=== PATIENT | female | born 1935 | race Caucasian/White ===

== ENCOUNTER → 2017-03-18 | Outpatient (CLI) | payer OTHER ==
[2017-03-18 17:54] LABS: HEMATOCRIT 40.8 % (37-47); MEAN CELL VOLUME 100.2 fL (80-100); MEAN CORPUSCULAR HEMOGLOBIN 33.4 pg (25-34); MEAN CORPUSCULAR HGB CONC 33.3 g/dl (32-36); PLATELET COUNT 168 K/uL (130-400); RED BLOOD COUNT 4.07 M/uL (4.2-5.4); WHITE BLOOD COUNT 6.65 K/uL (4.8-10.8)
[2017-03-18 18:13] LABS: ALT/SGPT 38 U/L (12-78); AST/SGOT 30 U/L (15-37); BLOOD UREA NITROGEN 17 mg/dl (7-18); BUN/CREATININE RATIO 17.9 (10-20); CALCIUM 8.9 mg/dl (8.5-10.1); CARBON DIOXIDE 30 mmol/L (21-32); CHLORIDE 106 mmol/L (98-107); CREATININE 0.95 mg/dl (0.60-1.20); GLUCOSE 90 mg/dl (70-99); POTASSIUM 3.9 mmol/L (3.5-5.1); SODIUM 142 mmol/L (136-145)
[2017-03-18 18:15] LABS: ALB/GLOB RATIO 0.9 (0.9-2); ALKALINE PHOSPHATASE 121 U/L (45-117)
== END | disposition home or self-care (01) ==
LOC: C.LABMFLN 13:33
PROVIDERS: ATTEND Physician Assistant
DX: I48.91 Unspecified atrial fibrillation (principal)

== ENCOUNTER → 2017-10-10 | Outpatient (CLI) | payer OTHER ==
[2017-10-10 18:04] LABS: HEMATOCRIT 38.9 % (37-47); HEMOGLOBIN 12.4 g/dL (12.0-16.0); MEAN CELL VOLUME 102.1 fL (80-100); MEAN CORPUSCULAR HEMOGLOBIN 32.5 pg (25-34); MEAN CORPUSCULAR HGB CONC 31.9 g/dl (32-36); MEAN PLATELET VOLUME 10.3 fL (7.4-10.4); PLATELET COUNT 244 K/uL (130-400); RED CELL DISTRIBUTION WIDTH CV 13.8 % (11.5-14.5); WHITE BLOOD COUNT 7.81 K/uL (4.8-10.8)
[2017-10-10 18:16] LABS: ALT/SGPT 23 U/L (12-78); AST/SGOT 27 U/L (15-37); BLOOD UREA NITROGEN 16 mg/dl (7-18); CALCIUM 9.3 mg/dl (8.5-10.1); CARBON DIOXIDE 31 mmol/L (21-32); CHOLESTEROL 107 mg/dl (0-200); CREATININE 0.95 mg/dl (0.60-1.20); GLUCOSE 96 mg/dl (70-99); POTASSIUM 3.9 mmol/L (3.5-5.1); SODIUM 140 mmol/L (136-145)
[2017-10-10 18:19] LABS: LDL CHOLESTEROL CALCULATED 46 mg/dl
== END | disposition home or self-care (01) ==
LOC: C.LABMFLN 14:57
PROVIDERS: ATTEND Internal Medicine Cardiovascular Disease
DX: I48.91 Unspecified atrial fibrillation (principal); I35.0 Nonrheumatic aortic (valve) stenosis; I42.9 Cardiomyopathy, unspecified; I25.10 Atherosclerotic heart disease of native coronary artery without angina pectoris

== ENCOUNTER 2019-10-15 21:13 | Inpatient (IN) ==
[2019-10-15] MEDS ORDERED: SODIUM CHLORIDE 0.9% 500 ML IV ONE (21:37)
[2019-10-15] MEDS ORDERED: CEFEPIME 2,000 MG/20 ML VIAL IV STA (21:37)
[2019-10-15] MEDS ORDERED: KETOROLAC TROMETHAMINE 15 MG/ML VIAL IV ONE (21:37)
--- NOTE | 2019-10-15 21:43 | Emergency Department Note ---
Impression & Plan Sepsis, Cellulitis, Tachycardia, Fever, Hypomagnesemia ED Provider Note NAME: SUDEEP HANNAH AGE: 84 SEX: F : 1935 ARRIVES VIA: Ambulance INFORMANT: [Patient][ems, nurse] ED PROVIDER(S): [Romaine Linares MD] CHIEF COMPLAINT: Fever HISTORY OF PRESENT ILLNESS: The patient is an 84-year-old female who presents from [facility] for a fever. The patient has no complaints. She is a poor historian and does not really want to be at this hospital. She received oral Tylenol just prior to arrival, 1 g was given. The fever was reported today. The patient denies any stuffy nose or nasal congestion. She has had no cough. The patient states that she is short of breath but this is baseline. She has had no vomiting, no diarrhea, no abdominal pain. She states that it does hurt somewhat to urinate but this is a common thing for her. She does have lymphedema, there is some right leg redness, she is unsure if the right leg redness is new or old. No further history obtainable given her mental state. A significant amount of the history was obtained from the nurses and EMS. Of note, no known coronavirus exposures. REVIEW OF SYSTEMS: Limited secondary to mental state, please see the HPI. PMHx/PSHx: See Below SOCIAL HISTORY: See Below. PHYSICAL EXAM: GENERAL: Patient is in no acute distress. HEENT: No acute trauma, normocephalic atraumatic, mucous membranes moist, no nasal congestion, no scleral icterus. NECK: No stridor, no adenopathy, no meningismus, trachea is midline. LUNGS: Clear to auscultation bilaterally when listening anterior, no wheeze, no rhonchi, breath sounds equal. HEART: Mildly tachycardic, subtle systolic murmur, normal rhythm. ABDOMEN: Soft, nontender, bowel sounds positive, no hernias, no peritonitis. EXTREMITIES: No cyanosis, significant bilateral pedal edema with some distal right leg erythema and warmth. No drainage. Full range of motion of all the joints without pain or difficulty, no signs for acute trauma. NEUROLOGIC: Poor historian, sleepy, moves all extremities. Awakens to loud voice and can answer simple directed questions. SKIN: No rash, no jaundice, no diaphoresis. DIFFERENTIAL DIAGNOSIS: Sepsis, UTI, pneumonia, metabolic, electrolyte abnormalities, cardiac sources, intracerebral event, toxicologic, neurologic, as well as other pathologies. EMERGENCY DEPARTMENT COURSE/PROCEDURES: ECG: Indication was tachycardia. EKG shows atrial fibrillation with a rate of 102. QTc is 375. There is diffuse nonspecific ST change. There is an old anterior infarct. No PVCs, no ST elevation. Continuous Cardiac Monitoring: An order was placed for continuous cardiac monitoring. The monitor shows a rate of 88 with atrial fibrillation Critical Care Note: I have personally spent greater than 42 minutes of critical care time in the direct management of this patient. This includes bedside care, interpretation of diagnostic studies, and testing, discussion with consultants, patient, and family members, and other required patient management activities. This 42 minutes is in excess of all separately billable procedures. MEDICAL DECISION MAKING: There is a moderate leukocytosis at 15,000, this could be consistent with infection. The patient is anemic with a hemoglobin of 10.4. This is a slight drop for her. There is a normal platelet count. No coagulopathy. Magnesium was low at 1.6. No kidney failure. No concerning liver enzyme elevation. EKG showed atrial fibrillation without any acute ischemic change. Cardiac enzyme testing x1 is not consistent with acute cardiac injury. Urinalysis does not show any evidence for infection. Blood cultures are pending. Influenza testing was negative. Chest film does not show pneumonia or CHF. On my exam, the patient did appear to have a right lower extremity cellulitis. The patient was aggressively managed. She did meet criteria for sepsis. The source is likely the right lower extremity cellulitis. She received IV saline, a total of 1 L was given. She received IV Toradol, IV magnesium, IV cefepime and IV vancomycin. She had already received oral Tylenol prior to arrival. I talked to the patient about her findings. She does seem to be in improved condition when compared to her arrival. I spoke with case management. The on- call hospitalist has been consulted. Past Med/Surg History Medical History Atrial fibrillation, chronic Coronary artery disease Dyslipidemia Hypertension Severe aortic stenosis Social History Preferred Language: Georgian Communication Ability: Effective Entry Level Project Coordinator Required: No Beliefs That Will Affect Care: None Current Living Situation: Family Feels Safe at Home: Yes Smoking Status: Never smoker Hx Alcohol Use: No Hx Substance Use: No Allergies Allergies Allergy/AdvReac Type Severity Reaction Status Date / Time aspirin Allergy Unknown Verified 10/15/19 22:34 milk Allergy Unknown Verified 10/15/19 22:34 Home Meds Home Medications Medication Instructions Recorded Confirmed Tylenol 650 mg PO Q4 PRN 10/15/19 10/15/19 albuterol sulfate 2 inh INHALATION Q6 PRN 10/15/19 10/15/19 alendronate 70 mg PO WK 10/15/19 10/15/19 aspirin [Aspir-81] 81 mg PO DAILY 10/15/19 10/15/19 atorvastatin 40 mg PO DAILY 10/15/19 10/15/19 bisacodyl 10 mg [place] DAILY PRN 10/15/19 10/15/19 calcium carbonate-vitamin D3 1 tab PO BID 10/15/19 10/15/19 [Calcium 500 + D] cholecalciferol (vitamin D3) 1,000 unit PO DAILY 10/15/19 10/15/19 [Vitamin D3] clopidogrel [Plavix] 75 mg PO DAILY 10/15/19 10/15/19 digoxin [Digox] 125 mcg PO MOWEFR 10/15/19 10/15/19 docusate sodium 100 mg PO BID PRN 10/15/19 10/15/19 heparin (porcine) 5,000 unit SUBCUT Q12H 10/15/19 10/15/19 melatonin 3 mg PO HS PRN 10/15/19 10/15/19 metoprolol succinate 200 mg PO DAILY 10/15/19 10/15/19 mirabegron [Myrbetriq] 25 mg PO DAILY 10/15/19 10/15/19 polyethylene glycol 3350 [Miralax] 17 g PO DAILY PRN 10/15/19 10/15/19 potassium chloride 10 meq PO BID 10/15/19 10/15/19 torsemide 20 mg PO DAILY 10/15/19 10/15/19 wheat dextrin [Benefiber Sugar 8 g PO BID 10/15/19 10/15/19 Free (dextrin)] Results & Data (ED) Vital Signs Vital Signs - 24 hr 10/15/19 21:19 10/15/19 21:21 10/15/19 21:22 Temperature 38.9 C H Temperature Source Oral Pulse Rate 114 H 120 H 124 H Pulse Rate from SpO2 Sensor 118 H 132 H Respiratory Rate 36 H 24 37 H Respiratory Effort / Characteristics Non-Labored Respiratory Depth Normal Blood Pressure 180/100 H 180/100 H Blood Pressure Mean 135 126 Pulse Oximetry 92 92 92 Oxygen Delivery Method Room Air Oxygen Flow Rate Sepsis Recent Fever Within 48 Hours Yes Sepsis Action Taken by Nursing No Action Required 10/15/19 21:30 10/15/19 21:31 10/15/19 21:40 Temperature Temperature Source Pulse Rate 106 H 116 H 114 H Pulse Rate from SpO2 Sensor 118 H 109 H 117 H Respiratory Rate 35 H 35 H 33 H Respiratory Effort / Characteristics Respiratory Depth Blood Pressure 107/53 L Blood Pressure Mean 55 Pulse Oximetry 92 92 90 Oxygen Delivery Method Oxygen Flow Rate Sepsis Recent Fever Within 48 Hours Sepsis Action Taken by Nursing 10/15/19 21:41 10/15/19 21:50 10/15/19 22:00 Temperature Temperature Source Pulse Rate 116 H 110 H Pulse Rate from SpO2 Sensor 114 H Respiratory Rate 30 H 36 H Respiratory Effort / Characteristics Respiratory Depth Blood Pressure Blood Pressure Mean Pulse Oximetry 90 99 89 L Oxygen Delivery Method Room Air Room Air Oxygen Flow Rate Sepsis Recent Fever Within 48 Hours Sepsis Action Taken by Nursing 10/15/19 22:07 10/15/19 22:10 10/15/19 22:16 Temperature Temperature Source Pulse Rate 110 H 106 H Pulse Rate from SpO2 Sensor 108 H 110 H Respiratory Rate 32 H 30 H Respiratory Effort / Characteristics Respiratory Depth Blood Pressure 103/40 L Blood Pressure Mean 48 Pulse Oximetry 99 99 99 Oxygen Delivery Method Nasal Cannula Nasal Cannula Oxygen Flow Rate 2 2 Sepsis Recent Fever Within 48 Hours Sepsis Action Taken by Nursing 10/15/19 22:20 10/15/19 22:30 10/15/19 22:31 Temperature Temperature Source Pulse Rate 88 113 H 103 H Pulse Rate from SpO2 Sensor Respiratory Rate 26 H 33 H 30 H Respiratory Effort / Characteristics Respiratory Depth Blood Pressure Blood Pressure Mean 123 Pulse Oximetry Oxygen Delivery Method Oxygen Flow Rate Sepsis Recent Fever Within 48 Hours Sepsis Action Taken by Nursing 10/15/19 22:35 10/15/19 22:40 Temperature Temperature Source Pulse Rate 111 H 100 H Pulse Rate from SpO2 Sensor 108 H 107 H Respiratory Rate 29 H 28 H Respiratory Effort / Characteristics Respiratory Depth Blood Pressure 102/61 Blood Pressure Mean 74 Pulse Oximetry 99 99 Oxygen Delivery Method Oxygen Flow Rate Sepsis Recent Fever Within 48 Hours Sepsis Action Taken by Custodial Medications Current Medication List: was personally reviewed by me Laboratory Data Attestation: I reviewed the patient's lab results. Result diagrams: 10/15/19 22:07 10/15/19 22:07 Lab Results 10/15/19 10/15/19 10/15/19 Range/Units 22:07 22:07 22:07 WBC 15.10 H (4.8-10.8) K/uL RBC 3.26 L (4.2-5.4) M/uL Hgb 10.4 L (12.0-16.0) g/dL Hct 32.9 L (37-47) % MCV 100.9 H (80-100) fL MCH 31.9 (25-34) pg MCHC 31.6 L (32-36) g/dL RDW Std Deviation 52.7 H (36.4-46.3) fL RDW Coeff of Vanita 14.3 (11.5-14.5) % Plt Count 264 (130-400) K/uL MPV 10.5 H (7.4-10.4) fL Immature Gran % (Auto) 0.7 % Neut % (Auto) 80.5 % Lymph % (Auto) 8.1 % Weber % (Auto) 10.4 % Eos % (Auto) 0.2 % Baso % (Auto) 0.1 % Immature Gran # (Auto) 0.10 H (0.00-0.02) K/uL Neut # (Auto) 12.15 H (1.4-6.5) K/uL Lymph # (Auto) 1.23 (1.2-3.4) K/uL Weber # (Auto) 1.57 H (0.11-0.59) K/uL Eos # (Auto) 0.03 (0-0.5) K/uL Baso # (Auto) 0.02 (0-0.2) K/uL Absolute Nucleated RBC 0.08 H (0-0) K/uL Nucleated RBC % (auto) 0.5 % PT 11.4 (9.0-12.0) Seconds INR 1.1 (0.9-1.1) APTT 28.9 (21.0-31.0) Seconds PTT Ratio 1.0 Sodium (136-145) mmol/L Potassium (3.5-5.1) mmol/L Chloride (98-107) mmol/L Carbon Dioxide (21-32) mmol/L Anion Gap (3-11) BUN (7-18) mg/dl Creatinine (0.6-1.2) mg/dl Est Cr Clr Drug Dosing ml/min Est GFR ( Amer) Est GFR (Non-Af Amer) BUN/Creatinine Ratio (10-20) Glucose (70-99) mg/dl Lactate (0.4-2.0) mmol/L Calcium (8.5-10.1) mg/dl Magnesium (1.8-2.4) mg/dl Total Bilirubin (0.2-1) mg/dl AST (15-37) U/L ALT (12-78) U/L Alkaline Phosphatase (45-117) U/L Troponin I (0-0.045) ng/ml Total Protein (6.4-8.2) gm/dl Albumin (3.4-5.0) gm/dl Globulin (2.5-4.0) gm/dl Albumin/Globulin Ratio (0.9-2) Procalcitonin 2.13 H (0-0.5) ng/ml Urine Color Urine Appearance (Clear) Urine pH (4.5-7.5) Ur Specific Nash (1.000-1.030) Urine Protein (Negative) Urine Glucose (UA) (Negative) Urine Ketones (Negative) Urine Blood (Negative) Urine Nitrite (Negative) Urine Bilirubin (Negative) Urine Urobilinogen (Negative) Ur Leukocyte Esterase (Negative) Urine WBC (Auto) (0-5) /hpf Urine RBC (Auto) (0-4) /hpf U Hyaline Cast (Auto) (0-5) /lpf U Epithel Cells (Auto) (0-5) /lpf Urine Bacteria (Auto) (Negative) Influenza Type A (PCR) (Neg) Influenza Type B (PCR) (Neg) 10/15/19 10/15/19 10/15/19 Range/Units 22:07 22:07 22:10 WBC (4.8-10.8) K/uL RBC (4.2-5.4) M/uL Hgb (12.0-16.0) g/dL Hct (37-47) % MCV (80-100) fL MCH (25-34) pg MCHC (32-36) g/dL RDW Std Deviation (36.4-46.3) fL RDW Coeff of Vanita (11.5-14.5) % Plt Count (130-400) K/uL MPV (7.4-10.4) fL Immature Gran % (Auto) % Neut % (Auto) % Lymph % (Auto) % Weber % (Auto) % Eos % (Auto) % Baso % (Auto) % Immature Gran # (Auto) (0.00-0.02) K/uL Neut # (Auto) (1.4-6.5) K/uL Lymph # (Auto) (1.2-3.4) K/uL Weber # (Auto) (0.11-0.59) K/uL Eos # (Auto) (0-0.5) K/uL Baso # (Auto) (0-0.2) K/uL Absolute Nucleated RBC (0-0) K/uL Nucleated RBC % (auto) % PT (9.0-12.0) Seconds INR (0.9-1.1) APTT (21.0-31.0) Seconds PTT Ratio Sodium 137 (136-145) mmol/L Potassium 4.2 (3.5-5.1) mmol/L Chloride 100 (98-107) mmol/L Carbon Dioxide 36 H (21-32) mmol/L Anion Gap 1.0 L (3-11) BUN 21 H (7-18) mg/dl Creatinine 1.03 (0.6-1.2) mg/dl Est Cr Clr Drug Dosing 39.2 ml/min Est GFR ( Amer) 58.2 Est GFR (Non-Af Amer) 50.2 BUN/Creatinine Ratio 20.5 H (10-20) Glucose 125 H (70-99) mg/dl Lactate 1.3 (0.4-2.0) mmol/L Calcium 9.4 (8.5-10.1) mg/dl Magnesium 1.6 L (1.8-2.4) mg/dl Total Bilirubin 0.9 (0.2-1) mg/dl AST 33 (15-37) U/L ALT 33 (12-78) U/L Alkaline Phosphatase 112 (45-117) U/L Troponin I 0.031 (0-0.045) ng/ml Total Protein 6.0 L (6.4-8.2) gm/dl Albumin 2.1 L (3.4-5.0) gm/dl Globulin 3.9 (2.5-4.0) gm/dl Albumin/Globulin Ratio 0.5 L (0.9-2) Procalcitonin (0-0.5) ng/ml Urine Color Urine Appearance (Clear) Urine pH (4.5-7.5) Ur Specific Nash (1.000-1.030) Urine Protein (Negative) Urine Glucose (UA) (Negative) Urine Ketones (Negative) Urine Blood (Negative) Urine Nitrite (Negative) Urine Bilirubin (Negative) Urine Urobilinogen (Negative) Ur Leukocyte Esterase (Negative) Urine WBC (Auto) (0-5) /hpf Urine RBC (Auto) (0-4) /hpf U Hyaline Cast (Auto) (0-5) /lpf U Epithel Cells (Auto) (0-5) /lpf Urine Bacteria (Auto) (Negative) Influenza Type A (PCR) Neg for Influ A (Neg) Influenza Type B (PCR) Neg for Influ B (Neg) 10/15/19 Range/Units 22:10 WBC (4.8-10.8) K/uL RBC (4.2-5.4) M/uL Hgb (12.0-16.0) g/dL Hct (37-47) % MCV (80-100) fL MCH (25-34) pg MCHC (32-36) g/dL RDW Std Deviation (36.4-46.3) fL RDW Coeff of Vanita (11.5-14.5) % Plt Count (130-400) K/uL MPV (7.4-10.4) fL Immature Gran % (Auto) % Neut % (Auto) % Lymph % (Auto) % Weber % (Auto) % Eos % (Auto) % Baso % (Auto) % Immature Gran # (Auto) (0.00-0.02) K/uL Neut # (Auto) (1.4-6.5) K/uL Lymph # (Auto) (1.2-3.4) K/uL Weber # (Auto) (0.11-0.59) K/uL Eos # (Auto) (0-0.5) K/uL Baso # (Auto) (0-0.2) K/uL Absolute Nucleated RBC (0-0) K/uL Nucleated RBC % (auto) % PT (9.0-12.0) Seconds INR (0.9-1.1) APTT (21.0-31.0) Seconds PTT Ratio Sodium (136-145) mmol/L Potassium (3.5-5.1) mmol/L Chloride (98-107) mmol/L Carbon Dioxide (21-32) mmol/L Anion Gap (3-11) BUN (7-18) mg/dl Creatinine (0.6-1.2) mg/dl Est Cr Clr Drug Dosing ml/min Est GFR ( Amer) Est GFR (Non-Af Amer) BUN/Creatinine Ratio (10-20) Glucose (70-99) mg/dl Lactate (0.4-2.0) mmol/L Calcium (8.5-10.1) mg/dl Magnesium (1.8-2.4) mg/dl Total Bilirubin (0.2-1) mg/dl AST (15-37) U/L ALT (12-78) U/L Alkaline Phosphatase (45-117) U/L Troponin I (0-0.045) ng/ml Total Protein (6.4-8.2) gm/dl Albumin (3.4-5.0) gm/dl Globulin (2.5-4.0) gm/dl Albumin/Globulin Ratio (0.9-2) Procalcitonin (0-0.5) ng/ml Urine Color Yellow Urine Appearance Clear (Clear) Urine pH 7.5 (4.5-7.5) Ur Specific Nash 1.014 (1.000-1.030) Urine Protein Negative (Negative) Urine Glucose (UA) Negative (Negative) Urine Ketones Negative (Negative) Urine Blood Negative (Negative) Urine Nitrite Negative (Negative) Urine Bilirubin Negative (Negative) Urine Urobilinogen Negative (Negative) Ur Leukocyte Esterase Trace H (Negative) Urine WBC (Auto) 1-5 (0-5) /hpf Urine RBC (Auto) 0-4 (0-4) /hpf U Hyaline Cast (Auto) 1-5 (0-5) /lpf U Epithel Cells (Auto) 10-20 H (0-5) /lpf Urine Bacteria (Auto) 1+ H (Negative) Influenza Type A (PCR) (Neg) Influenza Type B (PCR) (Neg) Administered Medications Vancomycin HCl 1,750 mg/ (Sodium Chloride) 535 mls @ 200 mls/hr IV NOW ONE Stop: 10/16/19 01:15 Last Admin: 10/15/19 22:57 Dose: 200 mls/hr Documented by: [id number] Discontinued Medications Sodium Chloride (Nss) 500 mls @ 999 mls/hr IV .Q31M ONE Stop: 10/15/19 22:07 Last Infusion: 10/15/19 22:36 Dose: 0 mls/hr Documented by: [id number] Admin: 10/15/19 22:14 Dose: 999 mls/hr Documented by: [id number] Cefepime HCl (Maxipime) 2,000 mg in 20 mls @ 5 mls/min IV NOW STA; Protocol Stop: 10/15/19 21:40 Last Admin: 10/15/19 22:14 Dose: 5 mls/min Documented by: [id number] Sodium Chloride (Nss 1000ml) 500 mls @ 999 mls/hr IV .Q31M ONE Stop: 10/15/19 22:53 Last Admin: 10/15/19 22:36 Dose: 999 mls/hr Documented by: [id number] Ketorolac Tromethamine (Toradol) 10 mg IV NOW ONE Stop: 10/15/19 21:38 Last Admin: 10/15/19 22:14 Dose: 10 mg Documented by: [id number] Imaging Data Radiologist's Impression: SINGLE VIEW CHEST CLINICAL HISTORY: Sepsis. FINDINGS: An AP, portable, upright chest radiograph is obtained. No prior studies are available for comparison at the time of dictation. The examination is degraded by portable technique and patient rotation. There is evidence of cardiac valve surgery. The heart is enlarged noting atherosclerotic calcification of the thoracic aorta. The pulmonary vasculature is noncongested. Platelike atelectasis is seen at the left lung base. No airspace consolidation is identified typical for pneumonia and there is no large pleural effusion. No pneumothorax is seen. The skeletal structures are osteopenic. There are healed left-sided rib fractures. IMPRESSION: Cardiomegaly with no acute cardiopulmonary abnormality. Blood Pressure Blood Pressure Findings: Elevated blood pressure Blood Pressure Disposition: elevated BP felt to be situational Discharge Plan Visit Data Chief Complaint: Fever Stated Complaint: FEVER ED Provider: Romaine Linares Discharge Problem: Sepsis, Cellulitis, Tachycardia, Fever, Hypomagnesemia Patient Disposition: Being Evaluated by Hospitalist Condition: Fair Forms Stand Alone Forms: On License Of [facility] Prescriptions Prescriptions: No Action atorvastatin 40 mg Tablet 40 mg PO DAILY RF: 0 potassium chloride 10 mEq Capsule, Extended Release 10 meq PO BID RF: 0 torsemide 20 mg Tablet 20 mg PO DAILY RF: 0 polyethylene glycol 3350 [Miralax] 17 gram Powder In Packet 17 g PO DAILY PRN (Reason: Constipation) RF: 0 alendronate 70 mg Tablet 70 mg PO WK RF: 0 metoprolol succinate 100 mg Tablet Extended Release 24 Hr 200 mg PO DAILY RF: 0 melatonin 3 mg Tablet 3 mg PO HS PRN (Reason: Sleep) RF: 0 clopidogrel [Plavix] 75 mg Tablet 75 mg PO DAILY RF: 0 aspirin [Aspir-81] 81 mg Tablet,Delayed Release (Dr/Ec) 81 mg PO DAILY RF: 0 bisacodyl 10 mg Suppository 10 mg [place] DAILY PRN (Reason: Constipation) RF: 0 docusate sodium 100 mg Capsule 100 mg PO BID PRN (Reason: Constipation) RF: 0 digoxin [Digox] 125 mcg (0.125 mg) tablet 125 mcg PO MOWEFR RF: 0 albuterol sulfate 90 mcg/actuation Hfa Aerosol Inhaler 2 inh INHALATION Q6 PRN (Reason: Wheezing) RF: 0 heparin (porcine) 5,000 unit/mL Syringe 5,000 unit SUBCUT Q12H RF: 0 calcium carbonate-vitamin D3 [Calcium 500 + D] 500 mg(1,250mg) -200 unit Tablet 1 tab PO BID RF: 0 cholecalciferol (vitamin D3) [Vitamin D3] 25 mcg (1,000 unit) Tablet 1,000 unit PO DAILY RF: 0 Myrbetriq 25 mg Tablet Extended Release 24 Hr 25 mg PO DAILY RF: 0 Benefiber Sugar Free (dextrin) 3 gram/4 gram Powder 8 g PO BID RF: 0 Tylenol 650 mg PO Q4 PRN (Reason: Pain) RF: 0 Referrals Referrals: Xenia Metz DO [Primary Care Provider] - Discharge Problem: Sepsis Qualifiers: Sepsis type: sepsis due to unspecified organism Sepsis acute organ dysfunction status: without acute organ dysfunction Qualified Code(s): A41.9 - Sepsis, unspecified organism Cellulitis Qualifiers: Site of cellulitis: extremity Site of cellulitis of extremity: lower extremity Laterality: right Qualified Code(s): L03.115 - Cellulitis of right lower limb Fever Qualifiers: Fever type: unspecified Qualified Code(s): R50.9 - Fever, unspecified
[2019-10-15 22:23] LABS: Basophils # (auto) 0.02 K/uL (0-0.2); Basophils % (auto) 0.1 %; Eosinophils # (auto) 0.03 K/uL (0-0.5); Eosinophils % (auto) 0.2 %; Hematocrit (blood only) 32.9 % (37-47); Hemoglobin 10.4 g/dL (12.0-16.0); Immature Granulocytes % (auto) 0.7 %; Lymphocytes # (auto) 1.23 K/uL (1.2-3.4); Lymphocytes % (auto) 8.1 %; Mean Corpuscular Hemoglobin 31.9 pg (25-34); Mean Corpuscular Hgb Conc 31.6 g/dL (32-36); Mean Corpuscular Volume 100.9 fL (80-100); Mean Platelet Volume 10.5 fL (7.4-10.4); Monocytes # (auto) 1.57 K/uL (0.11-0.59); Monocytes % (auto) 10.4 %; Neutrophils # (auto) 12.15 K/uL (1.4-6.5); Neutrophils % (auto) 80.5 %; Nucleated RBC # (auto) 0.08 K/uL (0-0); Nucleated RBC % (auto) 0.5 %; Platelet Count 264 K/uL (130-400); RDW Coefficient of Variation 14.3 % (11.5-14.5); RDW Standard Deviation 52.7 fL (36.4-46.3); Red Blood Count 3.26 M/uL (4.2-5.4)
[2019-10-15] MEDS ORDERED: SODIUM CHLORIDE 0.9% 1000ML 500 ML IV ONE (22:23)
--- NOTE | 2019-10-15 22:27 | XRay Report ---
SINGLE VIEW CHEST CLINICAL HISTORY: Sepsis. FINDINGS: An AP, portable, upright chest radiograph is obtained. No prior studies are available for c omparison at the time of dictation. The examination is degraded by portable technique and patient ro tation. There is evidence of cardiac valve surgery. The heart is enlarged noting atherosclerotic calc ification of the thoracic aorta. The pulmonary vasculature is noncongested. Platelike atelectasis is seen at the left lung base. No airspace consolidation is identified typical for pneumonia and there i s no large pleural effusion. No pneumothorax is seen. The skeletal structures are osteopenic. There a re healed left-sided rib fractures. IMPRESSION: Cardiomegaly with no acute cardiopulmonary abnormality. ACT 112: Negative or not required by law. Electronically signed by: Romaine Castelan M.D. 10/15/2019 10:25 PM
[2019-10-15 22:28] LABS: Appearance Urine Clear (Clear); Bacteria Urine Automated 1+ (Negative); Bilirubin Urine Negative (Negative); Blood Urine Negative (Negative); Color Urine Yellow; Glucose Urine UA Negative (Negative); Ketones Urine Negative (Negative); Leukocyte Esterase Urine Trace (Negative); Nitrite Urine Negative (Negative); Protein Urine Negative (Negative); RBC Urine Automated 0-4 /hpf (0-4); Specific Gravity Urine 1.014 (1.000-1.030); Urobilinogen Urine Negative (Negative); pH Urine 7.5 (4.5-7.5)
[2019-10-15 22:33] LABS: INR 1.1 (0.9-1.1); Partial Thromboplastin Time 28.9 Seconds (21.0-31.0); Prothrombin Time 11.4 Seconds (9.0-12.0)
[2019-10-15] MEDS ORDERED: VANCOMYCIN HCL 1,750 MG in SODIUM CHLORIDE 0.9% 500 ML IV ONE (22:35)
[2019-10-15] MEDS ORDERED: VANCOMYCIN CONSULT ACTIVE PRN (22:35)
[2019-10-15 22:39] LABS: Albumin Level 2.1 gm/dl (3.4-5.0); BUN Creatinine Ratio 20.5 (10-20); Calcium 9.4 mg/dl (8.5-10.1); Creatinine Clr Calc Pharmacy 39.2 ml/min; Est GFR (African American) 58.2; Est GFR (Non-African American) 50.2; Magnesium 1.6 mg/dl (1.8-2.4); Potassium 4.2 mmol/L (3.5-5.1)
[2019-10-15 22:44] LABS: Albumin Globulin Ratio 0.5 (0.9-2); Bilirubin,Total 0.9 mg/dl (0.2-1); Globulin 3.9 gm/dl (2.5-4.0); Troponin I 0.031 ng/ml (0-0.045)
[2019-10-15] MEDS ORDERED: MAGNESIUM SULFATE / D5W 1 GM/100 ML BAG IV ONE (22:54)
[2019-10-15 23:03] LABS: Influenza A virus by PCR Neg for Influ A (Neg); Influenza B virus by PCR Neg for Influ B (Neg)
[2019-10-16] MEDS ORDERED: ALBUTEROL HFA 8 GM INHALER INH PRN (00:52)
[2019-10-16] MEDS ORDERED: DOCUSATE SODIUM 100 MG CAP PO PRN (00:52)
[2019-10-16] MEDS ORDERED: NITROGLYCERIN SL 0.4 MG/TAB TAB SL PRN (00:52)
[2019-10-16] MEDS ORDERED: bisacodyL 10 MG SUPP PR PRN (00:52)
[2019-10-16] MEDS ORDERED: POLYETHYLENE (MIRALAX) 17 GM PACK PO PRN (00:52)
[2019-10-16] MEDS ORDERED: ONDANSETRON INJ 2 MG/ML 2 ML VIAL IV PRN (00:52)
[2019-10-16] MEDS ORDERED: VANCOMYCIN HCL 1,000 MG in SODIUM CHLORIDE 0.9% 250 ML IV SCH (00:52)
[2019-10-16] MEDS ORDERED: VANCOMYCIN CONSULT ACTIVE PRN (00:52)
[2019-10-16] MEDS ORDERED: CEFEPIME CONSULT ACTIVE PRN (01:10)
[2019-10-16] MEDS: DIGOXIN 0.125 MG TAB PO SCH (01:46)
[2019-10-16] MEDS: SODIUM CHLORIDE 0.9% 1000ML 1,000 ML IV SCH ×3 (01:46→20:42)
--- NOTE | 2019-10-16 02:20 | History and Physical Report ---
DATE OF ADMISSION: 10/15/2019 CHIEF COMPLAINT: Fever. HISTORY OF PRESENT ILLNESS: An 84-year-old female with past medical history significant for hyperlipidemia, history of paroxysmal atrial fibrillation, history of severe aortic stenosis, status post TAVR, history of CAD, hypertension, idiopathic cardiomyopathy, mild protein-calorie malnutrition, obesity, chronic kidney disease stage III, osteoporosis, lymphedema, unsteady gait, history of CVA, generalized weakness. The patient presents from [facility] with fever. The patient says she lives with her [id number]. She was admitted to [facility] a couple of days ago because she was falling frequently .She developed fever today that is why she was sent here. The patient is somewhat hard of hearing, but able to answer the questions. She denies any cough, no chest pain, no shortness of breath, no nausea, no vomiting, no headache, no blurred vision, no earache, no runny nose, no sore throat. She says she eats fine. No difficulty swallowing. No nausea, no abdominal pain, no diarrhea or constipation. Normal bladder movements. Currently was tachycardic in the ER and was spiking temperature. That is improving with the fluid boluses. She was given vancomycin and cefepime in the ER. No COVID cases in [facility] as per ER. ALLERGIES: ASPIRIN, MILK. PAST MEDICAL HISTORY: As mentioned above. PAST SURGICAL HISTORY: Cardiac catheterization, lasering of cataract surgery, tonsillectomy, bilateral cataract surgeries. MEDICATIONS: The patient is on albuterol 2 inhalation q. 6 hours p.r.n., alendronate 70 mg p.o. weekly, aspirin 81 mg p.o. daily, atorvastatin 40 mg p.o. daily, bisacodyl 10 mg daily p.r.n., calcium and vitamin D 1 tablet b.i.d., vitamin D 1000 units p.o. daily, Plavix 75 mg p.o. daily, digoxin 125 mcg p.o. on Friday, Friday and Friday, Colace 100 mg p.o. b.i.d. p.r.n., heparin 5000 units subcutaneous q. 12 hours, melatonin 3 mg p.o. at bedtime p.r.n., Toprol-XL 200 mg p.o. daily, Myrbetriq 25 mg p.o. daily, MiraLax 17 g p.o. daily p.r.n., potassium chloride 20 mEq p.o. b.i.d., torsemide 20 mg p.o. daily, Tylenol 650 mg p.o. q. 4 hours p.r.n.,wheat dextrin 8 grams p.o. b.i.d. FAMILY HISTORY: Significant for father had prostate cancer, brother has heart disorder and stroke. SOCIAL HISTORY: Lives with her [id number]. Currently living at [facility]. No smoking, no alcohol, no drug use. REVIEW OF SYSTEMS: As per HPI. Rest of the review of systems negative. PHYSICAL EXAMINATION: GENERAL: The patient is old and frail, not in acute distress. VITAL SIGNS: Temperature T-max was 38.9, pulse 100, respiratory rate 24, blood pressure 89/38, oxygen 99% on 2 liters. HEENT: No pallor, no icterus. Pupils equal, round, reactive. NECK: No JVD, no neck masses. CARDIOVASCULAR: S1, S2 heard, regular. Tachycardia. No murmurs. RESPIRATORY SYSTEM: Normal AP diameter. No accessory muscle use. No wheezing, no crackles. ABDOMEN: Soft, bowel sounds present, nontender. No distention. CENTRAL NERVOUS SYSTEM: Alert and oriented x3. Obeys simple commands, answers questions appropriately. Moves extremities. EXTREMITIES: Bilateral lower extremity chronic lymphedema present. Lower extremity erythema seen more on the right leg and also warm on palpation. LABORATORY DATA: WBC 15, hemoglobin 10.4, hematocrit 31.9, platelets 264. PT 11.4, INR 1.1, APTT 28.9. Sodium 137, potassium 4.2, chloride 100, bicarbonate 36, BUN 21, creatinine 1.03, serum glucose 125. Lactate 1.3, calcium 9.4, magnesium 1.6, total bilirubin 0.9, AST 33, ALT 33, alkaline phosphatase 112. Troponin I of 0.031. Procalcitonin 2.1. Leukocyte esterase. Influenza A and B PCR negative. IMAGING DATA: Chest x-ray, no acute findings. EKG: Atrial fibrillation with rapid ventricular response at rate of 102. No previous ECG is available. ASSESSMENT AND PLAN: This is an 84-year-old female who presents with fever and found to be in sepsis secondary to right lower extremity cellulitis. 1. Sepsis, Meets criteria for sepsis with fever spike, tachycardia, elevated white count, elevated procalcitonin. Sepsis is mostly secondary to lower extremity cellulitis. Received vancomycin and cefepime in the ER which will continue. Follow the cultures. . Received 1.5 L fluids in the ER. We will continue with IV normal saline 100 mL per hour and monitor in the tele floor. Monitor for the response. 2. History of severe aortic stenosis, status post TAVR. History of idiopathic cardiomyopathy, on torsemide, which we will hold. We will also hold potassium supplements while torsemide is held. Getting fluids. We will monitor for any volume overload. 3. Chronic kidney disease stage III, presents with creatinine of 1. We will follow the labs. 4. History of coronary artery disease, old [place], on aspirin, on Plavix, statin and Toprol-XL, currently stable. We will monitor. 5. History of paroxysmal atrial fibrillation, on digoxin and Toprol-XL. As per the records, she refused anticoagulation. 6. Hyperlipidemia, on statin. 7. History of unsteady gait, chronic lymphedema. The patient was sent to [facility] a couple of days ago because of frequent falls. 8. History of cerebrovascular accident, on aspirin and statin. 9. Generalized weakness. PT and OT when stable. 10. Deep venous thrombosis prophylaxis, on heparin subQ. DISPOSITION: Admit to [facility]. PT and OT prior to discharge. Social service to help with discharge planning. Possible discharge back to [facility] when stable. LILIAD
[2019-10-16 05:30] LABS: Basophils # (auto) 0.04 K/uL (0-0.2); Basophils % (auto) 0.2 %; Eosinophils # (auto) 0.13 K/uL (0-0.5); Eosinophils % (auto) 0.7 %; Hematocrit (blood only) 29.4 % (37-47); Hemoglobin 9.1 g/dL (12.0-16.0); Immature Granulocytes % (auto) 0.6 %; Lymphocytes # (auto) 2.76 K/uL (1.2-3.4); Lymphocytes % (auto) 15.8 %; Mean Corpuscular Hemoglobin 31.6 pg (25-34); Mean Corpuscular Volume 102.1 fL (80-100); Monocytes # (auto) 1.72 K/uL (0.11-0.59); Monocytes % (auto) 9.8 %; Neutrophils # (auto) 12.75 K/uL (1.4-6.5); Neutrophils % (auto) 72.9 %; Nucleated RBC # (auto) 0.05 K/uL (0-0); Nucleated RBC % (auto) 0.3 %; Platelet Count 232 K/uL (130-400); RDW Coefficient of Variation 14.4 % (11.5-14.5); RDW Standard Deviation 53.7 fL (36.4-46.3); Red Blood Count 2.88 M/uL (4.2-5.4)
[2019-10-16 05:47] LABS: BUN Creatinine Ratio 21.3 (10-20); Calcium 8.5 mg/dl (8.5-10.1); Creatinine Clr Calc Pharmacy 38.7 ml/min; Est GFR (African American) 60.3; Est GFR (Non-African American) 52.1
[2019-10-16] MEDS: ASPIRIN 81 MG ECTAB PO SCH (08:03)
[2019-10-16] MEDS: METOPROLOL SUCC 50MG EXT REL TAB PO SCH (08:03)
[2019-10-16] MEDS: ATORVASTATIN 40 MG TAB PO SCH (08:03)
[2019-10-16] MEDS: CLOPIDOGREL BISULFATE 75 MG TAB PO SCH (08:03)
[2019-10-16] MEDS: CHOLECALCIFEROL 1,000 UNITS 25 MCG TAB PO SCH (08:03)
[2019-10-16] MEDS: PSYLLIUM 58.6% POWDER PACKET PO SCH ×2 (08:04→20:45)
[2019-10-16] MEDS: CALCIUM 600MG + VIT D 400 IU TAB PO SCH ×2 (08:04→20:44)
[2019-10-16] MEDS: MIRABEGRON ER 25 MG TAB PO SCH (08:04)
[2019-10-16] MEDS: TORSEMIDE 20 MG TAB PO SCH (08:04)
[2019-10-16] MEDS: HEPARIN SOD 5,000 UNIT/0.5 ML VIAL SQ SCH ×2 (08:05→20:43)
--- NOTE | 2019-10-16 08:53 | Hospitalist Progress Note ---
Date of Service October 16, 2019 Assessment & Plan (1) Sepsis: (2) Cellulitis: (3) Tachycardia: (4) Fever: (5) Hypomagnesemia: (6) Dyslipidemia: (7) Hypertension: (8) Coronary artery disease: (9) Atrial fibrillation, chronic: (10) Severe aortic stenosis: ASSESSMENT AND PLAN: This is an 84-year-old female who presents with fever and found to be in sepsis secondary to right lower extremity cellulitis. 1. Sepsis, POA, Meets criteria for sepsis with fever spike, tachycardia, elevated white count, elevated procalcitonin. Sepsis is secondary to lower extremity cellulitis. Received vancomycin and cefepime in the ER which we continued. Follow the cultures. Received 1.5 L fluids in the ER. IVF 2. History of severe aortic stenosis, status post TAVR. History of idiopathic cardiomyopathy, on torsemide, which we will hold. We will also hold potassium supplements while torsemide is held. Getting fluids. We will monitor for any volume overload. 3. Chronic kidney disease stage III, presents with creatinine of 1. Monitor daily labs 4. Coronary artery disease, old [place], on aspirin, on Plavix, statin and Toprol- XL, currently stable. We will monitor. 5. History of paroxysmal atrial fibrillation, on digoxin and Toprol-XL. As per the records, she refused anticoagulation. 6. Hyperlipidemia, on statin. 7. History of unsteady gait, chronic lymphedema. The patient was sent to [facility] a couple of days ago because of frequent falls. 8. History of cerebrovascular accident, on aspirin and statin. 9. Generalized weakness. PT and OT when stable. 10. Deep venous thrombosis prophylaxis, on heparin subQ. DISPOSITION: Continue tele. PT and OT prior to discharge. Social service to help with discharge planning. Possible discharge back to [facility] when stable. labs checked ROS-No Headache, No Visual Changes, No Nausea, No Vomiting, No Fever, No Chills, No Neck Pain or Stiffness, No Chest Pain, No Palpitations, No SOB, No LIMON, No Cough, No Sputum, No Wheezing, No Abdominal Pain, No Diarrhea, No Hematemesis, No Hemoptysis, No Unexpected Weight Loss, No Flank pain, No Melena, No Hematochezia, No Frequency, No Urgency, No Burning, No Hematuria, No Rashes, No Diaphoresis. Appetite is Normal Physical Exam Gen-AAO x 3, NAD, Afebrile, +fever last night Head-NCAT, EOMI, PERRLA, Anicteric Sclera, No Posterior Pharyngeal Erythema Neck-Supple, No JVD, No Thyromegaly, No Masses, No LAD, No Bruits Lungs-Clear to Auscultation Bilaterally, No Rales, No Rhonchi, No Wheezing, No Crepitus Chest-No S4, +S1, +S2, No S3, No Murmurs, No Rubs, No Gallops, No Ectopy Abdomen-Soft, Bowel Sounds Present, Non Tender, Non Distended, No Hepatomegaly, No Splenomegaly, No Palpable Masses, No Rebound, No Rigidity, No Guarding Musculoskeletal-Full Range of Motion Bilaterally, No CVAT Extremities-No Cyanosis, No Clubbing, No Edema Nuero-Cranial Nerves II-XII grossly intact, Motor WNL, DTRs WNL, Strength WNL, Non Focal Psych-Normal Mood Admission and Anticipated Discharge Date Admission Date: October 15, 2019 Anticipated date of discharge: 10/18/19 Results & Data Results & Data ([facility]) Vital Signs (Past 12 Hours) Vital Signs Temp Pulse Pulse Resp BP BP Pulse Ox 10/16/19 07:06 36.5 C 75 20 109/47 L 95 10/16/19 03:56 36.6 C 78 24 102/44 L 94 10/16/19 01:46 84 10/16/19 00:31 36.8 C 82 20 99/40 L 100 10/16/19 00:10 95 H 24 99 10/16/19 00:01 94 H 25 H 99 10/16/19 00:00 87 25 H 89/41 L 99 10/15/19 23:50 97 H 26 H 99 10/15/19 23:40 97 H 27 H 100 10/15/19 23:31 108 H 27 H 100 10/15/19 23:30 112 H 22 95/53 L 99 10/15/19 23:29 99 H 28 H 93/43 L 100 10/15/19 23:20 110 H 23 100 10/15/19 23:10 37.4 C 100 H 24 99 10/15/19 23:01 105 H 25 H 99 10/15/19 23:00 114 H 24 89/38 L 99 10/15/19 22:50 95 H 25 H 99 10/15/19 22:40 100 H 28 H 99 10/15/19 22:35 111 H 29 H 102/61 99 10/15/19 22:31 103 H 30 H 10/15/19 22:30 113 H 33 H 10/15/19 22:20 88 26 H 10/15/19 22:16 99 10/15/19 22:10 106 H 30 H 99 10/15/19 22:07 110 H 32 H 103/40 L 99 10/15/19 22:00 110 H 36 H 89 L 10/15/19 21:50 116 H 30 H 99 10/15/19 21:41 90 10/15/19 21:40 114 H 33 H 90 10/15/19 21:31 116 H 35 H 107/53 L 92 10/15/19 21:30 106 H 35 H 92 10/15/19 21:22 124 H 37 H 92 10/15/19 21:21 38.9 C H 120 H 24 180/100 H 92 10/15/19 21:19 114 H 36 H 180/100 H 92 (1) Sepsis Sepsis acute organ dysfunction status: without acute organ dysfunction Sepsis type: sepsis due to unspecified organism Qualified Code(s): A41.9 - Sepsis, unspecified organism (2) Cellulitis Laterality: right Site of cellulitis: extremity Site of cellulitis of extremity: lower extremity Qualified Code(s): L03.115 - Cellulitis of right lower limb (3) Fever Fever type: unspecified Qualified Code(s): R50.9 - Fever, unspecified
--- NOTE | 2019-10-16 10:16 | Electrocardiogram Report ---
Test Reason : Blood Pressure : / mmHG Vent. Rate : 102 BPM Atrial Rate : 288 BPM P-R Int : 000 ms QRS Dur : 066 ms QT Int : 288 ms P-R-T Axes : 000 083 111 degrees QTc Int : 375 ms Atrial fibrillation with rapid ventricular response Low voltage QRS Cannot rule out Anteroseptal infarct , age undetermined Nonspecific T wave abnormality Abnormal ECG No previous ECGs available Confirmed by Evan Baca ([id number]) on 10/16/2019 10:15:23 AM Referred By: REFERRED SELF Confirmed By:Evan Baca
--- NOTE | 2019-10-16 10:39 | Pharmacy Report ---
Pharmacy Abx Initial Consult - Date of Service October 16, 2019 - Pharmacy Dosing Scope Date of Consult: 10/15/19 Consultation requested by: Dr. Newsome Pharmacy is consulted to initiate Vancomycin + Cefepime IV dosing therapy, order appropriate labs and adjust drug dose/frequency. - Subjective The patient is a 84 year old F admitted on 10/15/19 23:43. - Objective Height: 5 ft Weight: 76.1 kg Vital Signs (Past 12hrs): Vital Signs Temp Pulse Pulse Resp BP BP Pulse Ox 10/16/19 08:00 73 10/16/19 07:06 36.5 C 75 20 109/47 L 95 10/16/19 03:56 36.6 C 78 24 102/44 L 94 10/16/19 01:46 84 10/16/19 00:31 36.8 C 82 20 99/40 L 100 10/16/19 00:10 95 H 24 99 10/16/19 00:01 94 H 25 H 99 10/16/19 00:00 87 25 H 89/41 L 99 10/15/19 23:50 97 H 26 H 99 10/15/19 23:40 97 H 27 H 100 10/15/19 23:31 108 H 27 H 100 10/15/19 23:30 112 H 22 95/53 L 99 10/15/19 23:29 99 H 28 H 93/43 L 100 10/15/19 23:20 110 H 23 100 10/15/19 23:10 37.4 C 100 H 24 99 10/15/19 23:01 105 H 25 H 99 10/15/19 23:00 114 H 24 89/38 L 99 10/15/19 22:50 95 H 25 H 99 10/15/19 22:40 100 H 28 H 99 Lab Results (24hrs): Laboratory Tests (24 Hours) 10/16/19 10/16/19 10/15/19 05:14 05:14 22:07 WBC 17.50 H Neut # (Auto) 12.75 H Creatinine 1.00 1.03 Est Cr Clr Drug Dosing 38.7 39.2 Procalcitonin 10/15/19 10/15/19 22:07 22:07 WBC 15.10 H Neut # (Auto) 12.15 H Creatinine Est Cr Clr Drug Dosing Procalcitonin 2.13 H Micro Results: 10/15/19 22:10 Urine Culture - Pending Urine,Clean Catch 10/15/19 22:00 Aerobic Blood Culture - Pending Blood Anaerobic Blood Culture - Pending 10/15/19 22:07 Aerobic Blood Culture - Pending Blood Anaerobic Blood Culture - Pending - Risk Factors for Resistance * Recently admitted for [facility] for multiple falls. - Assessment & Plan Assessment 84 year old F admitted from [facility] for fever. No positive COVID cases at [facility] per staff. Renal function appears to be at baseline. Nasal swab and flu swan negative Blood cx x2 pending Ucx pending Procal elevated Admitting physician notes RLE cellulitis on exam. Plan Vancomycin + Cefepime for treatment of sepsis 2/2 RLE cellulitis? Vancomycin IV * Patient meets criteria for vancomycin AUC dosing nomogram * AUC/KOBE is the preferred PK/PD target for vancomycin * Target AUC/KOBE = 400-600 * AUC guided dosing is effective and associated with decreased risk of nephrotoxicity Cefepime * Target dose 2gm q8h * For CrCl 30-60ml/min, 2gm Q12H Pharmacy will continue to follow and will adjust dose/frequency as necessary. Thank you.
[2019-10-16] MEDS: CEFEPIME 2,000 MG in SYRINGE 7.5 ML IV SCH ×2 (11:14→22:15)
[2019-10-16] MEDS ORDERED: VANCOMYCIN HCL 1,500 MG in SODIUM CHLORIDE 0.9% 500 ML IV SCH (23:00)
[2019-10-17] MEDS: ACETAMINOPHEN 325 MG TAB PO PRN (00:04)
[2019-10-17] MEDS: SODIUM CHLORIDE 0.9% 1000ML 1,000 ML IV SCH ×2 (05:15→15:19)
[2019-10-17 05:46] LABS: Basophils # (auto) 0.03 K/uL (0-0.2); Basophils % (auto) 0.3 %; Eosinophils # (auto) 0.22 K/uL (0-0.5); Eosinophils % (auto) 1.9 %; Hematocrit (blood only) 27.8 % (37-47); Hemoglobin 8.7 g/dL (12.0-16.0); Immature Granulocytes # (auto) 0.11 K/uL (0.00-0.02); Lymphocytes # (auto) 2.14 K/uL (1.2-3.4); Lymphocytes % (auto) 18.7 %; Mean Corpuscular Hemoglobin 31.6 pg (25-34); Mean Corpuscular Hgb Conc 31.3 g/dL (32-36); Mean Corpuscular Volume 101.1 fL (80-100); Mean Platelet Volume 10.3 fL (7.4-10.4); Monocytes # (auto) 1.79 K/uL (0.11-0.59); Monocytes % (auto) 15.7 %; Neutrophils # (auto) 7.14 K/uL (1.4-6.5); Neutrophils % (auto) 62.4 %; Platelet Count 222 K/uL (130-400); RDW Coefficient of Variation 14.6 % (11.5-14.5); RDW Standard Deviation 53.4 fL (36.4-46.3); Red Blood Count 2.75 M/uL (4.2-5.4); White Blood Count 11.43 K/uL (4.8-10.8)
[2019-10-17 06:16] LABS: Albumin Level 1.7 gm/dl (3.4-5.0); BUN Creatinine Ratio 25.2 (10-20); Calcium 8.6 mg/dl (8.5-10.1); Creatinine Clr Calc Pharmacy 40.6 ml/min; Est GFR (African American) 63.4; Est GFR (Non-African American) 54.7; Potassium 3.5 mmol/L (3.5-5.1)
[2019-10-17 06:19] LABS: Albumin Globulin Ratio 0.5 (0.9-2); Bilirubin,Total 0.6 mg/dl (0.2-1); Globulin 3.4 gm/dl (2.5-4.0); Total Protein 5.1 gm/dl (6.4-8.2)
--- NOTE | 2019-10-17 07:22 | Hospitalist Progress Note ---
Date of Service October 17, 2019 Assessment & Plan (1) Sepsis: (2) Cellulitis: (3) Tachycardia: (4) Fever: (5) Hypomagnesemia: (6) Dyslipidemia: (7) Hypertension: (8) Coronary artery disease: (9) Atrial fibrillation, chronic: (10) Severe aortic stenosis: ASSESSMENT AND PLAN: This is an 84-year-old female who presents with fever and found to be in sepsis secondary to right lower extremity cellulitis. 1. Gram neg Sepsis with bacteremia Gram Neg Bacilli, POA, Met criteria for sepsis with fever spike, tachycardia, elevated white count, elevated procalcitonin. Sepsis is secondary to lower extremity cellulitis. Received vancomycin and cefepime in the ER which we continued. Repeat Blood cultures until bacteria cleared. Received 1.5 L fluids in the ER. IVF 2. History of severe aortic stenosis, status post TAVR. History of idiopathic cardiomyopathy, on torsemide, which we will hold. We will also hold potassium supplements while torsemide is held. Getting fluids. We will monitor for any volume overload. 3. Chronic kidney disease stage III, presents with creatinine of 1. Monitor daily labs 4. Coronary artery disease, old [place], on aspirin, on Plavix, statin and Toprol- XL, currently stable. We will monitor. 5. History of paroxysmal atrial fibrillation, on digoxin and Toprol-XL. As per the records, she refused anticoagulation. 6. Hyperlipidemia, on statin. 7. History of unsteady gait, chronic lymphedema. The patient was sent to [facility] a couple of days ago because of frequent falls. 8. History of cerebrovascular accident, on aspirin and statin. 9. Generalized weakness. PT and OT when stable. 10. Deep venous thrombosis prophylaxis, on heparin subQ. I was notified by RN that this patient came from [facility] and another patient, on a different floor tested positive for Covid, The 2 patients in question shared 4 common caregivers. No cough, CXR clear. No covid testing needed, case d/w pulm/CC. DISPOSITION: Continue tele. PT and OT. Social service to help with discharge planning. Possible discharge back to [facility] when stable. labs checked ROS-No Headache, No Visual Changes, No Nausea, No Vomiting, No Fever, No Chills, No Neck Pain or Stiffness, No Chest Pain, No Palpitations, No SOB, No LIMON, No Cough, No Sputum, No Wheezing, No Abdominal Pain, No Diarrhea, No Hematemesis, No Hemoptysis, No Unexpected Weight Loss, No Flank pain, No Melena, No Hematochezia, No Frequency, No Urgency, No Burning, No Hematuria, No Rashes, No Diaphoresis. Appetite is Normal Physical Exam Gen-AAO x 3, NAD, Afebrile, +fever last night Head-NCAT, EOMI, PERRLA, Anicteric Sclera, No Posterior Pharyngeal Erythema Neck-Supple, No JVD, No Thyromegaly, No Masses, No LAD, No Bruits Lungs-Clear to Auscultation Bilaterally, No Rales, No Rhonchi, No Wheezing, No Crepitus Chest-No S4, +S1, +S2, No S3, No Murmurs, No Rubs, No Gallops, No Ectopy Abdomen-Soft, Bowel Sounds Present, Non Tender, Non Distended, No Hepatomegaly, No Splenomegaly, No Palpable Masses, No Rebound, No Rigidity, No Guarding Musculoskeletal-Full Range of Motion Bilaterally, No CVAT Extremities-No Cyanosis, No Clubbing, No Edema Nuero-Cranial Nerves II-XII grossly intact, Motor WNL, DTRs WNL, Strength WNL, Non Focal Psych-Normal Mood Admission and Anticipated Discharge Date Admission Date: October 15, 2019 Anticipated date of discharge: 10/18/19 Results & Data Results & Data ([facility]) Vital Signs (Past 12 Hours) Vital Signs Temp Pulse Pulse Resp BP Pulse Ox 10/17/19 07:09 36.6 C 80 24 139/61 96 10/17/19 03:14 37.5 C 83 20 117/48 L 94 10/17/19 00:32 37.3 C 10/17/19 00:00 91 H 10/16/19 23:22 37.7 C H 97 H 24 125/61 93 10/16/19 19:31 36.8 C 90 20 116/59 L 94 (1) Fever Fever type: unspecified Qualified Code(s): R50.9 - Fever, unspecified (2) Cellulitis Laterality: right Site of cellulitis: extremity Site of cellulitis of extremity: lower extremity Qualified Code(s): L03.115 - Cellulitis of right lower limb (3) Sepsis Sepsis acute organ dysfunction status: without acute organ dysfunction Sepsis type: sepsis due to unspecified organism Qualified Code(s): A41.9 - Sepsis, unspecified organism
[2019-10-17] MEDS: CLOPIDOGREL BISULFATE 75 MG TAB PO SCH (07:56)
[2019-10-17] MEDS: ATORVASTATIN 40 MG TAB PO SCH (07:56)
[2019-10-17] MEDS: CALCIUM 600MG + VIT D 400 IU TAB PO SCH ×2 (07:56→21:08)
[2019-10-17] MEDS: TORSEMIDE 20 MG TAB PO SCH (07:57)
[2019-10-17] MEDS: MIRABEGRON ER 25 MG TAB PO SCH (07:57)
[2019-10-17] MEDS: METOPROLOL SUCC 50MG EXT REL TAB PO SCH (07:57)
[2019-10-17] MEDS: CHOLECALCIFEROL 1,000 UNITS 25 MCG TAB PO SCH (07:57)
[2019-10-17] MEDS: HEPARIN SOD 5,000 UNIT/0.5 ML VIAL SQ SCH ×2 (07:57→21:08)
[2019-10-17] MEDS: ASPIRIN 81 MG ECTAB PO SCH (07:57)
[2019-10-17] MEDS: CEFEPIME 2,000 MG in SYRINGE 7.5 ML IV SCH ×2 (09:52→21:09)
[2019-10-17] MEDS: PSYLLIUM 58.6% POWDER PACKET PO SCH ×2 (11:41→21:09)
[2019-10-17] MEDS ORDERED: POLYETHYLENE (MIRALAX) 17 GM PACK PO PRN (13:58)
[2019-10-17] MEDS: POTASSIUM CHLORIDE 10 MEQ TABCR PO SCH (21:08)
[2019-10-18] MEDS: SODIUM CHLORIDE 0.9% 1000ML 1,000 ML IV SCH ×3 (01:15→21:10)
[2019-10-18] MEDS ORDERED: ALENDRONATE SODIUM 70 MG TAB PO SCH (06:00)
[2019-10-18 06:08] LABS: Basophils # (auto) 0.02 K/uL (0-0.2); Basophils % (auto) 0.2 %; Eosinophils # (auto) 0.19 K/uL (0-0.5); Eosinophils % (auto) 1.8 %; Hematocrit (blood only) 28.6 % (37-47); Immature Granulocytes # (auto) 0.09 K/uL (0.00-0.02); Immature Granulocytes % (auto) 0.9 %; Lymphocytes # (auto) 2.18 K/uL (1.2-3.4); Lymphocytes % (auto) 20.9 %; Mean Corpuscular Hemoglobin 31.5 pg (25-34); Mean Corpuscular Hgb Conc 31.5 g/dL (32-36); Mean Platelet Volume 10.5 fL (7.4-10.4); Monocytes # (auto) 1.62 K/uL (0.11-0.59); Monocytes % (auto) 15.5 %; Neutrophils # (auto) 6.34 K/uL (1.4-6.5); Neutrophils % (auto) 60.7 %; Platelet Count 229 K/uL (130-400); RDW Coefficient of Variation 14.5 % (11.5-14.5); RDW Standard Deviation 52.2 fL (36.4-46.3); Red Blood Count 2.86 M/uL (4.2-5.4); White Blood Count 10.44 K/uL (4.8-10.8)
[2019-10-18 06:45] LABS: Albumin Level 1.7 gm/dl (3.4-5.0); BUN Creatinine Ratio 22.7 (10-20); Bilirubin,Total 0.5 mg/dl (0.2-1); Calcium 8.7 mg/dl (8.5-10.1); Creatinine Clr Calc Pharmacy 46.1 ml/min; Est GFR (African American) 72.4; Est GFR (Non-African American) 62.5; Potassium 3.4 mmol/L (3.5-5.1)
[2019-10-18 06:46] LABS: Albumin Globulin Ratio 0.5 (0.9-2); Globulin 3.3 gm/dl (2.5-4.0)
--- NOTE | 2019-10-18 07:23 | Hospitalist Progress Note ---
Date of Service October 18, 2019 Assessment & Plan (1) Sepsis: (2) Cellulitis: (3) Tachycardia: (4) Fever: (5) Hypomagnesemia: (6) Dyslipidemia: (7) Hypertension: (8) Coronary artery disease: (9) Atrial fibrillation, chronic: (10) Severe aortic stenosis: ASSESSMENT AND PLAN: This is an 84-year-old female who presents with fever and found to be in sepsis secondary to right lower extremity cellulitis. 1. Gram neg Sepsis with bacteremia Gram Neg Bacilli-Pseudomonas, POA, Met criteria for sepsis with fever spike, tachycardia, elevated white count, elevated procalcitonin. Sepsis is secondary to lower extremity cellulitis. Received vancomycin and cefepime in the ER. Repeat Blood cultures until bacteria cleared. Received 1.5 L fluids in the ER. IVF 2. History of severe aortic stenosis, status post TAVR. History of idiopathic cardiomyopathy, on torsemide, which we will hold. We will also hold potassium supplements while torsemide is held. Getting fluids. We will monitor for any volume overload. 3. Chronic kidney disease stage III, presents with creatinine of 1. Monitor daily labs 4. Coronary artery disease, old [place], on aspirin, on Plavix, statin and Toprol- XL, currently stable. We will monitor. 5. History of paroxysmal atrial fibrillation, on digoxin and Toprol-XL. As per the records, she refused anticoagulation. 6. Hyperlipidemia, on statin. 7. History of unsteady gait, chronic lymphedema. The patient was sent to [facility] a couple of days ago because of frequent falls. 8. History of cerebrovascular accident, on aspirin and statin. 9. Generalized weakness. PT and OT when stable. 10. Deep venous thrombosis prophylaxis, on heparin subQ. I was notified by RN that this patient came from [facility] and another patient, on a different floor tested positive for Covid, The 2 patients in question shared 4 common caregivers. No cough, CXR clear. No covid testing needed, case d/w pulm/CC. DISPOSITION: Continue tele. PT and OT. Social service to help with discharge planning. Discharge back to [facility] if recent blood cultures are negative. WBCs are now normal. DC on Cipro labs checked ROS-No Headache, No Visual Changes, No Nausea, No Vomiting, No Fever, No Chills, No Neck Pain or Stiffness, No Chest Pain, No Palpitations, No SOB, No LIMON, No Cough, No Sputum, No Wheezing, No Abdominal Pain, No Diarrhea, No Hematemesis, No Hemoptysis, No Unexpected Weight Loss, No Flank pain, No Melena, No Hematochezia, No Frequency, No Urgency, No Burning, No Hematuria, No Rashes, No Diaphoresis. Appetite is Normal Physical Exam Gen-AAO x 3, NAD, Afebrile Head-NCAT, EOMI, PERRLA, Anicteric Sclera, No Posterior Pharyngeal Erythema Neck-Supple, No JVD, No Thyromegaly, No Masses, No LAD, No Bruits Lungs-Clear to Auscultation Bilaterally, No Rales, No Rhonchi, No Wheezing, No Crepitus Chest-No S4, +S1, +S2, No S3, No Murmurs, No Rubs, No Gallops, No Ectopy Abdomen-Soft, Bowel Sounds Present, Non Tender, Non Distended, No Hepatomegaly, No Splenomegaly, No Palpable Masses, No Rebound, No Rigidity, No Guarding Musculoskeletal-Full Range of Motion Bilaterally, No CVAT Extremities-No Cyanosis, No Clubbing, No Edema Nuero-Cranial Nerves II-XII grossly intact, Motor WNL, DTRs WNL, Strength WNL, Non Focal Psych-Normal Mood Admission and Anticipated Discharge Date Admission Date: October 15, 2019 Anticipated date of discharge: 10/18/19 Results & Data Results & Data ([facility]) Vital Signs (Past 12 Hours) Vital Signs Temp Pulse Pulse Resp BP Pulse Ox 10/18/19 03:41 36.7 C 85 18 124/76 97 10/18/19 00:52 88 10/17/19 22:59 36.8 C 86 18 128/71 94 10/17/19 19:39 36.9 C 74 20 119/78 99 (1) Fever Fever type: unspecified Qualified Code(s): R50.9 - Fever, unspecified (2) Cellulitis Laterality: right Site of cellulitis: extremity Site of cellulitis of extremity: lower extremity Qualified Code(s): L03.115 - Cellulitis of right lower limb (3) Sepsis Sepsis acute organ dysfunction status: without acute organ dysfunction Sepsis type: sepsis due to unspecified organism Qualified Code(s): A41.9 - Sepsis, unspecified organism
[2019-10-18] MEDS: METOPROLOL SUCC 50MG EXT REL TAB PO SCH (08:33)
[2019-10-18] MEDS: TORSEMIDE 20 MG TAB PO SCH (08:33)
[2019-10-18] MEDS: POTASSIUM CHLORIDE 10 MEQ TABCR PO SCH ×2 (08:33→21:10)
[2019-10-18] MEDS: CALCIUM 600MG + VIT D 400 IU TAB PO SCH ×2 (08:33→21:11)
[2019-10-18] MEDS: ASPIRIN 81 MG ECTAB PO SCH (08:33)
[2019-10-18] MEDS: CLOPIDOGREL BISULFATE 75 MG TAB PO SCH (08:33)
[2019-10-18] MEDS: ATORVASTATIN 40 MG TAB PO SCH (08:33)
[2019-10-18] MEDS: CHOLECALCIFEROL 1,000 UNITS 25 MCG TAB PO SCH (08:33)
[2019-10-18] MEDS: MIRABEGRON ER 25 MG TAB PO SCH (08:33)
[2019-10-18] MEDS: HEPARIN SOD 5,000 UNIT/0.5 ML VIAL SQ SCH (08:34)
[2019-10-18] MEDS: PSYLLIUM 58.6% POWDER PACKET PO SCH ×2 (08:34→21:11)
[2019-10-18] MEDS: CEFEPIME 2,000 MG in SYRINGE 7.5 ML IV SCH ×2 (10:34→21:11)
[2019-10-18] MEDS: DIGOXIN 0.125 MG TAB PO SCH (16:20)
[2019-10-19 06:06] LABS: Hematocrit (blood only) 29.6 % (37-47); Mean Corpuscular Hemoglobin 30.6 pg (25-34); Mean Corpuscular Hgb Conc 30.4 g/dL (32-36); Mean Corpuscular Volume 100.7 fL (80-100); Platelet Count 233 K/uL (130-400); RDW Coefficient of Variation 14.6 % (11.5-14.5); RDW Standard Deviation 53.2 fL (36.4-46.3); Red Blood Count 2.94 M/uL (4.2-5.4); White Blood Count 12.89 K/uL (4.8-10.8)
[2019-10-19] MEDS: ACETAMINOPHEN 325 MG TAB PO PRN (06:29)
[2019-10-19] MEDS: SODIUM CHLORIDE 0.9% 1000ML 1,000 ML IV SCH ×2 (06:32→15:53)
[2019-10-19 06:46] LABS: BUN Creatinine Ratio 21.5 (10-20); Calcium 8.4 mg/dl (8.5-10.1); Creatinine Clr Calc Pharmacy 50.7 ml/min; Est GFR (African American) 80.2; Est GFR (Non-African American) 69.2; Potassium 3.2 mmol/L (3.5-5.1)
[2019-10-19] MEDS: CHOLECALCIFEROL 1,000 UNITS 25 MCG TAB PO SCH (07:56)
[2019-10-19] MEDS: TORSEMIDE 20 MG TAB PO SCH (07:56)
[2019-10-19] MEDS: PSYLLIUM 58.6% POWDER PACKET PO SCH ×3 (07:56→20:06)
[2019-10-19] MEDS: METOPROLOL SUCC 50MG EXT REL TAB PO SCH (07:56)
[2019-10-19] MEDS: ASPIRIN 81 MG ECTAB PO SCH (07:56)
[2019-10-19] MEDS: CALCIUM 600MG + VIT D 400 IU TAB PO SCH ×2 (07:56→20:05)
[2019-10-19] MEDS: MIRABEGRON ER 25 MG TAB PO SCH (07:56)
[2019-10-19] MEDS: POTASSIUM CHLORIDE 10 MEQ TABCR PO SCH ×2 (07:56→20:05)
[2019-10-19] MEDS: ATORVASTATIN 40 MG TAB PO SCH (07:56)
[2019-10-19] MEDS: CLOPIDOGREL BISULFATE 75 MG TAB PO SCH (07:56)
[2019-10-19] MEDS: CEFEPIME 2,000 MG in SYRINGE 7.5 ML IV SCH ×2 (09:50→22:06)
[2019-10-19] MEDS ORDERED: POTASSIUM CHLORIDE 20 MEQ TABCR PO STA (10:23)
--- NOTE | 2019-10-19 11:26 | Hospitalist Progress Note ---
Date of Service October 19, 2019 Assessment & Plan (1) Sepsis: Presented with sepsis on admission Secondary to lower extremity cellulitis Blood culture grew gram-negative bacilliPseudomonas Received vancomycin and now on oral Cipro Clinically better and repeat blood cultures are negative Will be discharged today with oral Cipro for 10 more days Generalized weakness Has significant bilateral lymphedema which makes it difficult to ambulate Her generalized weakness secondary to sepsis is been complicating her mobility Has been getting PT and OT while in the hospital We will need to continue physical therapy at [facility] on discharge (2) Cellulitis: As above (3) Coronary artery disease: Denies any acute symptoms (4) Atrial fibrillation, chronic: Heart rate is controlled (5) Severe aortic stenosis: Status post TAVR, history of idiopathic cardiomyopathy We will continue current medications (6) Hypertension: Blood pressure is controlled (7) Lymphedema of both lower extremities: Has severe lymphedema involving both lower extremities Likely the cause for ambulatory dysfunction and complicated by recent infection and sepsis Has been getting PT and OT Will need continued physical therapy She will be going to [facility] this afternoon Keep your follow-up appointment with lymphedema clinic All other significant medical conditions remained stable Discussed with the her sister and updated about her current condition Admission and Anticipated Discharge Date Admission Date: October 15, 2019 Anticipated date of discharge: 10/19/19 Subjective The patient was seen and examined in medical telemetry unit She has been feeling a lot better Complains to have extreme weakness and tiredness He did pretty well with physical therapy as of today Not on COVID-19:-Not suspected From previous hospitalist- I was notified by RN that this patient came from [facility] and another patient, on a different floor tested positive for Covid, The 2 patients in question shared 4 common caregivers. No cough, CXR clear. No covid testing needed, case d/w pulm/CC. Review of Systems Review of Systems: All systems reviewed and are unremarkable except as noted below Musculoskeletal: Extensive bilateral lymphedema Neurologic: + generalized weakness Bilateral weak legs Physical Exam Physical Exam: Sitting on a chair without any acute distress Constitutional: well developed, well nourished and + obese Eyes: PERRL, conjunctivae normal, anicteric sclerae ENMT: external ear and nose normal, oropharynx normal Neck: trachea midline, no thyromegaly Respiratory: normal respiratory effort Auscultation: + diminished lung sounds and + crackles (Minimal bibasilar crackles); no wheezes Cardiovascular: Rate/Rhythm: regular rate and regular rhythm Heart Sounds: no murmur Gastrointestinal (Abdomen): Inspection/Auscultation: + abdomen distended and normal bowel sounds Percussion/Palpation: abdomen soft; abdomen nontender Musculoskeletal: No acute arthritis in any joints Has extensive bilateral lymphedema Lymphatic: Extensive bilateral lymphedema Results & Data Results & Data ([facility]) Vital Signs (Past 12 Hours) Vital Signs Temp Pulse Pulse Resp BP Pulse Ox 10/19/19 08:00 91 H 10/19/19 07:06 36.8 C 93 H 20 104/63 94 10/19/19 04:25 36.8 C 76 18 125/74 98 10/19/19 00:22 36.5 C 76 18 116/67 98 Laboratory Results Short CBC 10/19/19 Range/Units 05:42 WBC 12.89 H (4.8-10.8) K/uL Hgb 9.0 L (12.0-16.0) g/dL Hct 29.6 L (37-47) % Plt Count 233 (130-400) K/uL BMP 10/19/19 05:42 Sodium 141 Potassium 3.2 L Chloride 107 Carbon Dioxide 31 BUN 17 Creatinine 0.79 Glucose 113 H Calcium 8.4 L Medications Administered Current Inpatient Medications Acetaminophen (Tylenol) 650 mg PO Q4H PRN PRN Reason: Pain or Fever Stop: 11/15/19 00:51 Last Admin: 10/19/19 06:29 Dose: 650 mg Documented by: Albuterol (Ventolin Hfa) 2 puffs INH Q6 PRN PRN Reason: Wheezing Stop: 11/15/19 00:51 Alendronate Sodium (Fosamax) 70 mg PO Mo@0600 [facility] Stop: 11/17/19 05:59 Last Admin: 10/18/19 05:56 Dose: 70 mg Documented by: Aspirin (Ecotrin Ectab) 81 mg PO DAILY [facility] Stop: 11/15/19 08:59 Last Admin: 10/19/19 07:56 Dose: 81 mg Documented by: Atorvastatin Calcium (Lipitor) 40 mg PO DAILY [facility] Stop: 11/15/19 08:59 Last Admin: 10/19/19 07:56 Dose: 40 mg Documented by: Bisacodyl (Dulcolax) 10 mg MD DAILY PRN PRN Reason: Constipation Stop: 11/15/19 00:51 Clopidogrel Bisulfate (Plavix) 75 mg PO DAILY [facility] Stop: 11/15/19 08:59 Last Admin: 10/19/19 07:56 Dose: 75 mg Documented by: Digoxin (Lanoxin) 0.125 mg PO MoWeFr@1600 [facility] Stop: 11/15/19 00:51 Last Admin: 10/18/19 16:20 Dose: 0.125 mg Documented by: Docusate Sodium (Colace) 100 mg PO BID PRN PRN Reason: Constipation Stop: 11/15/19 00:51 Heparin Sodium (Porcine) (Heparin Sodium (Porcine)) 5,000 units SQ Q12H [facility] Stop: 11/15/19 08:59 Last Admin: 10/18/19 08:34 Dose: 5,000 units Documented by: Sodium Chloride (Nss 1000ml) 1,000 mls @ 100 mls/hr IV .Q10H [facility] Stop: 11/15/19 00:51 Last Admin: 10/19/19 06:32 Dose: 100 mls/hr Documented by: Cefepime HCl 2,000 mg/ Syringe 20 mls @ 5.5 mls/min IV Q12H [facility]; Protocol Stop: 10/23/19 09:59 Last Admin: 10/19/19 09:50 Dose: 5.5 mls/min Documented by: Metoprolol Succinate (Toprol Xl) 200 mg PO DAILY [facility] Stop: 11/15/19 08:59 Last Admin: 10/19/19 07:56 Dose: 200 mg Documented by: Mirabegron (Myrbetriq Er) 25 mg PO DAILY [facility] Stop: 11/15/19 08:59 Last Admin: 10/19/19 07:56 Dose: 25 mg Documented by: Miscellaneous Information (Cefepime Consult Active) 1 ea N/A UD PRN PRN Reason: Consult Stop: 11/15/19 01:09 Multivitamins/Minerals (Caltrate Plus) 1 tab PO BID [facility] Stop: 11/15/19 08:59 Last Admin: 10/19/19 07:56 Dose: 1 tab Documented by: Nitroglycerin (Nitrostat) 0.4 mg SL UD PRN PRN Reason: Chest Pain Stop: 11/15/19 00:51 Ondansetron HCl (Zofran) 4 mg IV Q6H PRN PRN Reason: Nausea Stop: 11/15/19 00:51 Polyethylene Glycol (Miralax Powder Packet) 17 gm PO DAILY PRN PRN Reason: Constipation Stop: 11/15/19 00:51 Polyethylene Glycol (Miralax Powder Packet) 17 gm PO DAILY@1200 PRN PRN Reason: Constipation Stop: 11/16/19 13:57 Potassium Chloride (Klor-Con M10) 10 meq PO BID [facility] Stop: 11/16/19 20:59 Last Admin: 10/19/19 07:56 Dose: 10 meq Documented by: Psyllium Hydrophilic Mucilloid (Metamucil) 1 pkt PO BID [facility] Stop: 11/15/19 08:59 Last Admin: 10/19/19 07:58 Dose: Not Given Documented by: Torsemide (Demadex) 20 mg PO DAILY [facility] Stop: 11/15/19 08:59 Last Admin: 10/19/19 07:56 Dose: 20 mg Documented by: Vitamin D (Vitamin D3) 1,000 units PO DAILY [facility] Stop: 11/15/19 08:59 Last Admin: 10/19/19 07:56 Dose: 1,000 units Documented by: (1) Sepsis Sepsis acute organ dysfunction status: without acute organ dysfunction Sepsis type: sepsis due to unspecified organism Qualified Code(s): A41.9 - Sepsis, unspecified organism (2) Cellulitis Laterality: right Site of cellulitis: extremity Site of cellulitis of extremity: lower extremity Qualified Code(s): L03.115 - Cellulitis of right lower limb
[2019-10-19] MEDS ORDERED: MAGNESIUM SULFATE / D5W 1 GM/100 ML BAG IV ONE (13:41)
[2019-10-19] MEDS ORDERED: POTASSIUM ACETATE 10 MEQ in 0.9 % SODIUM CHLORIDE 100 ML IV STA (13:41)
[2019-10-19] MEDS ORDERED: POTASSIUM CHLORIDE / WTR 10 MEQ/100 ML PLCT IV STA (13:46)
[2019-10-19] MEDS: POTASSIUM CHLORIDE / WTR 10 MEQ/100 ML PLCT IV SCH ×2 (14:05→15:19)
[2019-10-20] MEDS: SODIUM CHLORIDE 0.9% 1000ML 1,000 ML IV SCH (01:58)
[2019-10-20] MEDS: POTASSIUM CHLORIDE 10 MEQ TABCR PO SCH ×2 (08:09→21:32)
[2019-10-20] MEDS: CALCIUM 600MG + VIT D 400 IU TAB PO SCH ×2 (08:09→21:31)
[2019-10-20] MEDS: ASPIRIN 81 MG ECTAB PO SCH (08:09)
[2019-10-20] MEDS: PSYLLIUM 58.6% POWDER PACKET PO SCH ×2 (08:10→21:32)
[2019-10-20] MEDS: CHOLECALCIFEROL 1,000 UNITS 25 MCG TAB PO SCH (08:10)
[2019-10-20] MEDS: ATORVASTATIN 40 MG TAB PO SCH (08:10)
[2019-10-20] MEDS: METOPROLOL SUCC 50MG EXT REL TAB PO SCH (08:10)
[2019-10-20] MEDS: TORSEMIDE 20 MG TAB PO SCH (08:10)
[2019-10-20] MEDS: MIRABEGRON ER 25 MG TAB PO SCH (08:10)
[2019-10-20] MEDS: CLOPIDOGREL BISULFATE 75 MG TAB PO SCH (08:11)
[2019-10-20 10:23] LABS: BUN Creatinine Ratio 18.8 (10-20); Calcium 9.2 mg/dl (8.5-10.1); Creatinine Clr Calc Pharmacy 38.6 ml/min; Est GFR (African American) 58.2; Est GFR (Non-African American) 50.2; Magnesium 1.8 mg/dl (1.8-2.4); Potassium 3.8 mmol/L (3.5-5.1)
[2019-10-20] MEDS: CEFEPIME 2,000 MG in SYRINGE 7.5 ML IV SCH ×2 (10:39→21:32)
[2019-10-20 13:25] LABS: Basophils # (auto) 0.04 K/uL (0-0.2); Basophils % (auto) 0.4 %; Eosinophils # (auto) 0.24 K/uL (0-0.5); Eosinophils % (auto) 2.2 %; Hematocrit (blood only) 30.8 % (37-47); Hemoglobin 9.5 g/dL (12.0-16.0); Immature Granulocytes # (auto) 0.08 K/uL (0.00-0.02); Immature Granulocytes % (auto) 0.7 %; Lymphocytes # (auto) 2.08 K/uL (1.2-3.4); Mean Corpuscular Hemoglobin 31.3 pg (25-34); Mean Corpuscular Hgb Conc 30.8 g/dL (32-36); Mean Corpuscular Volume 101.3 fL (80-100); Mean Platelet Volume 9.8 fL (7.4-10.4); Monocytes # (auto) 0.99 K/uL (0.11-0.59); Neutrophils # (auto) 7.54 K/uL (1.4-6.5); Neutrophils % (auto) 68.7 %; Platelet Count 225 K/uL (130-400); RDW Coefficient of Variation 14.9 % (11.5-14.5); RDW Standard Deviation 54.4 fL (36.4-46.3); Red Blood Count 3.04 M/uL (4.2-5.4); White Blood Count 10.97 K/uL (4.8-10.8)
--- NOTE | 2019-10-20 13:41 | Infectious Disease Consult ---
Date of Consultation October 20, 2019 Assessment & Plan (1) Gram negative sepsis: agree with current abx, would give 14 days from first negative blood culture, 4/5 cultures negative to date. can change to po cipro upon d/c to complete course (2) Lymphedema of both lower extremities: (3) Cellulitis: History of Present Illness Attending Physician: Tyrone Brower MD pt admitted from sn[facility] due to fever, was having falls at home. tmax in ER 37.7, afebrile since. wbc as high as 17, improved to 12. creat 1. Blood cultures in ER gowing car sensitive pseudomonas. Flu negative. on cefepime, tolerating well. repeat blood cultures 45 negative. was to be d/c yesterday, now C. diff pending. ID consulted for + blood cultures and cellulitis. pt is comfortable on my exam. Allergies Allergy/AdvReac Type Severity Reaction Status Date / Time aspirin Allergy Unknown Verified 10/15/19 22:34 milk Allergy Unknown Verified 10/15/19 22:34 Home Medications Home Medications Medication Instructions Recorded Confirmed Type Tylenol 650 mg PO Q4 PRN 10/15/19 10/15/19 History albuterol sulfate 2 inh INHALATION Q6 PRN 10/15/19 10/15/19 History alendronate 70 mg PO WK 10/15/19 10/15/19 History aspirin [Aspir-81] 81 mg PO DAILY 10/15/19 10/15/19 History atorvastatin 40 mg PO DAILY 10/15/19 10/15/19 History bisacodyl 10 mg [place] DAILY PRN 10/15/19 10/15/19 History calcium carbonate-vitamin D3 1 tab PO BID 10/15/19 10/15/19 History [Calcium 500 + D] cholecalciferol (vitamin D3) 1,000 unit PO DAILY 10/15/19 10/15/19 History [Vitamin D3] clopidogrel [Plavix] 75 mg PO DAILY 10/15/19 10/15/19 History digoxin [Digox] 125 mcg PO MOWEFR 10/15/19 10/15/19 History docusate sodium 100 mg PO BID PRN 10/15/19 10/15/19 History heparin (porcine) 5,000 unit SUBCUT Q12H 10/15/19 10/15/19 History melatonin 3 mg PO HS PRN 10/15/19 10/15/19 History metoprolol succinate 200 mg PO DAILY 10/15/19 10/15/19 History mirabegron [Myrbetriq] 25 mg PO DAILY 10/15/19 10/15/19 History polyethylene glycol 3350 [Miralax] 17 g PO DAILY PRN 10/15/19 10/15/19 History potassium chloride 10 meq PO BID 10/15/19 10/15/19 History torsemide 20 mg PO DAILY 10/15/19 10/15/19 History wheat dextrin [Benefiber Sugar 8 g PO BID 10/15/19 10/15/19 History Free (dextrin)] Lactobacillus acidoph-L.bulgar 1 tab PO BID #30 tab 10/19/19 Rx [Lactinex] ciprofloxacin HCl 750 mg PO BID #20 tab 10/19/19 Rx Patient History Medical History Atrial fibrillation, chronic Coronary artery disease Dyslipidemia Hypertension Severe aortic stenosis Social History Preferred Language: Taiwanese Communication Ability: Effective 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 Beliefs That Will Affect Care: None Current Living Situation: Family Feels Safe at Home: Yes Safety Concerns: Feels Safe At This Time Smoking Status: Unknown if ever smoked Hx Alcohol Use: No Hx Substance Use: No Review of Systems Review of Systems: All systems reviewed & are unremarkable except as noted in HPI & below Physical Exam Constitutional: WD/WN, vitals as above Eyes: PERRL, conjunctivae normal, anicteric sclerae ENMT: external ear and nose normal, oropharynx normal Neck: normal visual inspection Respiratory: normal respiratory effort, lungs clear to auscultation Cardiovascular: Rate/Rhythm: regular rate Extremities: + pedal edema b/l lymphedema Gastrointestinal (Abdomen): Inspection/Auscultation: abdomen normal to inspection Musculoskeletal: Head/Neck/Chest: normocephalic and head atraumatic Skin: no rashes, warm and dry + erythema (rle ant calf) Results & Data ([facility]) Vital Signs (Past 12 Hours) Vital Signs Temp Pulse Pulse Resp BP BP Pulse Ox 10/20/19 11:25 36.6 C 67 20 104/64 94 04/08/20 11:21 82 10/20/19 07:35 36.3 C L 85 20 122/74 95 10/20/19 03:08 36.8 C 94 H 19 138/80 95 Laboratory Results Microbiology 10/15/19 22:10 Urine,Clean Catch Urine Culture - Final Gamma hemolytic strep.species 10/17/19 07:42 Blood Aerobic Blood Culture - Preliminary No growth in Aerobic bottle after 48 hours. 10/17/19 07:42 Blood Anaerobic Blood Culture - Preliminary No growth in Anaerobic bottle after 48 hours. 10/17/19 07:31 Blood Aerobic Blood Culture - Preliminary No growth in Aerobic bottle after 48 hours. 10/17/19 07:31 Blood Anaerobic Blood Culture - Preliminary No growth in Anaerobic bottle after 48 hours. 10/15/19 22:07 Blood Aerobic Blood Culture - Preliminary Pseudomonas aeruginosa 10/15/19 22:07 Blood Anaerobic Blood Culture - Preliminary No growth in Anaerobic bottle after 48 hours. 10/15/19 22:00 Blood Aerobic Blood Culture - Preliminary Pseudomonas aeruginosa 10/15/19 22:00 Blood Anaerobic Blood Culture - Preliminary No growth in Anaerobic bottle after 48 hours. PG Care Time/CCT Total # of Minutes Spent Total Time Spent with Patient: Total time spent is greater than 50% in coordination of care (as documented) at patient's floor/unit and/or counseling patient: Coding Level of Care Code 44171 Inpt Consult Level 4 Diagnoses Gram negative sepsis A41.50 Lymphedema of both lower extremities I89.0 Cellulitis L03.115 Laterality: right Site of cellulitis: extremity Site of cellulitis of extremity: lower extremity (1) Cellulitis Laterality: right Site of cellulitis: extremity Site of cellulitis of extremity: lower extremity Qualified Code(s): L03.115 - Cellulitis of right lower limb
[2019-10-20 13:53] LABS: BUN Creatinine Ratio 18.7 (10-20); Calcium 9.1 mg/dl (8.5-10.1); Creatinine Clr Calc Pharmacy 36.5 ml/min; Est GFR (African American) 54.4; Est GFR (Non-African American) 46.9
--- NOTE | 2019-10-20 15:02 | Electrocardiogram Report ---
Test Reason : Blood Pressure : / mmHG Vent. Rate : 079 BPM Atrial Rate : 084 BPM P-R Int : 000 ms QRS Dur : 074 ms QT Int : 352 ms P-R-T Axes : 000 080 244 degrees QTc Int : 403 ms Atrial fibrillation Low voltage QRS Cannot rule out Anteroseptal infarct (cited on or before 15-OCT-2019) Abnormal ECG When compared with ECG of 19-OCT-2019 13:49, (unconfirmed) Nonspecific T wave abnormality no longer evident in Lateral leads Confirmed by Carlos Sue ([id number]) on 10/20/2019 3:01:32 PM Referred By: REFERRED SELF Confirmed By:Carlos Sue
[2019-10-20] MEDS: DIGOXIN 0.125 MG TAB PO SCH (16:00)
--- NOTE | 2019-10-20 17:39 | Ultrasound Report ---
ULTRASOUND RIGHT GROIN VASCULAR CLINICAL HISTORY: Right inguinal hematoma. Cardiac catheterization 2 months previously. COMPARISON STUDY: No priors. FINDINGS: Real-time, grayscale, and color Doppler sonography of the right groin is performed. There i s a complex nonvascular fluid collection the right groin which measures 3.3 x 1.0 x 1.3 cm. The appea tammie suggests hematoma. The right common femoral artery is patent with normal arterial waveforms. A small pseudoaneurysm with to-and-fro vascular flow is identified in the right groin and measures up t o 2.8 cm. The neck measures approximately 1 cm, and this is located immediately adjacent to the small hematoma. Benign-appearing right inguinal lymph nodes are incidentally noted. IMPRESSION: 1. There is a small pseudoaneurysm identified in the right groin as above. 2. An additional complex nonvascular fluid collection is seen in the right groin adjacent to the pseu doaneurysm, typical in appearance for a hematoma. Dictated: 10/20/2019 4:55 PM Transcribed: 10/20/2019 5:33 PM Sridevi [id number] [email or web address] Electronically signed by: Romaine Castelan M.D. 10/20/2019 5:38 PM
[2019-10-21] MEDS: ACETAMINOPHEN 325 MG TAB PO PRN (01:07)
[2019-10-21 06:53] LABS: Basophils # (auto) 0.04 K/uL (0-0.2); Basophils % (auto) 0.4 %; Eosinophils # (auto) 0.22 K/uL (0-0.5); Eosinophils % (auto) 2.2 %; Hematocrit (blood only) 28.9 % (37-47); Lymphocytes # (auto) 2.33 K/uL (1.2-3.4); Lymphocytes % (auto) 22.8 %; Mean Corpuscular Hemoglobin 31.6 pg (25-34); Mean Corpuscular Hgb Conc 31.1 g/dL (32-36); Mean Corpuscular Volume 101.4 fL (80-100); Mean Platelet Volume 10.3 fL (7.4-10.4); Monocytes # (auto) 1.13 K/uL (0.11-0.59); Monocytes % (auto) 11.1 %; Neutrophils # (auto) 6.38 K/uL (1.4-6.5); Neutrophils % (auto) 62.5 %; Platelet Count 226 K/uL (130-400); RDW Standard Deviation 54.2 fL (36.4-46.3); Red Blood Count 2.85 M/uL (4.2-5.4)
[2019-10-21] MEDS: PSYLLIUM 58.6% POWDER PACKET PO SCH (08:14)
[2019-10-21] MEDS: MIRABEGRON ER 25 MG TAB PO SCH (08:14)
[2019-10-21] MEDS: TORSEMIDE 20 MG TAB PO SCH (08:14)
[2019-10-21] MEDS: CALCIUM 600MG + VIT D 400 IU TAB PO SCH (08:14)
[2019-10-21] MEDS: CHOLECALCIFEROL 1,000 UNITS 25 MCG TAB PO SCH (08:15)
[2019-10-21] MEDS: POTASSIUM CHLORIDE 10 MEQ TABCR PO SCH (08:16)
[2019-10-21] MEDS: METOPROLOL SUCC 50MG EXT REL TAB PO SCH (08:16)
[2019-10-21] MEDS: ATORVASTATIN 40 MG TAB PO SCH (08:16)
--- NOTE | 2019-10-21 10:41 | Electrocardiogram Report ---
Test Reason : Blood Pressure : / mmHG Vent. Rate : 073 BPM Atrial Rate : 227 BPM P-R Int : 000 ms QRS Dur : 068 ms QT Int : 320 ms P-R-T Axes : 000 083 243 degrees QTc Int : 352 ms Atrial fibrillation Low voltage QRS Septal infarct (cited on or before 15-OCT-2019) Abnormal ECG When compared with ECG of 19-OCT-2019 13:51, (unconfirmed) T wave inversion now evident in Lateral leads QT has shortened Confirmed by Carlos Sue ([id number]) on 10/21/2019 10:41:07 AM Referred By: REFERRED SELF Confirmed By:Carlos Sue
[2019-10-21] MEDS: CEFEPIME 2,000 MG in SYRINGE 7.5 ML IV SCH (11:00)
--- NOTE | 2019-10-21 11:11 | Hospitalist Progress Note ---
Date of Service October 21, 2019 Assessment & Plan (1) Sepsis: Secondary to lower extremity cellulitis, Pseudomonas bacteremia -- blood cultures 10/15/19: (+) Pseudomonas -- given Vanco and Cefepime then transitioned to Cefepime only -- repeat blood cultures 10/17/19: negative after 48 hours clinically improved, afebrile -- ID consulted recommend Cipro x 10 more days (to complete 14 day antibiotic course since negative blood culture taken 10/17/19 Generalized weakness multifactorial: sepsis, cellulitis, bacteremia, chronic bilateral lower extremity lymphedema continue PT/OT fall precautions Diarrhea stool not tested as specimen was "formed" patient reports she normally has 2 soft, loose BMs per day (2) Cellulitis: As above (3) Coronary artery disease: no cardiac symptoms (4) Atrial fibrillation, chronic: (+) non sustained v tach noted has history of wide complex tachycarida in the past likely from hypokalemia- given PO K monitor continue usual Metoprolol and Digoxin (5) Severe aortic stenosis: Status post TAVR, history of idiopathic cardiomyopathy -- (+) minimal bleeding from right groin, insertion site for TAVR -- Right groin vascular US: 1. There is a small pseudoaneurysm identified in the right groin as above. 2. An additional complex nonvascular fluid collection is seen in the right groin adjacent to the pseudoaneurysm, typical in appearance for a hematoma. -- will consult vascular surgery for recommendation (6) Hypertension: Blood pressure is controlled (7) Lymphedema of both lower extremities: Has severe lymphedema involving both lower extremities Likely the cause for ambulatory dysfunction and complicated by recent infection and sepsis Has been getting PT and OT Will need continued physical therapy She will be going to [facility] this afternoon Keep your follow-up appointment with lymphedema clinic All other significant medical conditions remained stable Discussed with the her sister and updated about her current condition Admission and Anticipated Discharge Date Admission Date: October 15, 2019 Anticipated date of discharge: 10/19/19 Subjective ff up for cellulitis, pseudomonas bacteremia, etc. seen resting in bed, sitting up not in distress, comfortable, somewhat weak states she feels "rotten", when clarified, states she feel tired denies leg pain, fever/chills had 2 loose BMs, chronic as per patient, denies abdominal pain ,nausea had 6 beat run of vtach this AM, asymptomatic no chest pain, palpitations, dyspnea noted to have small amount of blood oozing from right groin patient denies groin pain no other symptoms Review of Systems Review of Systems: All systems reviewed & are unremarkable except as noted in HPI & below Physical Exam Physical Exam: General- oriented x 3, not in distress, speaks in sentences with no effort or accessory muscle use Head- atraumatic Eyes- PERRL, EOMI, anicteric ENT- oropharynx clear Neck- supple, no JVD, no adenopathy, no thyromegaly; carotids +2/2, no bruits appreciated Lungs- clear to auscultation bilaterally, no rales/wheezes Heart- normal rate, irregularly irregular rhythm; no murmur, no gallop, no rub appreciated Abdomen- normal bowel sounds, nondistended, soft, nontender, no masses or hepatosplenomegaly Right groin- small wound (<1cm) likely insertion site of TAVR: no active bleeding, (+) induration underneath around 3cm, no tenderness/warmth Extremities- (+) significant lymphedema: minimal erythema right distal anterior region , no warmth/tenderness, no calf tenderness; peripheral pulses intact Neuro- alert, oriented x 3; CN 2-12 grossly intact; motor 5/5 bilaterally;sensation 100% on all extremities; no other gross focal neurologic deficits Skin- warm & dry Results & Data Results & Data ([facility]) Vital Signs (Past 12 Hours) Vital Signs Temp Pulse Resp BP Pulse Ox 10/21/19 08:05 36.4 C L 71 19 102/57 L 95 10/21/19 04:00 36.7 C 77 20 119/72 95 (1) Cellulitis Laterality: right Site of cellulitis: extremity Site of cellulitis of extremity: lower extremity Qualified Code(s): L03.115 - Cellulitis of right lower limb (2) Sepsis Sepsis acute organ dysfunction status: without acute organ dysfunction Sepsis type: sepsis due to unspecified organism Qualified Code(s): A41.9 - Sepsis, unspecified organism
--- NOTE | 2019-10-21 11:53 | Consultation ---
Date of Consultation October 21, 2019 Assessment & Plan (1) Pseudoaneurysm: This is a 4-year-old female who has developed a pseudoaneurysm in her right common femoral artery. This is most likely from the 14 Sami sheath which was inserted for her TAVR procedure. There is a small surrounding h ematoma in the area. There is no overlying erythema or drainage of the groin. The neck of the aneurysm appears to be 1 cm in size making it a poor candidate for endovascular thrombosing of the aneurysm. We do recommend to have this repaired. I would like to wait until she is completes her treatment for her Pseudomonas infection being that her groin is asymptomatic. At this point I do not think the groin is the site of the origin of the Pseudomonas bacteremia that she had. If she redevelops gram-negative sepsis or becomes febrile again before we repair the pseudoaneurysm we will fix the pseudoaneurysm as an urgent or emergent operation versus elective. This will be done to limit that as a source of a recurrent Pseudomonas infection. Thank you very much for letting us participate in the care of this patient. History of Present Illness Reason for Consultation: Pseudoaneurysm right common femoral artery Attending Physician: Tyrone Brower MD History of Present Illness This is a 84-year-old female who in August underwent a TAVR procedure at [place]. She was in rehab here in [place] when she developed generalized malaise. She was found to have a fever and sepsis. Her blood cultures grew out Pseudomonas. She is known to have lymphedema both lower extremities. When she presented she had redness of the lower extremities. Ultrasound done of her lower extremities on the right side showed a hematoma in the groin with a small pseudoaneurysm. There is no drainage from the right groin. She denies any pain in the right groin. She does not walk far enough or fast enough to claudicate but she has no symptoms of rest pain in the lower extremities. Allergies Allergy/AdvReac Type Severity Reaction Status Date / Time aspirin Allergy Unknown Verified 10/15/19 22:34 milk Allergy Unknown Verified 10/15/19 22:34 Home Medications Home Medications Medication Instructions Recorded Confirmed Type Tylenol 650 mg PO Q4 PRN 10/15/19 10/15/19 History albuterol sulfate 2 inh INHALATION Q6 PRN 10/15/19 10/15/19 History alendronate 70 mg PO WK 10/15/19 10/15/19 History aspirin [Aspir-81] 81 mg PO DAILY 10/15/19 10/15/19 History atorvastatin 40 mg PO DAILY 10/15/19 10/15/19 History bisacodyl [address] DAILY PRN 10/15/19 10/15/19 History calcium carbonate-vitamin D3 1 tab PO BID 10/15/19 10/15/19 History [Calcium 500 + D] cholecalciferol (vitamin D3) 1,000 unit PO DAILY 10/15/19 10/15/19 History [Vitamin D3] clopidogrel [Plavix] 75 mg PO DAILY 10/15/19 10/15/19 History digoxin [Digox] 125 mcg PO MOWEFR 10/15/19 10/15/19 History docusate sodium 100 mg PO BID PRN 10/15/19 10/15/19 History heparin (porcine) 5,000 unit SUBCUT Q12H 10/15/19 10/15/19 History melatonin 3 mg PO HS PRN 10/15/19 10/15/19 History metoprolol succinate 200 mg PO DAILY 10/15/19 10/15/19 History mirabegron [Myrbetriq] 25 mg PO DAILY 10/15/19 10/15/19 History polyethylene glycol 3350 [Miralax] 17 g PO DAILY PRN 10/15/19 10/15/19 History potassium chloride 10 meq PO BID 10/15/19 10/15/19 History torsemide 20 mg PO DAILY 10/15/19 10/15/19 History wheat dextrin [Benefiber Sugar 8 g PO BID 10/15/19 10/15/19 History Free (dextrin)] Lactobacillus acidoph-L.bulgar 1 tab PO BID #30 tab 10/19/19 Rx [Lactinex] ciprofloxacin HCl 750 mg PO BID #20 tab 10/19/19 Rx Patient History Medical History Atrial fibrillation, chronic Coronary artery disease Dyslipidemia Hypertension Severe aortic stenosis Social History Preferred Language: Cymro Communication Ability: Effective Car Sales Consultant Required: No Beliefs That Will Affect Care: None Current Living Situation: Family Feels Safe at Home: Yes Safety Concerns: Feels Safe At This Time Smoking Status: Unknown if ever smoked Hx Alcohol Use: No Hx Substance Use: No Review of Systems Review of Systems: All systems reviewed & are unremarkable except as noted in HPI & below Physical Exam Constitutional: + frail appearing, + in distress and + overweight; no acute distress Respiratory: normal respiratory effort; no respiratory distress Auscultation: lungs clear to auscultation bilaterally Cardiovascular: Rate/Rhythm: regular rate and regular rhythm Heart Sounds: no murmur Vessels: femoral pulses present Extremities: normal capillary refill and + edema (Bilateral lower extremity lymphedema.) Gastrointestinal (Abdomen): Inspection/Auscultation: abdomen normal to inspection Percussion/Palpation: abdomen soft; abdomen nontender Musculoskeletal: Extremities: extremities normal to inspection and strength 5/5 throughout; no cyanosis Skin: + erythema (Slight pinkish hue of both lower extremities distally.) Psychiatric: Orientation: alert and oriented x 3 Results & Data Vital Signs (Past 12 Hours) Vital Signs Temp Pulse Resp BP Pulse Ox 10/21/19 11:22 36.3 C L 82 18 107/66 96 10/21/19 08:05 36.4 C L 71 19 102/57 L 95 10/21/19 04:00 36.7 C 77 20 119/72 95
--- NOTE | 2019-10-21 12:43 | Hospitalist Progress Note ---
Date of Service October 21, 2019 Assessment & Plan (1) Sepsis: 84 year old female with history of CAD, Severe Aortic Stenosis s/p TAVR 09/02/19, Idiopathic Cardiomyopathy, Paroxysmal Atrial Fibrillation, HTN, CKD 3, Chronic Bilateral Lower Extremity Lymphedema, History of CVA presenting with fever. Sepsis Secondary to lower extremity cellulitis, Pseudomonas bacteremia -- blood cultures 10/15/19: (+) Pseudomonas -- given Vanco and Cefepime then transitioned to Cefepime only -- repeat blood cultures 10/17/19: negative after 48 hours clinically improved, afebrile -- ID consulted- Dr. Burton recommend Cipro x 10 more days (to complete 14 day antibiotic course since negative blood culture taken 10/17/19 order probiotics daily Generalized weakness multifactorial: sepsis, cellulitis, bacteremia, chronic bilateral lower extremit y lymphedema continue PT/OT fall precautions Right Groin Hematoma, Pseudoaneurysm s/p TAVR for Severe Aortic Stenosis 09/02/19 -- (+) minimal bleeding from right groin, insertion site for TAVR --Right Groin Vascular Ultrasound: FINDINGS: Real-time, grayscale, and color Doppler sonography of the right groin is performed. There is a complex nonvascular fluid collection the right groin which measures 3.3 x 1.0 x 1.3 cm. The appearance suggests hematoma. The right common femoral artery is patent with normal arterial waveforms. A small pseudoaneurysm with to-and-fro vascular flow is identified in the right groin and measures up to 2.8 cm. The neck measures approximately 1 cm, and this is located immediately adjacent to the small hematoma. Benign-appearing right inguinal lymph nodes are incidentally noted. IMPRESSION: 1. There is a small pseudoaneurysm identified in the right groin as above. 2. An additional complex nonvascular fluid collection is seen in the right groin adjacent to the pseudoaneurysm, typical in appearance for a hematoma. -- Vascular Surgery consulted- Dr. Mauro Mata recommend elective repair of pseudoaneurysm after treatment for Pseudomonas bacteremia, unless patient develops fever or sepsis, then the repair will need to be done emergently patient ok for PT/OT per Dr. Mata, may also restart Aspirin and Plavix for histoyr of CAD, CVA ff up with Dr. Mata in 2 weeks Diarrhea resolved stool not tested as specimen was "formed" patient reports she normally has 2 soft, loose BMs per day Coronary artery disease: no cardiac symptoms Atrial fibrillation, chronic: (+) non sustained v tach noted while admitted, asymptomatic has history of wide complex tachycarida in the past likely from hypokalemia- given PO K K normalized, repeat in 2-3 days, then regularly continue usual Metoprolol and Digoxin Severe aortic stenosis: Status post TAVR, history of idiopathic cardiomyopathy -- (+) minimal bleeding from right groin, insertion site for TAVR -- management per above Hypertension: Blood pressure is controlled Lymphedema of both lower extremities: Has severe lymphedema involving both lower extremities continue Torsemide with Potassium Keep your follow-up appointment with lymphedema clinic CKD 3 -- stable History of CVA -- continue Aspirin and Plavix d/c to [facility] ff up with Vascular Surgeon Dr. Mata in 2 weeks ff up with PCP 1 week after discharge from [facility] ff up with Staple Shear Operator as scheduled Admission and Anticipated Discharge Date Admission Date: October 15, 2019 Anticipated date of discharge: 10/19/19 Subjective ff up for cellulitis, bacteremia, etc. seen resting in bed, more alert, awake appears comfortable states she feels fine overall today no leg pain, fever/chills denies diarrhea no chest pain, palpitations, dizziness, dyspnea no groin pain, bleeding no other symptoms states she is ready for discharge to [facility] today Review of Systems Review of Systems: All systems reviewed & are unremarkable except as noted in HPI & below Physical Exam Physical Exam: General- oriented x 3, not in distress, speaks in sentences with no effort or accessory muscle use Eyes- anicteric Neck- no JVD Lungs- clear breath sounds bilaterally, no rales/wheezes Heart- normal rate, irregularly irregular rhythm; no murmurs Abdomen- normal bowel sounds, nondistended, soft, nontender Right groin- no bleeding from TAVR insertion site, no erythema/warmth/tenderness Extremities- chronic lymphedema- minimal, and resolving right lower leg, distal aspect erythema, no calf tenderness Neuro- alert, oriented x 3; no gross focal neurologic deficits Skin- warm & dry Results & Data Results & Data ([facility]) Vital Signs (Past 12 Hours) Vital Signs Temp Pulse Resp BP Pulse Ox 10/21/19 11:22 36.3 C L 82 18 107/66 96 10/21/19 08:05 36.4 C L 71 19 102/57 L 95 10/21/19 04:00 36.7 C 77 20 119/72 95 Laboratory Results Laboratory Results - last 24 hr 10/20/19 10/20/19 10/21/19 13:16 13:16 05:50 WBC 10.97 H 10.20 RBC 3.04 L 2.85 L Hgb 9.5 L 9.0 L Hct 30.8 L 28.9 L MCV 101.3 H 101.4 H MCH 31.3 31.6 MCHC 30.8 L 31.1 L RDW Std Deviation 54.4 H 54.2 H RDW Coeff of Vanita 14.9 H 15.0 H Plt Count 225 226 MPV 9.8 10.3 Immature Gran % (Auto) 0.7 1.0 Neut % (Auto) 68.7 62.5 Lymph % (Auto) 19.0 22.8 [place] % (Auto) 9.0 11.1 Eos % (Auto) 2.2 2.2 Baso % (Auto) 0.4 0.4 Immature Gran # (Auto) 0.08 H 0.10 H Neut # (Auto) 7.54 H 6.38 Lymph # (Auto) 2.08 2.33 [place] # (Auto) 0.99 H 1.13 H Eos # (Auto) 0.24 0.22 Baso # (Auto) 0.04 0.04 Sodium 140 Potassium 4.0 Chloride 105 Carbon Dioxide 33 H Anion Gap 2.0 L BUN 20 H Creatinine 1.09 Est Cr Clr Drug Dosing 36.5 Est GFR ( Amer) 54.4 Est GFR (Non-Af Amer) 46.9 BUN/Creatinine Ratio 18.7 Glucose 137 H Calcium 9.1 Magnesium 10/21/19 05:50 WBC RBC Hgb Hct MCV MCH MCHC RDW Std Deviation RDW Coeff of Vanita Plt Count MPV Immature Gran % (Auto) Neut % (Auto) Lymph % (Auto) [place] % (Auto) Eos % (Auto) Baso % (Auto) Immature Gran # (Auto) Neut # (Auto) Lymph # (Auto) [place] # (Auto) Eos # (Auto) Baso # (Auto) Sodium Potassium Chloride Carbon Dioxide Anion Gap BUN Creatinine Est Cr Clr Drug Dosing Est GFR ( Amer) Est GFR (Non-Af Amer) BUN/Creatinine Ratio Glucose Calcium Magnesium 1.9
[2019-10-21 13:27] LABS: Calcium 10.2 mg/dl (8.5-10.1); Creatinine Clr Calc Pharmacy 34.1 ml/min; Est GFR (African American) 50.4; Est GFR (Non-African American) 43.5; Magnesium 1.9 mg/dl (1.8-2.4); Potassium 3.9 mmol/L (3.5-5.1)
--- NOTE | 2019-10-21 13:38 | Discharge Summary ---
Date of Service October 21, 2019 Admission HPI Per Admitting Provider CHIEF COMPLAINT: Fever. HISTORY OF PRESENT ILLNESS: An 84-year-old female with past medical history significant for hyperlipidemia, history of paroxysmal atrial fibrillation, history of severe aortic stenosis, status post TAVR, history of CAD, hypertension, idiopathic cardiomyopathy, mild protein-calorie malnutrition, obesity, chronic kidney disease stage III, osteoporosis, lymphedema, unsteady gait, history of CVA, generalized weakness. The patient presents from [facility] with fever. The patient says she lives with her [id number]. [facility] because she was falling frequently .She developed fever today that is why she was sent here. The patient is somewhat hard of hearing, but able to answer the questions. She denies any cough, no chest pain, no shortness of breath, no nausea, no vomiting, no headache, no blurred vision, no earache, no runny nose, no sore throat. She says she eats fine. No difficulty swallowing. No nausea, no abdominal pain, no diarrhea or constipation. Normal bladder movements. Currently was tachycardic in the ER and was spiking temperature. That is improving with the fluid boluses. She was given vancomycin and cefepime in the ER. No COVID cases in [facility] as per ER. Admission Exam Per Admitting Provider GENERAL: The patient is old and frail, not in acute distress. VITAL SIGNS: Temperature T-max was 38.9, pulse 100, respiratory rate 24, blood pressure 89/38, oxygen 99% on 2 liters. HEENT: No pallor, no icterus. Pupils equal, round, reactive. NECK: No JVD, no neck masses. CARDIOVASCULAR: S1, S2 heard, regular. Tachycardia. No murmurs. RESPIRATORY SYSTEM: Normal AP diameter. No accessory muscle use. No wheezing, no crackles. ABDOMEN: Soft, bowel sounds present, nontender. No distention. CENTRAL NERVOUS SYSTEM: Alert and oriented x3. Obeys simple commands, answers questions appropriately. Moves extremities. EXTREMITIES: Bilateral lower extremity chronic lymphedema present. Lower extremity erythema seen more on the right leg and also warm on palpation. Principal Diagnosis SEPSIS SECONDARY TO LOWER EXTREMITY CELLULITIS, PSEUDOMONAS BACTEREMIA Discharge Exam General- oriented x 3, not in distress, speaks in sentences with no effort or accessory muscle use Eyes- anicteric Neck- no JVD Lungs- clear breath sounds bilaterally, no rales/wheezes Heart- normal rate, irregularly irregular rhythm; no murmurs Abdomen- normal bowel sounds, nondistended, soft, nontender Right groin- no bleeding from TAVR insertion site, no erythema/warmth/tenderness Extremities- chronic lymphedema- minimal, and resolving right lower leg, distal aspect erythema, no calf tenderness Neuro- alert, oriented x 3; no gross focal neurologic deficits Skin- warm & dry Discharge Data Allergies Allergy/AdvReac Type Severity Reaction Status Date / Time aspirin Allergy Unknown Verified 10/15/19 22:34 milk Allergy Unknown Verified 10/15/19 22:34 Consultations 10/15/19 22:55 ED Decision to Admit Stat 10/16/19 00:52 Consult Case Management - Discharge Planning Routine 10/18/19 07:19 Consult Case Management - Discharge Planning Routine 10/20/19 10:20 Consult Infectious Diseases Routine 10/20/19 18:01 Consult Vascular Surgery Routine Ordered Studies CXR: An AP, portable, upright chest radiograph is obtained. No prior studies are available for comparison at the time of dictation. The examination is degraded by portable technique and patient rotation. There is evidence of cardiac valve surgery. The heart is enlarged noting atherosclerotic calcification of the thoracic aorta. The pulmonary vasculature is noncongested. Platelike atelectasis is seen at the left lung base. No airspace consolidation is identified typical for pneumonia and there is no large pleural effusion. No pneumothorax is seen. The skeletal structures are osteopenic. There are healed left-sided rib fractures. IMPRESSION: Cardiomegaly with no acute cardiopulmonary abnormality. 10/20/19 13:09 US arterial duplex LE RT Stat 1. There is a small pseudoaneurysm identified in the right groin as above. 2. An additional complex nonvascular fluid collection is seen in the right groin adjacent to the pseudoaneurysm, typical in appearance for a hematoma. Hospital Course (1) Sepsis: 84 year old female with history of CAD, Severe Aortic Stenosis s/p TAVR 09/02/19, Idiopathic Cardiomyopathy, Paroxysmal Atrial Fibrillation, HTN, CKD 3, Chronic Bilateral Lower Extremity Lymphedema, History of CVA presenting with fever. Sepsis Secondary to lower extremity cellulitis, Pseudomonas bacteremia -- blood cultures 10/15/19: (+) Pseudomonas -- given Vanco and Cefepime then transitioned to Cefepime only -- repeat blood cultures 10/17/19: negative after 48 hours clinically improved, afebrile -- ID consulted- Dr. Burton recommend Cipro x 10 more days (to complete 14 day antibiotic course since negative blood culture taken 10/17/19 order probiotics daily Right Groin Hematoma, Pseudoaneurysm s/p TAVR for Severe Aortic Stenosis 09/02/19 -- (+) minimal bleeding from right groin, insertion site for TAVR --Right Groin Vascular Ultrasound: FINDINGS: Real-time, grayscale, and color Doppler sonography of the right groin is performed. There is a complex nonvascular fluid collection the right groin which measures 3.3 x 1.0 x 1.3 cm. The appearance suggests hematoma. The right common femoral artery is patent with normal arterial waveforms. A small pseudoaneurysm with to-and-fro vascular flow is identified in the right groin and measures up to 2.8 cm. The neck measures approximately 1 cm, and this is located immediately adjacent to the small hematoma. Benign-appearing right inguinal lymph nodes are incidentally noted. IMPRESSION: 1. There is a small pseudoaneurysm identified in the right groin as above. 2. An additional complex nonvascular fluid collection is seen in the right groin adjacent to the pseudoaneurysm, typical in appearance for a hematoma. -- Vascular Surgery consulted- Dr. Mauro Mata recommend elective repair of pseudoaneurysm after treatment for Pseudomonas bacteremia, unless patient develops fever or sepsis, then the repair will need to be done emergently patient ok for PT/OT per Dr. Mata, may also restart Aspirin and Plavix for histoyr of CAD, CVA ff up with Dr. Mata in [address] Mata: " This is most likely from the 14 Uzbek sheath which was inserted for her TAVR procedure. There is a small surrounding hematoma in the area. There is no overlying erythema or drainage of the groin. The neck of the aneurysm appears to be 1 cm in size making it a poor candidate for endovascular thrombosing of the aneurysm. We do recommend to have this repaired. I would like to wait until she is completes her treatment for her Pseudomonas infection being that her groin is asymptomatic. At this point I do not think the groin is the site of the origin of the Pseudomonas bacteremia that she had. If she redevelops gram-negative sepsis or becomes febrile again before we repair the pseudoaneurysm we will fix the pseudoaneurysm as an urgent or emergent operation versus elective. This will be done to limit that as a source of a recurrent Pseudomonas infection." Generalized weakness multifactorial: sepsis, cellulitis, bacteremia, chronic bilateral lower extremity lymphedema continue PT/OT fall precautions Diarrhea resolved stool not tested as specimen was "formed" patient reports she normally has 2 soft, loose BMs per day Coronary artery disease: no cardiac symptoms Atrial fibrillation, chronic: (+) non sustained v tach noted while admitted, asymptomatic has history of wide complex tachycarida in the past likely from hypokalemia- given PO K K normalized, repeat in 2-3 days, then regularly in light of non sustained v tach continue usual Metoprolol and Digoxin Severe aortic stenosis: Status post TAVR, history of idiopathic cardiomyopathy -- (+) minimal bleeding from right groin, insertion site for TAVR -- management per above Hypertension: Blood pressure is controlled Lymphedema of both lower extremities: Has severe lymphedema involving both lower extremities continue Torsemide with Potassium Keep your follow-up appointment with lymphedema clinic CKD 3 -- stable History of CVA -- continue Aspirin and Plavix d/c to [facility] ff up with Vascular Surgeon Dr. Mata in 2 weeks ff up with PCP 1 week after discharge from [facility] ff up with Vehicle Leasing And Rental Manager as scheduled Total Time Total Time Spent Total Time Spent (In Minutes): 80 minutes Discharge Plan Discharge Items Patient Disposition: Transfer Inpatient Rehab Fac Reason For Visit: FEVER Discharge Diagnosis: Sepsis secondary to lower extremity cellulitis, Pseudomonas bacteremia Activity: As commented below Activity Comment: Resume activity gradually as tolerated Driving/Machine Use: No driving Non-emergency contact: Primary Care Provider Call non-emergency contact if: you have any medication questions, your symptoms worsen, you have a fever, your wound has increased redness, your wound has increased drainage and your wound pain has increased Follow-up/Referrals: Mauro Mata MD [Physician] - (Call [phone] to schedule an appointment for 4 weeks after discharge) Xenia Metz DO [Primary Care Provider] - (Please make an appointment with your primary care provider within 7 days following discharge from the facility) Diet: Heart Healthy and Low Sodium (2gm) Addtl Attending Provider Instructions: Please order probiotics daily. Repeat potassium and magnesium level in 2-3 days, then regularly. Monitor Right Groin wound closely. OK for PT/OT as per Vascular Surgeon Dr. Mauro Mata. Follow up with Dr. Mata in 2 weeks. Please refer to accompanying hospital discharge summary for full details. Please take precaution to avoid fall Try to keep your legs elevated whenever possible especially when sleeping or in bed Please have regular follow-up with the lymphedema clinic Pending Studies at Discharge: Yes Studies:: Repeat potassium and magnesium level in 2-3 days, then regularl Stand-Alone Forms: My [facility] Skilled Items Patient informed of condition?: Yes DNR: No Discharge Level of Care: Skilled Communicable Disease: No Discharge Prognosis: Stable Lines: None Urinary Catheter: Yes Medications and DC Order Prescriptions: New ciprofloxacin HCl 750 mg tablet 750 mg PO BID Qty: 20 RF: 0 Lactinex 1 million cell tablet,chewable 1 tab PO BID Qty: 30 RF: 0 Continued atorvastatin 40 mg Tablet 40 mg PO DAILY RF: 0 potassium chloride 10 mEq Capsule, Extended Release 10 meq PO BID RF: 0 torsemide 20 mg Tablet 20 mg PO DAILY RF: 0 polyethylene glycol 3350 [Miralax] 17 gram Powder In Packet 17 g PO DAILY PRN (Reason: Constipation) RF: 0 alendronate 70 mg Tablet 70 mg PO WK RF: 0 metoprolol succinate 100 mg Tablet Extended Release 24 Hr 200 mg PO DAILY RF: 0 melatonin 3 mg Tablet 3 mg PO HS PRN (Reason: Sleep) RF: 0 clopidogrel [Plavix] 75 mg Tablet 75 mg PO DAILY RF: 0 aspirin [Aspir-81] 81 mg Tablet,Delayed Release (Dr/Ec) 81 mg PO DAILY RF: 0 bisacodyl 10 mg Suppository 10 mg MS DAILY PRN (Reason: Constipation) RF: 0 docusate sodium 100 mg Capsule 100 mg PO BID PRN (Reason: Constipation) RF: 0 digoxin [Digox] 125 mcg (0.125 mg) tablet 125 mcg PO MOWEFR RF: 0 albuterol sulfate 90 mcg/actuation Hfa Aerosol Inhaler 2 inh INHALATION Q6 PRN (Reason: Wheezing) RF: 0 calcium carbonate-vitamin D3 [Calcium 500 + D] 500 mg(1,250mg) -200 unit Tablet 1 tab PO BID RF: 0 cholecalciferol (vitamin D3) [Vitamin D3] 25 mcg (1,000 unit) Tablet 1,000 unit PO DAILY RF: 0 Myrbetriq 25 mg Tablet Extended Release 24 Hr 25 mg PO DAILY RF: 0 Benefiber Sugar Free (dextrin) 3 gram/4 gram Powder 8 g PO BID RF: 0 Tylenol 650 mg PO Q4 PRN (Reason: Pain) RF: 0 Discontinued heparin (porcine) 5,000 unit/mL Syringe 5,000 unit SUBCUT Q12H RF: 0 Discharge Orders: Discharge Order (Routine); Ordered 10/21/19 Ordered By: Tyrone Brower Admission Data Admit Date/Time: 10/15/19 23:43 Attending Provider: Tyrone Brower Admit Provider: Arvind Newsome Primary Care Provider: Xenia Metz Other Providers: [facility] ; Arvind Newsome ; Trevin Lindo ; Jose Fuentes ; Keiry Burton ; Mauro Mata Other Interventions: Discharge Summary Assessment (RN) Last Done: 10/21/19 13:18
== END 2019-10-21 14:32 | DRG 872 ==
LOC: ED 21:13 → SUATTDRO 23:43 → 2E 23:43 → 2N 10-17 13:52

== ENCOUNTER 2020-04-03 10:04 | Inpatient (IN) ==
[2020-04-03] MEDS ORDERED: NITROGLYCERIN 2% OINTMENT 30GM TUBE EXT STA (10:38)
[2020-04-03 10:46] LABS: Basophils # (auto) 0.03 K/uL (0-0.2); Basophils % (auto) 0.2 %; Eosinophils # (auto) 0.09 K/uL (0-0.5); Eosinophils % (auto) 0.7 %; Hematocrit (blood only) 35.7 % (37-47); Immature Granulocytes # (auto) 0.02 K/uL (0.00-0.02); Immature Granulocytes % (auto) 0.2 %; Lymphocytes # (auto) 1.05 K/uL (1.2-3.4); Lymphocytes % (auto) 8.7 %; Mean Corpuscular Hgb Conc 30.8 g/dL (32-36); Mean Corpuscular Volume 100.6 fL (80-100); Mean Platelet Volume 10.8 fL (7.4-10.4); Monocytes # (auto) 1.29 K/uL (0.11-0.59); Monocytes % (auto) 10.7 %; Neutrophils # (auto) 9.62 K/uL (1.4-6.5); Neutrophils % (auto) 79.5 %; Platelet Count 202 K/uL (130-400); RDW Coefficient of Variation 14.4 % (11.5-14.5); RDW Standard Deviation 52.6 fL (36.4-46.3); Red Blood Count 3.55 M/uL (4.2-5.4)
[2020-04-03 10:55] LABS: Albumin Level 2.3 gm/dl (3.4-5.0); BUN Creatinine Ratio 14.7 (10-20); Calcium 8.6 mg/dl (8.5-10.1); Creatinine Clr Calc Pharmacy 34.7 ml/min; Est GFR (African American) 50.1; Est GFR (Non-African American) 43.2; Potassium 4.1 mmol/L (3.5-5.1)
[2020-04-03 10:58] LABS: INR 1.1 (0.9-1.1); Partial Thromboplastin Ratio 1.2; Prothrombin Time 11.4 Seconds (9.0-12.0)
[2020-04-03 11:00] LABS: Albumin Globulin Ratio 0.6 (0.9-2); Bilirubin,Total 1.1 mg/dl (0.2-1); Creatine Kinase MB 1.5 ng/ml (0.5-3.6); Globulin 3.7 gm/dl (2.5-4.0); Troponin I 0.025 ng/ml (0-0.045)
--- NOTE | 2020-04-03 11:01 | XRay Report ---
XR chest 1V portable CLINICAL HISTORY: Atypical chest pain COMPARISON STUDY: 10/15/2019 FINDINGS: The heart is mildly enlarged. There are aortic calcifications. There is aortic valve graft. There is mild interstitial thickening. There is a hiatal hernia. There are left basilar opacities li elliot atelectatic. There are subtle increased markings within the right upper lung zone. A minimal pne umonitis cannot be excluded. There is a right sixth rib fracture which appears old. There is blunting of the left lateral costophrenic angle. A trace effusion cannot be excluded IMPRESSION: 1. Hiatal hernia 2. Left basilar opacities likely atelectatic 3. Subtle increased markings in the right upper lung zone. A minimal pneumonitis cannot be excluded. 4. Possible trace left pleural effusion ACT 112: Negative or not required by law. Electronically signed by: Froilan Villasenor M.D. 04/03/2020 11:00 AM
[2020-04-03] MEDS ORDERED: PIPERACILLIN/TAZOBACTAM 4.5 GM/120 ML BAG IV ONE (11:49)
[2020-04-03] MEDS ORDERED: PIPERACILL/TAZOBAC CONSULT ACTIVE PRN (11:49)
[2020-04-03] MEDS ORDERED: LEVOFLOXACIN/D5W 750 MG/150 ML BAG IV STA (11:51)
--- NOTE | 2020-04-03 12:14 | Emergency Department Note ---
History of Present Illness General Chief Complaint: Chest Pain Time Seen by Provider: 04/03/20 10:27 Source: patient, EMS, RN notes reviewed and old records reviewed Mode of arrival: EMS Limitations: no limitations History of Present Illness Provider Complaint: chest pain Onset (ago): hour(s) 3 Duration: now resolved Onset: during rest and awoke with symptoms Pain Location: substernal Pain Radiation: back Severity: moderate Current Pain Intensity: 0 Quality: + aching Relieved By: + nitroglycerin Exacerbated By: + exertion Context: + recent illness Associated symptoms: + nausea and + vomiting Treatments prior to arrival: nitroglycerin This is an 85-year-old female who presents emergency department complaining of chest pain. The patient reports she was given nitro which made the pain go away. Upon arrival to the emergency department the patient has no complaints. Patient was recently admitted to [facility] from [facility] [address]. Home Medications Home Medications Medication Instructions Recorded Confirmed Type albuterol sulfate 2 inh INHALATION Q6 PRN 10/15/19 04/03/20 History atorvastatin 40 mg PO QAM 10/15/19 04/03/20 History bisacodyl 10 mg OK DAILY PRN 10/15/19 04/03/20 History cholecalciferol (vitamin D3) 1,000 unit PO DAILY 10/15/19 04/03/20 History [Vitamin D3] docusate sodium 100 mg PO BID PRN 10/15/19 04/03/20 History melatonin 3 mg PO HS PRN 10/15/19 04/03/20 History polyethylene glycol 3350 [Miralax] 17 g PO DAILY PRN 10/15/19 04/03/20 History potassium chloride 10 meq PO BID 10/15/19 04/03/20 History torsemide 20 mg PO DAILY 10/15/19 04/03/20 History digoxin 125 mcg (0.125 mg) tablet 125 mcg PO MOWEFR #28 tab 11/08/19 04/03/20 Rx ferrous sulfate 325 mg (65 mg 325 mg PO BID 02/08/20 04/03/20 History iron) tablet,delayed release multivitamin 1 tab PO DAILY 02/08/20 04/03/20 History acetaminophen 325 mg PO Q8 PRN 03/29/20 04/03/20 History heparin (porcine) 5,000 unit SUBCUT Q8H 04/03/20 04/03/20 History metoprolol tartrate 25 mg PO BID 04/03/20 04/03/20 History nitroglycerin 0.4 mg SUBLINGUAL UD PRN 04/03/20 04/03/20 History pantoprazole 40 mg PO QAM 04/03/20 04/03/20 History vancomycin 125 mg PO DAILY 04/03/20 04/03/20 History Allergies Allergy/AdvReac Type Severity Reaction Status Date / Time milk AdvReac Mild Diarrhea Verified 04/03/20 11:45 Past Med/Surg History Medical History (Updated 04/04/20 @ 08:32 by Wisam Chatterjee MD) Atrial fibrillation, permanent C. difficile diarrhea CKD (chronic kidney disease) stage 3, GFR 30-59 ml/min Coronary artery disease Dyslipidemia Hypertension Lymphedema of both lower extremities Multiple intracardiac shunts PFO (patent foramen ovale) Pseudoaneurysm Sepsis Severe aortic stenosis Surgical History H/O tooth extraction History of esophagogastroduodenoscopy (EGD) History of tonsillectomy and adenoidectomy S/P TAVR (transcatheter aortic valve replacement) Family History Father Cancer Social History Smoking Status: Never smoker Hx Alcohol Use: No Hx Substance Use: No Preferred Language: Palauan Communication Ability: Effective 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 Beliefs That Will Affect Care: None Current Living Situation: Rehab Current Living Situation Comment: [facility] Other Information That Helps Us Care for You: No Feels Safe at Home: Yes Safety Concerns: Feels Safe At This Time Assistive Devices: Walker Review of Systems A total of 10 systems reviewed and were otherwise negative Physical Exam Vital Signs Vital Signs - 24 hr 04/03/20 10:10 04/03/20 10:15 04/03/20 10:36 Temperature 37 C Temperature Source Oral Pulse Rate 105 H 135 H Pulse Rate from SpO2 Sensor 115 H Pulse Rhythm Irregular Respiratory Rate 27 H 24 Respiratory Effort / Characteristics Spontaneous Respiratory Depth Normal Blood Pressure 161/80 H 161/80 H Blood Pressure Mean 107 99 Blood Pressure Position Lying Pulse Oximetry 94 94 93 Oxygen Delivery Method Room Air Room Air Sepsis Recent Fever Within 48 Hours No Sepsis New/Unexplained Change in Mental Status No Sepsis Action Taken by Nursing No Action Required 04/03/20 11:22 04/03/20 11:30 04/03/20 12:00 Temperature Temperature Source Pulse Rate 98 H 97 H 93 H Pulse Rate from SpO2 Sensor 107 H 98 H 95 H Pulse Rhythm Respiratory Rate 28 H 27 H 25 H Respiratory Effort / Characteristics Respiratory Depth Blood Pressure 159/100 H 153/82 H 148/87 H Blood Pressure Mean 116 103 115 Blood Pressure Position Pulse Oximetry 95 94 94 Oxygen Delivery Method Sepsis Recent Fever Within 48 Hours Sepsis New/Unexplained Change in Mental Status Sepsis Action Taken by Nursing VITAL SIGNS - Vital signs and nursing notes were reviewed. GENERAL - 85-year-old female appearing stated age who is in no acute distress. Communicates well with provider and answers questions appropriately. SKIN - Without rashes. HEAD - NC/AT. EYES - PERRL with EOMI bilaterally. Sclera anicteric. Palpebral conjunctiva pink and moist with no injection noted. EARS - No deformities of external structures noted on gross examination bilaterally. No pain elicited with palpation of the tragus bilaterally. External auditory canals without discharge or otorrhea. Tympanic membranes pearly [place] without retraction or bulging. No fluid or purulent material visualized behind the TM. Handle of malleus, umbo, cone of light, pars tensa/flaccid all easily visualized. NOSE - Midline and without cyanosis. No epistaxis or purulent drainage noted. Septum midline without deviation or septal hematoma noted. MOUTH/OROPHARYNX - Without perioral cyanosis. Buccal mucosa pink and moist and without leukoplakia. Tongue midline with equal elevation of palate bilaterally. No tonsillar hypertrophy, erythema, or exudates noted. dentition noted. NECK - Neck with FROM. Supple to palpation. lymphadenopathy noted. No nuchal rigidity. LUNGS - Chest wall symmetric without accessory muscle use, intercostals retractions, or central cyanosis. Normal vesicular breath sounds CTA B/L. No wheezes, rales, or rhonchi appreciated. CARDIAC - RRR with S1/S2. No murmur, rubs, or gallops appreciated. ABDOMEN - Abdominal contour without pulsations or visible masses. BS normoactive all four quadrants. No tenderness, palpable masses, hepatosplenomegaly, or ascites noted. EXTREMITIES - No clubbing or peripheral cyanosis. No pretibial edema present. +3/5 radial, posterior tibial, and dorsalis pedis pulses palpated throughout. +5/5 strength noted in UE/LE bilaterally. NEUROLOGIC - Cranial nerves II through XII grossly intact. Sensory intact to light touch throughout. Patellar reflexes +2/4. PSYCH - A&Ox3 and cooperates fully with examiner. Pt is very pleasant and interacts well with examiner. Course Administered Medications Atorvastatin Calcium (Atorvastatin 40 Mg Tab) 40 mg PO QAM REECE Stop: 05/04/20 08:59 Last Admin: 04/04/20 08:23 Dose: 40 mg Documented by: [id number] Digoxin (Digoxin 0.125 Mg Tab) 0.125 mg PO [id number] [facility] Stop: 05/03/20 19:25 Last Admin: 04/03/20 20:12 Dose: 0.125 mg Documented by: [id number] Ferrous Sulfate (Ferrous Sulfate 325 Mg Tab) 325 mg PO BID REECE Stop: 05/03/20 20:59 Last Admin: 04/04/20 08:23 Dose: 325 mg Documented by: [id number] Admin: 04/03/20 20:12 Dose: 325 mg Documented by: [id number] Heparin Sodium (Porcine) (Heparin Sod 5,000 Unit/0.5 Ml Vial) 5,000 units SQ Q8 REECE Stop: 05/03/20 21:59 Last Admin: 04/04/20 06:18 Dose: 5,000 units Documented by: [id number] Cosigned by: [id number] Admin: 04/03/20 20:13 Dose: 5,000 units Documented by: [id number] Cosigned by: [id number] Furosemide 40 mg/ Syringe 4 mls @ 4 mls/min IV [id number] REECE Stop: 05/03/20 19:36 Last Admin: 04/04/20 08:23 Dose: 4 mls/min Documented by: [id number] Admin: 04/03/20 20:24 Dose: 4 mls/min Documented by: [id number] Multivitamins (Multivitamin Tab) 1 tab PO DAILY REECE Stop: 05/04/20 08:59 Last Admin: 04/04/20 08:23 Dose: 1 tab Documented by: [id number] Pantoprazole Sodium (Pantoprazole 40 Mg Tab) 40 mg PO QAM REECE Stop: 05/04/20 08:59 Last Admin: 04/04/20 08:23 Dose: 40 mg Documented by: [id number] Potassium Chloride (Potassium Chloride 10 Meq Tabcr) 10 meq PO BID REECE Stop: 05/03/20 20:59 Last Admin: 04/04/20 08:23 Dose: 10 meq Documented by: [id number] Admin: 04/03/20 20:11 Dose: 10 meq Documented by: [id number] Raspberry (Raspberry Syrup 5 Ml Udp) 5 ml PO DAILY REECE Stop: 04/18/20 08:59 Last Admin: 04/04/20 08:23 Dose: 5 ml Documented by: [id number] Vancomycin HCl (Vancomycin Hcl 125 Mg/2.5ml Soln) 125 mg PO DAILY REECE Stop: 05/04/20 08:59 Last Admin: 04/04/20 08:23 Dose: 125 mg Documented by: [id number] Vitamin D (Cholecalciferol 1,000 Units 25 Mcg Tab) 1,000 units PO DAILY REECE Stop: 05/04/20 08:59 Last Admin: 04/04/20 08:23 Dose: 1,000 units Documented by: [id number] Discontinued Medications Furosemide (Furosemide 40 Mg/4 Ml Vial) 40 mg IV NOW STA Stop: 04/03/20 13:05 Last Admin: 04/03/20 14:53 Dose: 40 mg Documented by: [id number] Piperacillin Sod/Tazobactam Sod (Zosyn) 4.5 gm in 120 mls @ 240 mls/hr IV NOW ONE Stop: 04/03/20 12:18 Last Infusion: 04/03/20 13:33 Dose: 0 mls/hr Documented by: [id number] Admin: 04/03/20 13:03 Dose: 240 mls/hr Documented by: [id number] Levofloxacin/Dextrose (Levaquin/D5w) 750 mg in 150 mls @ 100 mls/hr IV NOW STA Stop: 04/03/20 13:20 Last Infusion: 04/03/20 15:26 Dose: 0 mls/hr Documented by: [id number] Admin: 04/03/20 13:56 Dose: 100 mls/hr Documented by: [id number] Ioversol (Optiray 320 125ml) 118 ml IV ONCE ONE Stop: 04/03/20 12:46 Last Admin: 04/03/20 12:45 Dose: 118 ml Documented by: [id number] Nitroglycerin (Nitroglycerin 2% Ointment 30gm Tube) 1 inch EXT NOW STA Stop: 04/03/20 10:39 Last Admin: 04/03/20 11:26 Dose: 1 inch Documented by: [id number] Medical Decision Making Differential Diagnosis + fracture of rib, + pneumothorax, + stable angina, + unstable angina pectoris, + atypical chest pain, + st elevation myocardial infarction, + costochondritis, + chest pain, + biliary colic, + cardiac ischemia, + myocarditis, + pericarditis, + costochondritis, + pleurisy, + aortic dissection, + pulmonary embolism, + pneumonia, + musculoskeletal, + infections and + pancreatitis Medical Records Attestation: I reviewed the patient's medical records. Home Medications Current Medication List: was personally reviewed by me Laboratory Data Attestation: I reviewed the patient's lab results. Result diagrams: 04/04/20 06:54 04/04/20 06:54 Labs: Lab Results 04/03/20 04/03/20 04/03/20 Range/Units 10:22 10:22 10:22 WBC 12.10 H (4.8-10.8) K/uL RBC 3.55 L (4.2-5.4) M/uL Hgb 11.0 L (12.0-16.0) g/dL Hct 35.7 L (37-47) % MCV 100.6 H (80-100) fL MCH 31.0 (25-34) pg MCHC 30.8 L (32-36) g/dL RDW Std Deviation 52.6 H (36.4-46.3) fL RDW Coeff of Vanita 14.4 (11.5-14.5) % Plt Count 202 (130-400) K/uL MPV 10.8 H (7.4-10.4) fL Immature Gran % (Auto) 0.2 % Neut % (Auto) 79.5 % Lymph % (Auto) 8.7 % Weston % (Auto) 10.7 % Eos % (Auto) 0.7 % Baso % (Auto) 0.2 % Neut # (Auto) 9.62 H (1.4-6.5) K/uL Lymph # (Auto) 1.05 L (1.2-3.4) K/uL Weston # (Auto) 1.29 H (0.11-0.59) K/uL Eos # (Auto) 0.09 (0-0.5) K/uL Baso # (Auto) 0.03 (0-0.2) K/uL Immature Gran # (Auto) 0.02 (0.00-0.02) K/uL PT 11.4 (9.0-12.0) Seconds INR 1.1 (0.9-1.1) APTT 33.0 H (21.0-31.0) Seconds PTT Ratio 1.2 Sodium 142 (136-145) mmol/L Potassium 4.1 (3.5-5.1) mmol/L Chloride 109 H (98-107) mmol/L Carbon Dioxide 28 (21-32) mmol/L Anion Gap 6.0 (3-11) BUN 17 (7-18) mg/dl Creatinine 1.16 (0.6-1.2) mg/dl Est Cr Clr Drug Dosing 34.7 ml/min Est GFR ( Amer) 50.1 Est GFR (Non-Af Amer) 43.2 BUN/Creatinine Ratio 14.7 (10-20) Glucose 109 H (70-99) mg/dl Calcium 8.6 (8.5-10.1) mg/dl Total Bilirubin 1.1 H (0.2-1) mg/dl AST 31 (15-37) U/L ALT 19 (12-78) U/L Alkaline Phosphatase 99 (45-117) U/L Total Creatine Kinase 69 (26-192) U/L CK-MB (CK-2) 1.5 (0.5-3.6) ng/ml CK/CKMB % Calc 2.2 (0-3.0) Troponin I 0.025 (0-0.045) ng/ml NT-Pro-B Natriuret Pep (0-1800) pg/ml Total Protein 6.0 L (6.4-8.2) gm/dl Albumin 2.3 L (3.4-5.0) gm/dl Globulin 3.7 (2.5-4.0) gm/dl Albumin/Globulin Ratio 0.6 L (0.9-2) Lipase 213 (73-393) U/L TSH (0.300-4.500) uIu/ml Digoxin (0.8-2.0) ng/ml 04/03/20 04/03/20 Range/Units 10:22 10:22 WBC (4.8-10.8) K/uL RBC (4.2-5.4) M/uL Hgb (12.0-16.0) g/dL Hct (37-47) % MCV (80-100) fL MCH (25-34) pg MCHC (32-36) g/dL RDW Std Deviation (36.4-46.3) fL RDW Coeff of Vanita (11.5-14.5) % Plt Count (130-400) K/uL MPV (7.4-10.4) fL Immature Gran % (Auto) % Neut % (Auto) % Lymph % (Auto) % Weston % (Auto) % Eos % (Auto) % Baso % (Auto) % Neut # (Auto) (1.4-6.5) K/uL Lymph # (Auto) (1.2-3.4) K/uL Weston # (Auto) (0.11-0.59) K/uL Eos # (Auto) (0-0.5) K/uL Baso # (Auto) (0-0.2) K/uL Immature Gran # (Auto) (0.00-0.02) K/uL PT (9.0-12.0) Seconds INR (0.9-1.1) APTT (21.0-31.0) Seconds PTT Ratio Sodium (136-145) mmol/L Potassium (3.5-5.1) mmol/L Chloride (98-107) mmol/L Carbon Dioxide (21-32) mmol/L Anion Gap (3-11) BUN (7-18) mg/dl Creatinine (0.6-1.2) mg/dl Est Cr Clr Drug Dosing ml/min Est GFR ( Amer) Est GFR (Non-Af Amer) BUN/Creatinine Ratio (10-20) Glucose (70-99) mg/dl Calcium (8.5-10.1) mg/dl Total Bilirubin (0.2-1) mg/dl AST (15-37) U/L ALT (12-78) U/L Alkaline Phosphatase (45-117) U/L Total Creatine Kinase (26-192) U/L CK-MB (CK-2) (0.5-3.6) ng/ml CK/CKMB % Calc (0-3.0) Troponin I (0-0.045) ng/ml NT-Pro-B Natriuret Pep 91000 H (0-1800) pg/ml Total Protein (6.4-8.2) gm/dl Albumin (3.4-5.0) gm/dl Globulin (2.5-4.0) gm/dl Albumin/Globulin Ratio (0.9-2) Lipase (73-393) U/L TSH 1.160 (0.300-4.500) uIu/ml Digoxin 0.9 (0.8-2.0) ng/ml Imaging Data Chest x-ray: Radiologist's impression: [place], [place] [phone] XRay Report Patient: SUDEEP HANNAH Admit Date: 04/03/20 MR#: [id number] Address1: [address] [place] [address] Acct ID:[id number] Address2: [facility] Date: 1935 [facility] Zip: [place] [address] Age: 85 Location: ED Sex: F Room/Bed: Att Phy: Diagnosis: CHEST PAIN Martha Phy: [facility] Service Date: 04/03/20 Fam Phy: Interpreting Phy: Froilan Villasenor MD Admit Phy: Ordering Phy: Wisam Chatterjee MD cc: ~ XR chest 1V portable CLINICAL HISTORY: Atypical chest pain COMPARISON STUDY: 10/15/2019 FINDINGS: The heart is mildly enlarged. There are aortic calcifications. There is aortic valve graft. There is mild interstitial thickening. There is a hiatal hernia. There are left basilar opacities likely atelectatic. There are subtle increased markings within the right upper lung zone. A minimal pneumonitis latasha ot be excluded. There is a right sixth rib fracture which appears old. There is blunting of the left lateral costophrenic angle. A trace effusion cannot be excluded IMPRESSION: 1. Hiatal hernia 2. Left basilar opacities likely atelectatic 3. Subtle increased markings in the right upper lung zone. A minimal pneumonitis cannot be excluded. 4. Possible trace left pleural effusion ACT 112: Negative or not required by law. Electronically signed by: Froilan Villasenor M.D. 04/03/2020 11:00 AM Dictated: 04/03/201054 Transcribed: 04/03/201054 CT scan - chest: Radiologist's impression: [facility] [place] [phone] CT Scan Report Patient: SUDEEP HANNAH Date: 04/03/20 MR#: [id number]: [address] [facility] [address] Acct ID:[id number]: [facility] Date: [address] Zip: [place] [address] Age: 85Location: ED Sex: FRoom/Bed: Att Phy:Diagnosis: CHEST PAIN [facility] Date: 04/03/20 Fam Phy:Interpreting Phy: Froilan Villasenor MD Admit Phy: Ordering Phy: Wisam Chatterjee MD cc: ~ CT ANGIOGRAM OF THE CHEST CLINICAL HISTORY: Atypical chest pain. Possible pulmonary embolism. COMPARISON STUDY: Chest x-ray dated 04/03/2020 TECHNIQUE: Following the IV administration of 118 mL of Optiray-320, CT angiogram of the thorax was performed from the thoracic inlet to the lung bases utilizing the pulmonary embolus protocol. Images are reviewed in the axial, sagittal, and coronal planes. IV contrast was administered without complication. MIP imaging was performed. A dose lowering technique was utilized adhering to the principles of ALARA. CT DOSE: 267.32 mGy.cm FINDINGS: Within the upper abdomen, there is suspected cholelithiasis. There is a hiatal hernia. There are no pathologically enlarged axillary mediastinal or hilar lymph nodes. There was no evidence of thoracic aortic dilatation. Aortic valve graft is visualized. There are no pulmonary artery filling defects to indicate acute pulmonary embolism. There are bilateral pleural effusions. There is respiratory motion artifact. There is no lobar consolidation. There are bilateral lower lobe opacities likely representing compressive atelectasis. Atelectatic changes are also present within the lingula. There is subtle groundglass attenuation within the right upper lobe. This could represent mild edema. There is mild subpleural septal edema IMPRESSION: 1. No evidence of acute pulmonary embolism 2. Suspected mild pulmonary edema. Bilateral pleural effusions. 3. Bibasilar opacities likely atelectatic ACT 112: Negative or not required by law. Electronically signed by: Froilan Villasenor M.D. 04/03/2020 1:00 PM Dictated: 04/03/201254 Transcribed: 04/03/201254 ECG Data Attestation: I personally reviewed and interpreted this ECG as follows: Indication: chest pain Rate (beats per minute): 118 Rhythm: atrial fibrillation (with rvr) Findings: + Q waves (Anterior) Comparison ECG Date: from (10/20/2019) Change: no significant change Blood Pressure Blood Pressure Findings: Elevated blood pressure Blood Pressure Disposition: elevated BP felt to be situational MDM Narrative Patient was seen and evaluated as above in room C3. Review was performed of nursing notes and vital signs. I did review pertinent previous visits and patient history. After obtaining a thorough history and physical examination the above work up was performed. . This is an 85-year-old female who presents emergency department complaining of chest pain that was relieved by nitro. The patient's x-ray is concerning for pneumonia therefore blood cultures were obtained and the patient was started on broad-spectrum antibiotics. Patient was sent for CAT scan of the chest. She was given Lasix here in the emergency department and swab for COVID. I did discuss the case with the hospitalist service as her troponin is slightly elevated. Patient is in agreement with the treatment plan. An order was placed for continuous cardiac monitoring. The monitor shows a rate of 105 with Afib rhythm. The patient was evaluated during the global COVID-19 pandemic, and that diagnosis was suspected/considered upon their initial presentation. Their evaluation, treatment and testing was consistent with current guidelines for pat ients who present with complaints or symptoms that may be related to COVID-19. Impression & Plan Chest pain, Acute on chronic heart failure with preserved ejection fraction (HFpEF), SIRS (systemic inflammatory response syndrome), CKD (chronic kidney disease) stage 3, GFR 30-59 ml/min Discharge Plan Visit Data Chief Complaint: Chest Pain ED Provider: Wisam Chatterjee Discharge Problem: Chest pain, Acute on chronic heart failure with preserved ejection fraction (HFpEF), SIRS (systemic inflammatory response syndrome), CKD (chronic kidney disease) stage 3, GFR 30-59 ml/min Patient Disposition: Admitted As Inpatient Discharge Instructions Interventions: ED Discharge Assessment Last Done: 04/03/20 19:31 Discharge Problem: Chest pain Qualifiers: Chest pain type: unspecified Qualified Code(s): R07.9 - Chest pain, unspecified
[2020-04-03] MEDS ORDERED: OPTIRAY 320 125ml IV ONE (12:45)
--- NOTE | 2020-04-03 13:02 | CT Scan Report ---
CT ANGIOGRAM OF THE CHEST CLINICAL HISTORY: Atypical chest pain. Possible pulmonary embolism. COMPARISON STUDY: Chest x-ray dated 04/03/2020 TECHNIQUE: Following the IV administration of 118 mL of Optiray-320, CT angiogram of the thorax was p erformed from the thoracic inlet to the lung bases utilizing the pulmonary embolus protocol. Images a re reviewed in the axial, sagittal, and coronal planes. IV contrast was administered without complica tion. MIP imaging was performed. A dose lowering technique was utilized adhering to the principles o f ALARA. CT DOSE: 267.32 mGy.cm FINDINGS: Within the upper abdomen, there is suspected cholelithiasis. There is a hiatal hernia. There are no pathologically enlarged axillary mediastinal or hilar lymph nodes. There was no evidence of thoracic aortic dilatation. Aortic valve graft is visualized. There are no pulmonary artery filling defects to indicate acute pulmonary embolism. There are bilateral pleural effusions. There is respiratory motion artifact. There is no lobar consolidation. There are bilateral lower lobe opacities likely representing compressive atelectasis. Atelectatic changes are also present within t he lingula. There is subtle groundglass attenuation within the right upper lobe. This could represent mild edema. There is mild subpleural septal edema IMPRESSION: 1. No evidence of acute pulmonary embolism 2. Suspected mild pulmonary edema. Bilateral pleural effusions. 3. Bibasilar opacities likely atelectatic ACT 112: Negative or not required by law. Electronically signed by: Froilan Villasenor M.D. 04/03/2020 1:00 PM
[2020-04-03] MEDS ORDERED: FUROSEMIDE 40 MG/4 ML VIAL IV STA (13:04)
--- NOTE | 2020-04-03 13:24 | History & Physical Report ---
Date of Service April 03, 2020 Assessment & Plan (1) Chest pain: (2) Acute on chronic heart failure with preserved ejection fraction (HFpEF): This is an 85-year-old female who has significant past medical history of permanent A. 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 In ED patient was hypertensive, tachycardic and tachypneic. Upon admission she does meet SIRS criteria. Lab work notable for leukocytosis 12.10k., H&H 11.0 and 35.7, platelet 202, BUN 17, creatinine 1.16, troponin 0.025, dig 0.9. Chest x-ray Left basilar opacities likely atelectasis, possible trace pleural effusion. CTA chest performed and revealed Suspected mild pulmonary edema with bilateral pleural effusions, bibasilar opacities likely atelectatic, no evidence of PE. In ED she received IV Levaquin, IV Zosyn and a 1 inch nitro paste was placed. pt with severe b/l lower ext lymphedema, apparent weight gain 77.3kg (EPIC on 04/02) 72.12kg (02/15/20), and today 84kg obtain standing weight when pt arrives to unit lasix IV 40mg BID17 daily weights, strict I and O heart healthy, low Na diet [place] [facility] [place] done 01[place]19/2020 which revealed EF 55 to 60%, biatrial enlargement, status post TAVR (3) Atrial fibrillation, permanent: Patient with permanent atrial fibrillation and has declined anticoagulation in the past Presents today with RVR. Likely in setting of decompensated CHF Previously had been on metoprolol in the past, but was discontinued secondary to hypotension during previous hospitalization. [facility] bid - will hold this currently Lopressor IV 5 mg prn HR > 110, Continue digoxin Consult [place] [facility] [place] (4) SIRS (systemic inflammatory response syndrome): pt met SIRS criteria on admission with leukocytosis, tachycardia and tachypnea Lactic acid WNL, pro wenceslao WNL Obtain urinalysis, blood cultures pending She received empiric IV Levaquin and zosyn in ED SIRS likely in setting of decompensated CHF and less likely infectious, await urine/blood cultures avoid any further antibiotics at this time given pt recurrent cdiff hx (5) Coronary artery disease: plan as above continue statin Pt previously on ASA at recommendation [place] [facility] [place] do not see this on pt current med list and listed as allergy in EPIC Current h/h and platelet stable will defer resuming ASA to cardiology (6) Hypertension: Blood pressure elevated, likely in setting of volume overload Treat with IV Lasix, received nitro paste in ED Monitor (7) C. difficile diarrhea: Recurrent C. difficile Follows [facility] GI Contact precautions Continue vancomycin 125 mg daily for suppression (8) Atelectasis: encourage incentive spirometry (9) S/P TAVR (transcatheter aortic valve replacement): 2/2 to severe follows [facility] [place] (10) Dyslipidemia: Continue statin (11) CKD (chronic kidney disease) stage 3, GFR 30-59 ml/min: Baseline creatinine 1.3-1.5 BUN/creatinine stable at 17/1.16 Monitor with diuresis (12) DVT prophylaxis: SQ Heparin Disposition: admit to tele Follow up: PCP Shey Pena PA-C upon discharge Pt was seen and examined in collaboration with Dr. Lindo, please see addendum History of Present Illness Chief Complaint: Chest pain x1 day. Primary Care Provider: [facility] This is an 85-year-old female who has significant past medical history of permanent A. 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 Of significance patient recently hospitalized at [facility] 03/31 to 04/02 secondary to ambulatory dysfunction and weakness. Symptoms felt to be secondary to dehydration, home Demadex was held, she received IV fluid, PT OT evaluation who recommended acute rehab. [facility]. She had a negative COVID screen prior to discharge. She states last evening she developed substernal chest discomfort, described as a, "ache," nonradiating, occurred at rest, would wax and wane, "felt like elephant on chest." Pain persisted throughout evening and she received 2 sublingual nitro prior to arrival. This resolved her chest disco mfort. She further elicits associated shortness of breath at rest, dry cough and weakness. She does have diarrhea approximately 5 episodes a day in conjunction with her recurrent C. difficile. She denies any recent fever, chills, sweats, lightheadedness, dizziness, syncope, palpitations, hemoptysis, nausea, vomiting, abdominal pain. Overall decreased appetite which is normal per patient. She does have severe bilateral lower extremity lymphedema and is unsure if her legs are more swollen than usual. She is unsure if she is had any weight gain or weight loss. In ED patient was hypertensive, tachycardic and tachypneic. Upon admission she does meet SIRS criteria. Lab work notable for leukocytosis 12.10k., H&H 11.0 and 35.7, platelet 202, BUN 17, creatinine 1.16, troponin 0.025, dig 0.9. Chest x-ray Left basilar opacities likely atelectasis, possible trace pleural effusion. CTA chest performed and revealed Suspected mild pulmonary edema with bilateral pleural effusions, bibasilar opacities likely atelectatic, no evidence of PE. In ED she received IV Levaquin, IV Zosyn and a 1 inch nitro paste was placed. Allergies Allergy/AdvReac Type Severity Reaction Status Date / Time milk AdvReac Mild Diarrhea Verified 04/03/20 11:45 Home Medications Home Medications Medication Instructions Recorded Confirmed Type albuterol sulfate 2 inh INHALATION Q6 PRN 10/15/19 04/03/20 History atorvastatin 40 mg PO QAM 10/15/19 04/03/20 History bisacodyl 10 mg [place] DAILY PRN 10/15/19 04/03/20 History cholecalciferol (vitamin D3) 1,000 unit PO DAILY 10/15/19 04/03/20 History [Vitamin D3] docusate sodium 100 mg PO BID PRN 10/15/19 04/03/20 History melatonin 3 mg PO HS PRN 10/15/19 04/03/20 History polyethylene glycol 3350 [Miralax] 17 g PO DAILY PRN 10/15/19 04/03/20 History potassium chloride 10 meq PO BID 10/15/19 04/03/20 History torsemide 20 mg PO DAILY 10/15/19 04/03/20 History digoxin 125 mcg (0.125 mg) tablet 125 mcg PO MOWEFR #28 tab 11/08/19 04/03/20 Rx ferrous sulfate 325 mg (65 mg 325 mg PO BID 02/08/20 04/03/20 History iron) tablet,delayed release multivitamin 1 tab PO DAILY 02/08/20 04/03/20 History acetaminophen 325 mg PO Q8 PRN 03/29/20 04/03/20 History heparin (porcine) 5,000 unit SUBCUT Q8H 04/03/20 04/03/20 History metoprolol tartrate 25 mg PO BID 04/03/20 04/03/20 History nitroglycerin 0.4 mg SUBLINGUAL UD PRN 04/03/20 04/03/20 History pantoprazole 40 mg PO QAM 04/03/20 04/03/20 History vancomycin 125 mg PO DAILY 04/03/20 04/03/20 History Past Med/Surg History Medical History (Updated 04/03/20 @ 13:56 by Elidia Curtis PA-C) Atrial fibrillation, permanent C. difficile diarrhea CKD (chronic kidney disease) stage 3, GFR 30-59 ml/min Coronary artery disease Dyslipidemia Hypertension Lymphedema of both lower extremities Multiple intracardiac shunts PFO (patent foramen ovale) Pseudoaneurysm Sepsis Severe aortic stenosis Surgical History H/O tooth extraction History of esophagogastroduodenoscopy (EGD) History of tonsillectomy and adenoidectomy S/P TAVR (transcatheter aortic valve replacement) Family History Father Cancer Social History Smoking Status: Never smoker Hx Alcohol Use: No Hx Substance Use: No Preferred Language: Singaporean Communication Ability: Effective Log Brander Required: No Beliefs That Will Affect Care: None Current Living Situation: Rehab Current Living Situation Comment: [facility] Other Information That Helps Us Care for You: No Feels Safe at Home: Yes Safety Concerns: Feels Safe At This Time Assistive Devices: Glasses and Walker Review of Systems Review of Systems: All systems reviewed & are unremarkable except as noted in HPI & below Results & Data Results & Data ([facility]) Vital Signs (Past 12 Hours) Vital Signs Temp Pulse Resp BP Pulse Ox 04/03/20 13:01 90 28 H 174/98 H 93 04/03/20 12:00 93 H 25 H 148/87 H 94 04/03/20 11:30 97 H 27 H 153/82 H 94 04/03/20 11:22 98 H 28 H 159/100 H 95 04/03/20 10:36 93 04/03/20 10:15 135 H 24 161/80 H 94 04/03/20 10:10 37 C 105 H 27 H 161/80 H 94 Laboratory Results Short CBC 04/03/20 Range/Units 10:22 WBC 12.10 H (4.8-10.8) K/uL Hgb 11.0 L (12.0-16.0) g/dL Hct 35.7 L (37-47) % Plt Count 202 (130-400) K/uL BMP 04/03/20 10:22 Sodium 142 Potassium 4.1 Chloride 109 H Carbon Dioxide 28 BUN 17 Creatinine 1.16 Glucose 109 H Calcium 8.6 Cardiac Enzymes 04/03/20 Range/Units 10:22 Total Creatine Kinase 69 (26-192) U/L CK-MB (CK-2) 1.5 (0.5-3.6) ng/ml Troponin I 0.025 (0-0.045) ng/ml Liver Function 04/03/20 Range/Units 10:22 Total Bilirubin 1.1 H (0.2-1) mg/dl AST 31 (15-37) U/L ALT 19 (12-78) U/L Alkaline Phosphatase 99 (45-117) U/L Albumin 2.3 L (3.4-5.0) gm/dl Diagnostic Findings Chest CTA: IMPRESSION: 1. No evidence of acute pulmonary embolism 2. Suspected mild pulmonary edema. Bilateral pleural effusions. 3. Bibasilar opacities likely atelectatic CXR: IMPRESSION: 1. Hiatal hernia 2. Left basilar opacities likely atelectatic 3. Subtle increased markings in the right upper lung zone. A minimal pneumonitis cannot be excluded. 4. Possible trace left pleural effusion Medications Administered Discontinued Medications Piperacillin Sod/Tazobactam Sod (Zosyn) 4.5 gm in 120 mls @ 240 mls/hr IV NOW ONE Stop: 04/03/20 12:18 Last Admin: 04/03/20 13:03 Dose: 240 mls/hr Documented by: [id number] Ioversol (Optiray 320 125ml) 118 ml IV ONCE ONE Stop: 04/03/20 12:46 Last Admin: 04/03/20 12:45 Dose: 118 ml Documented by: [id number] Nitroglycerin (Nitroglycerin 2% Ointment 30gm Tube) 1 inch EXT NOW STA Stop: 04/03/20 10:39 Last Admin: 04/03/20 11:26 Dose: 1 inch Documented by: [id number] ECG Rate (beats per minute): 118 Rhythm: atrial fibrillation Code Status & VTE Plan Code Status DNR VTE Prophylaxis Plan VTE Prophylaxis will be ordered: Yes Supervising Physician Co-Signing Physician Notes I saw this patient with the physician personnel security assistant, I participated in the history, physical, review of systems, and physical exam. I reviewed the medications with the patient and the physician personnel security assistant and helped reconcile the medications. I helped take a detailed family and social history as well. I formulated the assessment and plan personally with the physician personnel security assistant and went over it with the patient. Physical Exam Gen-AAO x 3, NAD, Afebrile Head-NCAT, EOMI, PERRLA, Anicteric Sclera, No Posterior Pharyngeal Erythema Neck-Supple, No JVD, No Thyromegaly, No Masses, No LAD, No Bruits Lungs-Clear to Auscultation Bilaterally, No Rales, No Rhonchi, No Wheezing, No Crepitus Chest-No S4, +S1, +S2, No S3, No Murmurs, No Rubs, No Gallops, No Ectopy Abdomen-Soft, Bowel Sounds Present, Non Tender, Non Distended, No Hepatomegaly, No Splenomegaly, No Palpable Masses, No Rebound, No Rigidity, No Guarding Musculoskeletal-Full Range of Motion Bilaterally, No CVAT Extremities-No Cyanosis, No Clubbing, No Edema Nuero-Cranial Nerves II-XII grossly intact, Motor WNL, DTRs WNL, Strength WNL, Non Focal Psych-Normal Mood
[2020-04-03 14:04] LABS: Thyroid Stimulating Hormone 1.16 uIu/ml (0.300-4.500)
[2020-04-03] MEDS ORDERED: ACETAMINOPHEN 325 MG TAB PO PRN (19:26)
[2020-04-03] MEDS ORDERED: ALBUTEROL HFA 8 GM INHALER INH PRN (19:26)
[2020-04-03] MEDS ORDERED: ALUMINUM/MAGNESIUM SUSP 30 ML UDC PO PRN (19:26)
[2020-04-03] MEDS ORDERED: METOPROLOL TARTRATE 1 MG/ML VIAL IV PRN (19:26)
[2020-04-03] MEDS ORDERED: POLYETHYLENE (MIRALAX) 17 GM PACK PO PRN (19:26)
[2020-04-03] MEDS ORDERED: FUROSEMIDE 40 MG/4 ML VIAL IV SCH (19:26)
[2020-04-03] MEDS ORDERED: MAGNESIUM HYDROXIDE SUSP 30 ML UDC PO PRN (19:26)
[2020-04-03] MEDS ORDERED: ONDANSETRON INJ 2 MG/ML 2 ML VIAL IV PRN (19:26)
[2020-04-03] MEDS: POTASSIUM CHLORIDE 10 MEQ TABCR PO SCH (20:11)
[2020-04-03] MEDS: FERROUS SULFATE 325 MG TAB PO SCH (20:12)
[2020-04-03] MEDS: DIGOXIN 0.125 MG TAB PO SCH (20:12)
[2020-04-03] MEDS: HEPARIN SOD 5,000 UNIT/0.5 ML VIAL SQ SCH (20:13)
[2020-04-03] MEDS: FUROSEMIDE 40 MG in SYRINGE 0 ML IV SCH (20:24)
[2020-04-04 00:20] LABS: Appearance Urine Clear (Clear); Bilirubin Urine Negative (Negative); Blood Urine Trace (Negative); Color Urine Yellow; Epithelial Cell Urine Auto >30 /lpf (0-5); Glucose Urine UA Negative (Negative); Ketones Urine Negative (Negative); Leukocyte Esterase Urine Trace (Negative); Nitrite Urine Negative (Negative); Protein Urine Negative (Negative); Urobilinogen Urine Negative (Negative); pH Urine 7.5 (4.5-7.5)
[2020-04-04 00:35] LABS: Bacteria Urine Automated 1+ (Negative)
[2020-04-04 00:36] LABS: RBC Urine Automated 0-4 /hpf (0-4)
[2020-04-04] MEDS: HEPARIN SOD 5,000 UNIT/0.5 ML VIAL SQ SCH ×3 (06:18→20:05)
--- NOTE | 2020-04-04 07:04 | Cardiology Consultation ---
Date of Consultation April 03, 2020 Assessment & Plan (1) Chest pain: At this point her chest pain does not seem to be ischemic although she has known coronary artery disease. With the duration of chest discomfort one would expect either positive enzymes or significant electrocardiographic changes (although her EKG is not normal). At this point I would recommend continued observation with trending of enzymes (2) Atrial fibrillation, permanent: She is in permanent atrial fibrillation with a generally well-controlled heart rate. She should be on anticoagulation but has declined in the past. (3) Coronary artery disease: She has known coronary artery disease based on recent catheterization prior to her TAVR, but it was not felt to require intervention at that time. It could have progressed but there is no clear evidence of ischemia at this time. I would not pursue further evaluation unless her enzymes trend upward significantly. (4) S/P TAVR (transcatheter aortic valve replacement): Based on exam and echocardiography in January her valve is functioning well. Given her presentation with possible sepsis I think an echocardiogram would be reasonable to look for evidence of endocarditis or LV dysfunction. History of Present Illness Reason for Consultation: Chest pain Attending Physician: Trevin Lindo DO History of Present Illness This is a 85-year-old woman who has a history of permanent atrial fibrillation for which she has declined anticoagulation in the past, aortic stenosis for which she has had valve replacement earlier this year, a PFO versus a small ASD which has been known for some time. She has cath proven coronary artery disease which was felt best treated medically at catheterization prior to her recent TAVR. She is on treatment for hyperlipidemia. Following her TAVR she had Pseudomonas bacteremia as well as a communication between the left atrium and the left ventricular outflow tract identified by transesophageal echocardiography. She was treated with 6 weeks of intravenous antibiotics but declined long-term suppressive therapy. She presented to the emergency room on April 03, 2020 with complaints of chest discomfort. She is somewhat vague about the symptoms but it apparently was continuous, it lasted for at least several hours but was relieved by nitroglycerin in the emergency room. Following initial emergency room evaluat ion she was pain-free. Initial evaluation in the emergency room was notable for no acute ischemic changes on electrocardiography and negative cardiac enzymes. At the time of my evaluation she was pain-free. Allergies Allergy/AdvReac Type Severity Reaction Status Date / Time milk AdvReac Mild Diarrhea Verified 04/03/20 11:45 Home Medications Home Medications Medication Instructions Recorded Confirmed Type albuterol sulfate 2 inh INHALATION Q6 PRN 10/15/19 04/03/20 History atorvastatin 40 mg PO QAM 10/15/19 04/03/20 History bisacodyl 10 mg [place] DAILY PRN 10/15/19 04/03/20 History cholecalciferol (vitamin D3) 1,000 unit PO DAILY 10/15/19 04/03/20 History [Vitamin D3] docusate sodium 100 mg PO BID PRN 10/15/19 04/03/20 History melatonin 3 mg PO HS PRN 10/15/19 04/03/20 History polyethylene glycol 3350 [Miralax] 17 g PO DAILY PRN 10/15/19 04/03/20 History potassium chloride 10 meq PO BID 10/15/19 04/03/20 History torsemide 20 mg PO DAILY 10/15/19 04/03/20 History digoxin 125 mcg (0.125 mg) tablet 125 mcg PO MOWEFR #28 tab 11/08/19 04/03/20 Rx ferrous sulfate 325 mg (65 mg 325 mg PO BID 02/08/20 04/03/20 History iron) tablet,delayed release multivitamin 1 tab PO DAILY 02/08/20 04/03/20 History acetaminophen 325 mg PO Q8 PRN 03/29/20 04/03/20 History heparin (porcine) 5,000 unit SUBCUT Q8H 04/03/20 04/03/20 History metoprolol tartrate 25 mg PO BID 04/03/20 04/03/20 History nitroglycerin 0.4 mg SUBLINGUAL UD PRN 04/03/20 04/03/20 History pantoprazole 40 mg PO QAM 04/03/20 04/03/20 History vancomycin 125 mg PO DAILY 04/03/20 04/03/20 History Patient History Medical History (Updated 04/04/20 @ 08:32 by Wisam Chatterjee MD) Atrial fibrillation, permanent C. difficile diarrhea CKD (chronic kidney disease) stage 3, GFR 30-59 ml/min Coronary artery disease Dyslipidemia Hypertension Lymphedema of both lower extremities Multiple intracardiac shunts PFO (patent foramen ovale) Pseudoaneurysm Sepsis Severe aortic stenosis Surgical History H/O tooth extraction History of esophagogastroduodenoscopy (EGD) History of tonsillectomy and adenoidectomy S/P TAVR (transcatheter aortic valve replacement) Family History Father Cancer Social History Smoking Status: Never smoker Hx Alcohol Use: No Hx Substance Use: No Preferred Language: Swedish Communication Ability: Effective Naphtha Washing System Operator Required: No Beliefs That Will Affect Care: None Current Living Situation: Rehab Current Living Situation Comment: [facility] Other Information That Helps Us Care for You: No Feels Safe at Home: Yes Safety Concerns: Feels Safe At This Time Assistive Devices: Walker Review of Systems Review of Systems: All systems reviewed & are unremarkable except as noted in HPI & below Physical Exam Physical Exam: Constitutional: Alert, cooperative and in no distress. HEENT: Unremarkable Neck: No jugular venous distention, carotid pulses are normal and equal bilaterally without bruits. Pulmonary: Clear to auscultation bilaterally. Cardiac: Irregular rhythm with a grade 2/6 holosystolic murmur along the left sternal border, no gallop or rub. Abdomen: Soft, nontender with normal bowel sounds. Extremities: +3 bilateral lymphedema. Distal pulses intact. Neurologic: No focal findings. Gait was not tested. Skin: No rash, ecchymoses or petechiae. Results & Data ([facility]) Vital Signs (Past 12 Hours) Vital Signs Temp Pulse Pulse Resp BP BP Pulse Ox 04/04/20 02:25 36.4 C L 93 H 19 167/81 H 94 04/04/20 00:54 98 H 04/03/20 23:06 36.7 C 96 H 17 164/94 H 94 Diagnostic Findings Electrocardiogram: An electrocardiogram done April 03, 2020 at 1010 showed atrial fibrillation with a heart rate of 118 bpm, nonspecific ST-T abnormalities. Telemetry: Atrial fibrillation with a controlled heart rate and PVCs PG Care Time/CCT Total # of Minutes Spent Total Time Spent with Patient: Total time spent is greater than 50% in coordination of care (as documented) at patient's floor/unit and/or counseling patient: Coding Level of Care Code 91047 Initial Inpt Care Lvl 3 Diagnoses Chest pain R07.9 Atrial fibrillation, permanent I48.21 Coronary artery disease I25.10 S/P TAVR (transcatheter aortic valve replacement) Z95.2
[2020-04-04 07:09] LABS: Basophils # (auto) 0.02 K/uL (0-0.2); Basophils % (auto) 0.2 %; Eosinophils # (auto) 0.19 K/uL (0-0.5); Eosinophils % (auto) 2.1 %; Hematocrit (blood only) 32.5 % (37-47); Hemoglobin 10.7 g/dL (12.0-16.0); Immature Granulocytes # (auto) 0.02 K/uL (0.00-0.02); Immature Granulocytes % (auto) 0.2 %; Lymphocytes # (auto) 1.48 K/uL (1.2-3.4); Lymphocytes % (auto) 16.1 %; Mean Corpuscular Hemoglobin 32.3 pg (25-34); Mean Corpuscular Hgb Conc 32.9 g/dL (32-36); Mean Corpuscular Volume 98.2 fL (80-100); Mean Platelet Volume 10.3 fL (7.4-10.4); Monocytes # (auto) 1.15 K/uL (0.11-0.59); Monocytes % (auto) 12.5 %; Neutrophils # (auto) 6.36 K/uL (1.4-6.5); Neutrophils % (auto) 68.9 %; Platelet Count 172 K/uL (130-400); RDW Coefficient of Variation 14.3 % (11.5-14.5); RDW Standard Deviation 51.2 fL (36.4-46.3); Red Blood Count 3.31 M/uL (4.2-5.4); White Blood Count 9.22 K/uL (4.8-10.8)
[2020-04-04 07:41] LABS: BUN Creatinine Ratio 14.6 (10-20); Calcium 8.7 mg/dl (8.5-10.1); Creatinine Clr Calc Pharmacy 34.4 ml/min; Est GFR (African American) 49.6; Est GFR (Non-African American) 42.8; Magnesium 1.9 mg/dl (1.8-2.4); Potassium 3.6 mmol/L (3.5-5.1)
[2020-04-04] MEDS: POTASSIUM CHLORIDE 10 MEQ TABCR PO SCH ×2 (08:23→20:05)
[2020-04-04] MEDS: RASPBERRY SYRUP 5 ML UDP PO SCH (08:23)
[2020-04-04] MEDS: PANTOprazole 40 MG TAB PO SCH (08:23)
[2020-04-04] MEDS: ATORVASTATIN 40 MG TAB PO SCH (08:23)
[2020-04-04] MEDS: MULTIVITAMIN TAB PO SCH (08:23)
[2020-04-04] MEDS: FERROUS SULFATE 325 MG TAB PO SCH ×2 (08:23→20:04)
[2020-04-04] MEDS: FUROSEMIDE 40 MG in SYRINGE 0 ML IV SCH ×2 (08:23→16:35)
[2020-04-04] MEDS: VANCOMYCIN HCL 125 MG/2.5ML SOLN PO SCH (08:23)
[2020-04-04] MEDS: CHOLECALCIFEROL 1,000 UNITS 25 MCG TAB PO SCH (08:23)
--- NOTE | 2020-04-04 11:08 | XCELERA ---
[id number]
[2020-04-04] MEDS ORDERED: MICONAZOLE NITRATE POWDER 43 GM EXT PRN (14:51)
--- NOTE | 2020-04-04 15:28 | Electrocardiogram Report ---
Test Reason : Blood Pressure : / mmHG Vent. Rate : 118 BPM Atrial Rate : 115 BPM P-R Int : 000 ms QRS Dur : 068 ms QT Int : 268 ms P-R-T Axes : 000 103 -80 degrees QTc Int : 375 ms Poor data quality, interpretation may be adversely affected Atrial fibrillation with rapid ventricular response Rightward axis Anteroseptal infarct (cited on or before 15-OCT-2019) Abnormal ECG When compared with ECG of 20-OCT-2019 10:34, Vent. rate has increased BY 45 BPM Confirmed by Carlos Sue ([id number]) on 04/04/2020 3:27:43 PM Referred By: REFERRED SELF Confirmed By:Carlos Sue
--- NOTE | 2020-04-04 16:07 | Hospitalist Progress Note ---
Date of Service April 04, 2020 Assessment & Plan (1) Chest pain: Denies any more pain and serial troponins have been negative EKG did not show any new changes Appreciate cardiology input and recommendation Echo showed: No discrete valvular vegetations or suggestion of endocarditis, LV systolic function is normal with EF 55 to 60%, left atrium is severely dilated and right atrium is moderately dilated, intra-atrial septum bows to the right and there is [id number] PFO, mild periprosthetic aortic regurgitation, severe concentric mitral regurgitation and RV ventricle systolic pressure is 30 to 40 mm of mercury No further cardiac studies (2) Acute on chronic heart failure with preserved ejection fraction (HFpEF): This is an 85-year-old female who has significant past medical history of permanent A. 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 Chest x-ray did not show any florid CHF CTA chest performed and revealed Suspected mild pulmonary edema with bilateral pleural effusions, bibasilar opacities likely atelectatic, no evidence of PE. She received IV Levaquin, IV Zosyn and a 1 inch nitro paste was placed Antibiotics were discontinued He has been getting Lasix 40 mg IV twice daily Bilateral extensive lymphedema pt with severe b/l lower ext lymphedema, apparent weight gain 77.3kg (EPIC on 04/02) 72.12kg (02/15/20), and today 84kg Getting Lasix IV 40mg BID17 Advised to elevate the legs while sleeping Sigmoid mass-CT scan on 03/29/2020 CT scan of the abdomen and pelvis on of this month as an outpatient showed 7 cm sigmoid mass-discussed with the daughter in detail Recent history of rectal bleed Aspirin has been discontinued following that and no more bleeding as per the daughter She will need to have a colonoscopy as an outpatient following discharge from past health Right superficial femoral pseudoaneurysm Has been under care of vascular surgery Planning to have a procedure as an outpatient down the line (3) Atrial fibrillation, permanent: Patient with permanent atrial fibrillation and has declined anticoagulation in the past Presents today with RVR. Likely in setting of decompensated CHF Previously had been on metoprolol in the past, but was discontinued secondary to hypotension during previous hospitalization. Metoprolol tartrate started at [facility] today 25mg bid -has been on hold Lopressor IV 5 mg prn HR > 110, Continue digoxin Consult cardiology - [facility] Will restart metoprolol (4) SIRS (systemic inflammatory response syndrome): pt met SIRS criteria on admission with leukocytosis, tachycardia and tachypnea Lactic acid WNL, pro wenceslao WNL Obtain urinalysis-urine culture is pending, Blood cultures -negative She received empiric IV Levaquin and zosyn in ED Does not have any pneumonia and/or other infection The biotics were discontinued (5) Coronary artery disease: plan as above continue statin Pt previously on ASA at recommendation of [facility] cardiology do not see this on pt current med list and listed as allergy in EPIC Current h/h and platelet stable will defer resuming ASA to cardiology (6) Hypertension: Blood pressure elevated, likely in setting of volume overload Treat with IV Lasix, received nitro paste in ED Monitor (7) C. difficile diarrhea: Recurrent C. difficile Follows [facility] Contact precautions Continue vancomycin 125 mg daily for suppression (8) Atelectasis: encourage incentive spirometry (9) S/P TAVR (transcatheter aortic valve replacement): 2/2 to severe follows [facility] Cardiology (10) Dyslipidemia: Continue statin (11) CKD (chronic kidney disease) stage 3, GFR 30-59 ml/min: Baseline creatinine 1.3-1.5 BUN/creatinine stable at 17/1.16 Monitor with diuresis (12) DVT prophylaxis: SQ Heparin Disposition: admit to tele Follow up: PCP Shey Pena PA-C upon discharge Discussed with the daughter in detailed We will get PT and OT evaluation Likely transfer back to [facility] in a day or 2 if there is no other issues. Admission and Anticipated Discharge Date Admission Date: April 03, 2020 Subjective 04/04/2020 The patient was seen and examined in medical telemetry unit She is an 85-year-old female with significant complicated past medical history as mentioned in H&P including A. fib, history of aortic stenosis status post TAVR, history of Pseudomonas endocarditis, CKD stage III and bilateral lymphedema was admitted today with chest pain from [facility]. She denies any more chest pain or associated cardiac symptoms this morning He denies any other significant symptoms Remains generally weak and lethargic Review of Systems Review of Systems: All systems reviewed and are unremarkable except as noted below Cardiovascular: no chest pain, no dyspnea, no orthopnea and no palpitations Musculoskeletal: no back pain, no neck pain and no joint pain Neurologic: + generalized weakness Physical Exam Physical Exam: Lying in bed comfortably Constitutional: well developed, well nourished and + obese; no acute distress and not ill appearing Eyes: PERRL, conjunctivae normal, anicteric sclerae ENMT: external ear and nose normal, oropharynx normal Neck: trachea midline, no thyromegaly Respiratory: normal respiratory effort; no respiratory distress Auscultation: lungs clear to auscultation bilaterally Cardiovascular: Rate/Rhythm: + abnormal rate and + abnormal rhythm Heart Sounds: + murmur (2/6 ejection systolic murmur over precordium) Extremities: + edema (Has bilateral severe lymphedema.) Gastrointestinal (Abdomen): Inspection/Auscultation: abdomen normal to inspection and normal bowel sounds; abdomen not distended Percussion/Palpation: abdomen soft Musculoskeletal: No acute arthritis involving any joints Neurologic: moves all extremities; no focal motor deficits Psychiatric: A+Ox3, euthymic affect Lymphatic: no cervical or axillary lymphadenopathy Results & Data Results & Data ([facility]) Vital Signs (Past 12 Hours) Vital Signs Temp Pulse Resp BP Pulse Ox 04/04/20 15:10 36.4 C L 90 16 118/70 94 04/04/20 07:43 36.3 C L 84 16 130/79 95 Laboratory Results Short CBC 04/04/20 Range/Units 06:54 WBC 9.22 (4.8-10.8) K/uL Hgb 10.7 L (12.0-16.0) g/dL Hct 32.5 L (37-47) % Plt Count 172 (130-400) K/uL BMP 04/04/20 06:54 Sodium 143 Potassium 3.6 Chloride 106 Carbon Dioxide 30 BUN 17 Creatinine 1.17 Glucose 92 Calcium 8.7 Cardiac Enzymes 04/03/20 Range/Units 17:53 Troponin I < 0.015 (0-0.045) ng/ml Urine 04/03/20 Range/Units 23:00 Urine Color Yellow Urine Appearance Clear (Clear) Urine pH 7.5 (4.5-7.5) Ur Specific [place] 1.010 (1.000-1.030) Urine Protein Negative (Negative) Urine Glucose (UA) Negative (Negative) Medications Administered Current Inpatient Medications Acetaminophen (Acetaminophen 325 Mg Tab) 650 mg PO Q4H PRN PRN Reason: Pain or Fever Stop: 05/03/20 19:25 Al Hydrox/Mg Hydrox/Simethicone (Aluminum/Magnesium Susp 30 Ml Udc) 15 ml PO Q4H PRN PRN Reason: Dyspepsia Stop: 05/03/20 19:25 Albuterol (Albuterol Hfa 8 Gm Inhaler) 2 puffs INH Q6 PRN PRN Reason: Wheezing Stop: 05/03/20 19:25 Atorvastatin Calcium (Atorvastatin 40 Mg Tab) 40 mg PO QAM [facility] Stop: 05/04/20 08:59 Last Admin: 04/04/20 08:23 Dose: 40 mg Documented by: Digoxin (Digoxin 0.125 Mg Tab) 0.125 mg PO MoWeFr@1600 [facility] Stop: 05/03/20 19:25 Last Admin: 04/03/20 20:12 Dose: 0.125 mg Documented by: Ferrous Sulfate (Ferrous Sulfate 325 Mg Tab) 325 mg PO BID [facility] Stop: 05/03/20 20:59 Last Admin: 04/04/20 08:23 Dose: 325 mg Documented by: Heparin Sodium (Porcine) (Heparin Sod 5,000 Unit/0.5 Ml Vial) 5,000 units SQ Q8 [facility] Stop: 05/03/20 21:59 Last Admin: 04/04/20 13:46 Dose: 5,000 units Documented by: Furosemide 40 mg/ Syringe 4 mls @ 4 mls/min IV BID17 [facility] Stop: 05/03/20 19:36 Last Admin: 04/04/20 08:23 Dose: 4 mls/min Documented by: Magnesium Hydroxide (Magnesium Hydroxide Susp 30 Ml Udc) 30 ml PO Q12H PRN PRN Reason: Constipation Stop: 05/03/20 19:25 Metoprolol Tartrate (Metoprolol Tartrate 1 Mg/Ml Vial) 5 mg IV Q4H PRN PRN Reason: Tachycardia Stop: 05/03/20 19:25 Miconazole Nitrate (Miconazole Nitrate Powder 43 Gm) 1 appln EXT PRN PRN PRN Reason: Affected Skin Folds Stop: 05/04/20 14:50 Multivitamins (Multivitamin Tab) 1 tab PO DAILY [facility] Stop: 05/04/20 08:59 Last Admin: 04/04/20 08:23 Dose: 1 tab Documented by: Ondansetron HCl (Ondansetron Inj 2 Mg/Ml 2 Ml Vial) 4 mg IV Q6H PRN PRN Reason: Nausea Stop: 05/03/20 19:25 Pantoprazole Sodium (Pantoprazole 40 Mg Tab) 40 mg PO QAM [facility] Stop: 05/04/20 08:59 Last Admin: 04/04/20 08:23 Dose: 40 mg Documented by: Polyethylene Glycol (Polyethylene (Miralax) 17 Gm Pack) 17 gm PO DAILY PRN PRN Reason: Constipation Stop: 05/03/20 19:25 Potassium Chloride (Potassium Chloride 10 Meq Tabcr) 10 meq PO BID [facility] Stop: 05/03/20 20:59 Last Admin: 04/04/20 08:23 Dose: 10 meq Documented by: Raspberry (Raspberry Syrup 5 Ml Udp) 5 ml PO DAILY [facility] Stop: 04/18/20 08:59 Last Admin: 04/04/20 08:23 Dose: 5 ml Documented by: Vancomycin HCl (Vancomycin Hcl 125 Mg/2.5ml Soln) 125 mg PO DAILY [facility] Stop: 05/04/20 08:59 Last Admin: 04/04/20 08:23 Dose: 125 mg Documented by: Vitamin D (Cholecalciferol 1,000 Units 25 Mcg Tab) 1,000 units PO DAILY [facility] Stop: 05/04/20 08:59 Last Admin: 04/04/20 08:23 Dose: 1,000 units Documented by: (1) Chest pain Chest pain type: unspecified Qualified Code(s): R07.9 - Chest pain, unspecified
--- NOTE | 2020-04-04 16:28 | Cardiology Progress Note ---
Date of Service April 04, 2020 Assessment & Plan (1) Chest pain: At this point her chest pain does not seem to be ischemic although she has known coronary artery disease. With the duration of chest discomfort one would expect either positive enzymes or significant electrocardiographic changes (although her EKG is not normal). At this point I would (2) Atrial fibrillation, permanent: She is in permanent atrial fibrillation with a generally well-controlled heart rate. She should be on anticoagulation but has declined in the past. She may be willing to reconsider that now. If she does I would recommend Eliquis. (3) Coronary artery disease: She has known coronary artery disease based on recent catheterization prior to her TAVR, but it was not felt to require intervention at that time. It could have progressed but there is no clear evidence of ischemia at this time. I would not pursue further evaluation. (4) S/P TAVR (transcatheter aortic valve replacement): Based on exam and echocardiography her valve is functioning well. Admission and Anticipated Discharge Date Admission Date: April 03, 2020 Subjective She denies further chest discomfort. No cardiovascular complaints. Physical Exam Physical Exam: Constitutional: Alert, cooperative and in no distress. HEENT: Unremarkable Neck: No jugular venous distention, carotid pulses are normal and equal bilaterally without bruits. Pulmonary: Clear to auscultation bilaterally. Cardiac: Irregular rhythm with a grade 2/6 holosystolic murmur along the left sternal border, no gallop or rub. Abdomen: Soft, nontender with normal bowel sounds. Extremities: +3 bilateral lymphedema. Distal pulses intact. Neurologic: No focal findings. Gait was not tested. Skin: No rash, ecchymoses or petechiae. Results & Data ([facility]) Vital Signs (Past 12 Hours) Vital Signs Temp Pulse Pulse Resp BP Pulse Ox 04/04/20 16:05 78 04/04/20 15:10 36.4 C L 90 16 118/70 94 04/04/20 07:43 36.3 C L 84 16 130/79 95 Laboratory Results Cardiac Enzymes 04/03/20 Range/Units 17:53 Troponin I < 0.015 (0-0.045) ng/ml CBC 04/04/20 Range/Units 06:54 WBC 9.22 (4.8-10.8) K/uL RBC 3.31 L (4.2-5.4) M/uL Hgb 10.7 L (12.0-16.0) g/dL Hct 32.5 L (37-47) % Plt Count 172 (130-400) K/uL Neut # (Auto) 6.36 (1.4-6.5) K/uL Lymph # (Auto) 1.48 (1.2-3.4) K/uL [place] # (Auto) 1.15 H (0.11-0.59) K/uL Eos # (Auto) 0.19 (0-0.5) K/uL Baso # (Auto) 0.02 (0-0.2) K/uL Comprehensive Metabolic Panel 04/04/20 Range/Units 06:54 Sodium 143 (136-145) mmol/L Potassium 3.6 (3.5-5.1) mmol/L Chloride 106 (98-107) mmol/L Carbon Dioxide 30 (21-32) mmol/L BUN 17 (7-18) mg/dl Creatinine 1.17 (0.6-1.2) mg/dl Glucose 92 (70-99) mg/dl Calcium 8.7 (8.5-10.1) mg/dl Intake and Output 04/04/20 04/04/20 04/04/20 06:59 14:59 22:59 Intake Total 440 / 440 Output Total 9 / 2482 400 / 400 Balance -2078 / -1911 40 / 40 Intake: Oral 440 / 440 Output: Urine 1775 / 2175 400 / 400 Urine/Stool Mix 300 / 300 # Bowel Movements 4 / 7 Other: Other Intake Source sips # Unmeasured Voids 1 2 Diagnostic Findings Telemetry: Atrial fibrillation with heart rate 80 to 90 bpm. Echocardiogram: Normal left ventricular systolic function, left atrium is severely dilated. There is [id number] flow across the PFO, there is in left ventricular outflow tract to left atrial continuity as seen before PG Care Time/CCT Total # of Minutes Spent Total Time Spent with Patient: Total time spent is greater than 50% in coordination of care (as documented) at patient's floor/unit and/or counseling patient: Coding Level of Care Code 50452 Subseq Hosp Care Lvl 2 Diagnoses Chest pain R07.9 Chest pain type: unspecified Atrial fibrillation, permanent I48.21 Coronary artery disease I25.10 S/P TAVR (transcatheter aortic valve replacement) Z95.2 (1) Chest pain Chest pain type: unspecified Qualified Code(s): R07.9 - Chest pain, unspecified
[2020-04-05] MEDS: HEPARIN SOD 5,000 UNIT/0.5 ML VIAL SQ SCH ×3 (05:15→21:16)
[2020-04-05 07:13] LABS: Basophils # (auto) 0.02 K/uL (0-0.2); Basophils % (auto) 0.3 %; Eosinophils # (auto) 0.52 K/uL (0-0.5); Eosinophils % (auto) 7.1 %; Hematocrit (blood only) 32.7 % (37-47); Hemoglobin 10.4 g/dL (12.0-16.0); Immature Granulocytes # (auto) 0.02 K/uL (0.00-0.02); Immature Granulocytes % (auto) 0.3 %; Lymphocytes # (auto) 2.02 K/uL (1.2-3.4); Lymphocytes % (auto) 27.7 %; Mean Corpuscular Hemoglobin 31.5 pg (25-34); Mean Corpuscular Hgb Conc 31.8 g/dL (32-36); Mean Corpuscular Volume 99.1 fL (80-100); Monocytes # (auto) 1.03 K/uL (0.11-0.59); Monocytes % (auto) 14.1 %; Neutrophils # (auto) 3.69 K/uL (1.4-6.5); Neutrophils % (auto) 50.5 %; Platelet Count 193 K/uL (130-400); RDW Coefficient of Variation 14.4 % (11.5-14.5); RDW Standard Deviation 51.6 fL (36.4-46.3)
[2020-04-05 07:40] LABS: BUN Creatinine Ratio 11.3 (10-20); Calcium 8.5 mg/dl (8.5-10.1); Est GFR (African American) 35.3; Est GFR (Non-African American) 30.4; Magnesium 1.9 mg/dl (1.8-2.4); Phosphorus 2.9 mg/dl (2.5-4.9); Potassium 3.4 mmol/L (3.5-5.1)
[2020-04-05] MEDS: PANTOprazole 40 MG TAB PO SCH (09:11)
[2020-04-05] MEDS: ATORVASTATIN 40 MG TAB PO SCH (09:12)
[2020-04-05] MEDS: CHOLECALCIFEROL 1,000 UNITS 25 MCG TAB PO SCH (09:12)
[2020-04-05] MEDS: MULTIVITAMIN TAB PO SCH (09:12)
[2020-04-05] MEDS: POTASSIUM CHLORIDE 10 MEQ TABCR PO SCH ×2 (09:13→21:17)
[2020-04-05] MEDS: FERROUS SULFATE 325 MG TAB PO SCH ×2 (09:13→21:17)
[2020-04-05] MEDS: RASPBERRY SYRUP 5 ML UDP PO SCH (09:13)
[2020-04-05] MEDS: FUROSEMIDE 40 MG in SYRINGE 0 ML IV SCH (09:13)
[2020-04-05] MEDS: VANCOMYCIN HCL 125 MG/2.5ML SOLN PO SCH (09:14)
[2020-04-05] MEDS: DIGOXIN 0.125 MG TAB PO SCH (15:52)
--- NOTE | 2020-04-05 19:17 | Hospitalist Progress Note ---
Date of Service April 05, 2020 Assessment & Plan (1) Acute on chronic heart failure with preserved ejection fraction (HFpEF): She appears euvolemic on exam at this time. Holding any further diuretics to avoid worsening her acute kidney injury (2) Acute worsening of stage 3 chronic kidney disease: Likely secondary to overdiuresis in recent days. Baseline creatinine 0.8- 1 and is now 1.5. Trend BMP off Lasix in am. (3) Chest pain: No further cardiac work-up, chest pain is resolved. Continue medical management of CAD minus aspirin which is been stopped for hematochezia in previous weeks. (4) Mass of colon: Recent history of rectal bleeding and a sigmoid mass was seen on CT scan on 03/29/2020. Aspirin discontinued following hematochezia episode which has not persisted. She will require a colonoscopy however I question how likely she is to follow-up as she cannot even talk to me about her stools for that day and has significant memory issues. Will consult GI for assistance. (5) C. difficile diarrhea: She has a history of recurrent C. difficile colitis and follows with [facility] for this. She has persistent diarrhea approximately 4 times a day and is on contact precautions for now continue vancomycin 125 mg daily for suppression and recheck stool C. difficile. (6) Atrial fibrillation, permanent: Declines anticoagulation. Cardiology was consulted this admission. Metoprolol was added back in the form of Toprol-XL 25 daily. Continue monitoring. (7) SIRS (systemic inflammatory response syndrome): Met Sirs criteria on admission however no shemar infection is present and initial antibiotics were stopped. No further work-up as she no longer meet Sirs criteria. (8) Coronary artery disease: Stable, nonobstructive disease. No further work-up this admission per cardiology. Defer resuming aspirin to outpatient cardiology after definitive management of colon mass. (9) S/P TAVR (transcatheter aortic valve replacement): (10) DVT prophylaxis: Heparin DNR Disposition continue monitoring Morenita Lujan DO [facility] hospitalist. Admission and Anticipated Discharge Date Admission Date: April 03, 2020 Subjective Patient is an 85-year-old female presented to the ER with chest pain x 1 day. She had associated nausea and vomiting. Her chest pain was relieved with nitroglycerin. She came in from [facility] and she was admitted there from [facility]. She has a history of coronary artery disease. Heart rate was in the 130s, white blood cell count was 12, she met Sirs criteria and was admitted to the hospitalist service. BNP was 10,000. A CT angiogram of the chest revealed mild pulmonary edema and bilateral pleural effusions with no evidence of pulmonary embolism. Serial troponin was checked and negative. Her chest pain was considered nonischemic, however her EKG was not normal so continued observation was recommended. She does have permanent atrial fibrillation with a well-controlled heart rate but has declined anticoagulation in the past. She has known coronary artery disease based on recent catheterization prior to her TAVR but was felt not to require intervention at that time and cardiology recommended no further pursuit of cardiac evaluation at this time. Today she has had no further chest pain. She has continued to be diuresed with Lasix for acute heart failure. She has not had much output overnight but reports her legs feel less swollen. She does have chronic significant lymphedema bilaterally. Her creatinine is starting to go up so we will hold Lasix and discuss further with cardiology. Transthoracic echocardiogram revealed a dilated left atrium and dilated right atrium, a left to right flow across PFO with anterior atrial septum bowing to the right, a mild periprosthetic aortic regurgitation, severe eccentric mitral regurgitation and elevated right ventricular systolic pressure at 30 to 40 mmHg. There is no discrete valvular vegetation or suggestion of endocarditis. Left ventricular systolic function is normal. A CT scan performed on 03/29/2020 revealed a 7 cm sigmoid mass. There is a recent history of rectal bleeding however the patient cannot expound on this. Aspirin has been discontinued and she has not continued to have hematochezia per nursing notes. Again the patient cannot confirm or deny this. An outpatient colonoscopy will be recommended. The patient reports not having a colonoscopy performed in the past. Although the patient met Sirs criteria on admission with leukocytosis tachycardia and tachypnea her urine culture is negative, blood cultures are negative, she is clinically feeling and looking improved and does not appear to have any pneumonia or other infection at this time. The antibiotics were discontinued. The patient does have a history of recurrent C. difficile colitis and follows with [facility]. She is on contact precautions and continues on vancomycin 125 mg daily for suppression however, nursing reports reveals she is having multiple episodes of diarrhea a day up to 3 or 4. She denies any abdominal pain and is tolerating p.o. The patient denies any other symptoms at this time but is a very poor historian. Most information is gathered from the record. Review of Systems Review of Systems: All systems reviewed & are unremarkable except as noted in Subjective Physical Exam Physical Exam: CONSTITUTIONAL: obese, vitals as above, generally well- appearing EYES: normal conjunctivae, no scleral icterus ENT: external ear and nose normal, oropharynx clear, no TM abnormality, no maxillary or ethmoid sinus tenderness. Poor dentition. NECK: trachea midline, no lymphadenopathy, normal thyroid RESPIRATORY: clear to auscultation bilaterally, no crackles, rales or wheezes, normal respiratory effort CARDIOVASCULAR: regular rate and rhythm, S1 and 2 heard without murmurs, gallops or rubs, no JVD, no peripheral edema GASTROINTESTINAL: soft, nontender, nondistended MUSCULOSKELETAL: generalized weakness, head is normocephalic and atraumatic SKIN: warm and dry NEUROLOGIC: CN 2-12 grossly intact, no sensory deficit, normal cognition, normal speech PSYCHIATRIC: alert and cooperative. Significant memory loss. Results & Data Results & Data ([facility]) Vital Signs (Past 12 Hours) Vital Signs Temp Pulse Pulse Resp BP BP Pulse Ox 04/05/20 16:20 87 04/05/20 15:52 68 04/05/20 15:37 36.6 C 65 20 122/80 96 04/05/20 11:30 36.5 C 84 20 145/74 H 95 04/05/20 07:24 36.4 C L 106 H 20 127/74 96 Laboratory Results Short CBC 04/05/20 Range/Units 06:30 WBC 7.30 (4.8-10.8) K/uL Hgb 10.4 L (12.0-16.0) g/dL Hct 32.7 L (37-47) % Plt Count 193 (130-400) K/uL BMP 04/05/20 06:30 Sodium 141 Potassium 3.4 L Chloride 105 Carbon Dioxide 30 BUN 18 Creatinine 1.55 H D Glucose 94 Calcium 8.5 Medications Administered Current Inpatient Medications Acetaminophen (Acetaminophen 325 Mg Tab) 650 mg PO Q4H PRN PRN Reason: Pain or Fever Stop: 05/03/20 19:25 Al Hydrox/Mg Hydrox/Simethicone (Aluminum/Magnesium Susp 30 Ml Udc) 15 ml PO Q4H PRN PRN Reason: Dyspepsia Stop: 05/03/20 19:25 Albuterol (Albuterol Hfa 8 Gm Inhaler) 2 puffs INH Q6 PRN PRN Reason: Wheezing Stop: 05/03/20 19:25 Atorvastatin Calcium (Atorvastatin 40 Mg Tab) 40 mg PO QAM [facility] Stop: 05/04/20 08:59 Last Admin: 04/05/20 09:12 Dose: 40 mg Documented by: Digoxin (Digoxin 0.125 Mg Tab) 0.125 mg PO MoWeFr@1600 [facility] Stop: 05/03/20 19:25 Last Admin: 04/05/20 15:52 Dose: 0.125 mg Documented by: Ferrous Sulfate (Ferrous Sulfate 325 Mg Tab) 325 mg PO BID [facility] Stop: 05/03/20 20:59 Last Admin: 04/05/20 09:13 Dose: 325 mg Documented by: Heparin Sodium (Porcine) (Heparin Sod 5,000 Unit/0.5 Ml Vial) 5,000 units SQ Q8 [facility] Stop: 05/03/20 21:59 Last Admin: 04/05/20 13:52 Dose: 5,000 units Documented by: Furosemide 40 mg/ Syringe 4 mls @ 4 mls/min IV BID17 [facility] Stop: 05/03/20 19:36 Last Admin: 04/05/20 09:13 Dose: 4 mls/min Documented by: Magnesium Hydroxide (Magnesium Hydroxide Susp 30 Ml Udc) 30 ml PO Q12H PRN PRN Reason: Constipation Stop: 05/03/20 19:25 Metoprolol Tartrate (Metoprolol Tartrate 1 Mg/Ml Vial) 5 mg IV Q4H PRN PRN Reason: Tachycardia Stop: 05/03/20 19:25 Miconazole Nitrate (Miconazole Nitrate Powder 43 Gm) 1 appln EXT PRN PRN PRN Reason: Affected Skin Folds Stop: 05/04/20 14:50 Multivitamins (Multivitamin Tab) 1 tab PO DAILY [facility] Stop: 05/04/20 08:59 Last Admin: 04/05/20 09:12 Dose: 1 tab Documented by: Ondansetron HCl (Ondansetron Inj 2 Mg/Ml 2 Ml Vial) 4 mg IV Q6H PRN PRN Reason: Nausea Stop: 05/03/20 19:25 Pantoprazole Sodium (Pantoprazole 40 Mg Tab) 40 mg PO QAM [facility] Stop: 05/04/20 08:59 Last Admin: 04/05/20 09:11 Dose: 40 mg Documented by: Polyethylene Glycol (Polyethylene (Miralax) 17 Gm Pack) 17 gm PO DAILY PRN PRN Reason: Constipation Stop: 05/03/20 19:25 Potassium Chloride (Potassium Chloride 10 Meq Tabcr) 10 meq PO BID [facility] Stop: 05/03/20 20:59 Last Admin: 04/05/20 09:13 Dose: 10 meq Documented by: Raspberry (Raspberry Syrup 5 Ml Udp) 5 ml PO DAILY [facility] Stop: 04/18/20 08:59 Last Admin: 04/05/20 09:13 Dose: 5 ml Documented by: Vancomycin HCl (Vancomycin Hcl 125 Mg/2.5ml Soln) 125 mg PO DAILY [facility] Stop: 05/04/20 08:59 Last Admin: 04/05/20 09:14 Dose: 125 mg Documented by: Vitamin D (Cholecalciferol 1,000 Units 25 Mcg Tab) 1,000 units PO DAILY [facility] Stop: 05/04/20 08:59 Last Admin: 04/05/20 09:12 Dose: 1,000 units Documented by: (1) Chest pain Chest pain type: unspecified Qualified Code(s): R07.9 - Chest pain, unspecified
[2020-04-06] MEDS: HEPARIN SOD 5,000 UNIT/0.5 ML VIAL SQ SCH ×3 (05:48→21:09)
[2020-04-06 07:05] LABS: Hematocrit (blood only) 32.4 % (37-47); Hemoglobin 10.6 g/dL (12.0-16.0); Mean Corpuscular Hemoglobin 32.6 pg (25-34); Mean Corpuscular Hgb Conc 32.7 g/dL (32-36); Mean Corpuscular Volume 99.7 fL (80-100); Mean Platelet Volume 10.9 fL (7.4-10.4); Platelet Count 218 K/uL (130-400); RDW Coefficient of Variation 14.5 % (11.5-14.5); RDW Standard Deviation 51.9 fL (36.4-46.3); Red Blood Count 3.25 M/uL (4.2-5.4)
[2020-04-06 07:34] LABS: BUN Creatinine Ratio 16.1 (10-20); Calcium 8.5 mg/dl (8.5-10.1); Est GFR (African American) 36.1; Est GFR (Non-African American) 31.2; Magnesium 1.8 mg/dl (1.8-2.4); Potassium 3.8 mmol/L (3.5-5.1)
[2020-04-06] MEDS: VANCOMYCIN HCL 125 MG/2.5ML SOLN PO SCH (07:53)
[2020-04-06] MEDS: RASPBERRY SYRUP 5 ML UDP PO SCH (07:53)
[2020-04-06] MEDS: FERROUS SULFATE 325 MG TAB PO SCH ×2 (07:53→21:09)
[2020-04-06] MEDS: CHOLECALCIFEROL 1,000 UNITS 25 MCG TAB PO SCH (07:54)
[2020-04-06] MEDS: POTASSIUM CHLORIDE 10 MEQ TABCR PO SCH ×2 (07:54→21:09)
[2020-04-06] MEDS: ATORVASTATIN 40 MG TAB PO SCH (07:54)
[2020-04-06] MEDS: PANTOprazole 40 MG TAB PO SCH (07:54)
[2020-04-06] MEDS: MULTIVITAMIN TAB PO SCH (07:54)
--- NOTE | 2020-04-06 12:28 | Cardiology Progress Note ---
Date of Service April 06, 2020 Assessment & Plan (1) Atrial fibrillation, permanent: (2) Severe aortic stenosis: (3) S/P TAVR (transcatheter aortic valve replacement): (4) Coronary artery disease: (5) Hypertension: (6) Lymphedema of both lower extremities: (7) Azotemia: (8) Chest pain: (9) Paroxysmal ventricular tachycardia: (10) Multiple intracardiac shunts: ASSESSMENT/PLAN: 1. Permanent atrial fibrillation: Heart rate is reasonably controlled. Recommend metoprolol succinate 25 mg daily. She had been on metoprolol that was discontinued during a previous hospitalization for hypotension. Previous hospitalizations have often been related to infection and hypovolemia /dehydration, and thus beta-juanita is not contraindicated. She has refused anticoagulation therapy. 2. Aortic stenosis s/p TAVR: Continue to follow-up as an outpatient. 3. CAD: She presented with chest discomfort, with negative troponin. She has documented CAD which is being treated medically. She has not had any further chest discomfort. Recommend beta-juanita as above which should help medically manage her underlying CAD. 81 mg daily but had recent rectal bleeding and has a 7 cm sigmoid mass per hospitalist. If safe from a bleeding standpoint, would recommend aspirin 81 mg daily. If not, would recommend further evaluation and treatment as appropriate of her underlying sigmoid mass/rectal bleeding. Continue high-intensity statin therapy. 4. Chest pain: Chest pain has not recurred. Beta-juanita as above as she does have underlying CAD. 5. Lymphedema: She presented with chest discomfort and AFib with RVR. She was given intravenous diuretics and became azotemic. Diuretics have since been on hold. According to records, she was recently seen at [facility] with dehydration and received IV fluids while holding diuretic. If she was hypervolemic on presentation, this would be consistent with iatrogenic hypervolemia as her diuretic was on hold and she recently received IV fluids just a day or 2 prior to presentation. Would recommend resuming her home dose of torsemide or equivalent dose of Lasix in the next 1-2 days as appropriate. 6. Hypertension: Blood pressure reasonably controlled. Adding beta-juanita as above. 7. Paroxysmal ventricular tachycardia: Asymptomatic. Beta-juanita as above. 8. Disposition: Cardiology will sign off at this time. Please call with any other questions or concerns. Admission and Anticipated Discharge Date Admission Date: April 03, 2020 Subjective Patient was seen earlier this morning. She denies any chest discomfort. She states that her breathing is back to baseline and denies shortness of breath, syncope, near-syncope, palpitations. She believes that her edema has improved. She is hoping to be discharged today. Review of systems: As above. Physical Exam Physical Exam: Gen.: No acute distress. Alert. HEENT: Anicteric sclera. Neck: No JVD. Cardiac: PMI was nonpalpable. No ventricular heave. Irregularly irregular. Normal rate. Normal S1, S2. 2/6 murmur heard throughout. No rubs or gallops. Pulmonary: Clear to auscultation bilaterally without wheezes, rales, or rhonchi. Abdomen: Soft, nontender, nondistended, with normoactive bowel sounds. No bruits noted. Extremities: 2+ radial pulses bilaterally. Significant bilateral lower extremity lymphedema noted (chronic). No significant pitting edema. No cyanosis. Psychiatric: Affect appears appropriate. Results & Data ([facility]) Vital Signs (Past 12 Hours) Vital Signs Temp Pulse Pulse Resp BP Pulse Ox 04/06/20 11:43 36.6 C 97 H 18 126/83 90 04/06/20 08:36 99 H 04/06/20 07:37 36.8 C 105 H 18 109/65 95 04/06/20 03:00 36.8 C 97 H 18 131/79 97 04/06/20 00:47 89 Intake & Output 04/04/20 04/05/20 04/06/20 04/07/20 06:59 06:59 06:59 06:59 Intake Total 570 / 570 815 / 815 460 / 460 Output Total 2482 / 2482 1001 / 1001 255 / 255 Balance -191 / -191 -186 / -186 205 / 205 Weight 84 kg 69.7 kg Laboratory Results Laboratory Results - last 24 hr 04/06/20 04/06/20 06:40 06:40 WBC 7.70 RBC 3.25 L Hgb 10.6 L Hct 32.4 L MCV 99.7 MCH 32.6 MCHC 32.7 RDW Std Deviation 51.9 H RDW Coeff of Vanita 14.5 Plt Count 218 MPV 10.9 H Sodium 144 Potassium 3.8 Chloride 107 Carbon Dioxide 29 Anion Gap 8.0 BUN 24 H Creatinine 1.52 H Est Cr Clr Drug Dosing 24.0 Est GFR ( Amer) 36.1 Est GFR (Non-Af Amer) 31.2 BUN/Creatinine Ratio 16.1 Glucose 91 Calcium 8.5 Magnesium 1.8 Diagnostic Findings Telemetry personally reviewed: Predominantly atrial fibrillation with reasonable heart rate control. There was a 7 beat run of ventricular tachycardia this morning and a 4 beat run prior. Medications Administered Current Inpatient Medications Acetaminophen (Acetaminophen 325 Mg Tab) 650 mg PO Q4H PRN PRN Reason: Pain or Fever Stop: 05/03/20 19:25 Al Hydrox/Mg Hydrox/Simethicone (Aluminum/Magnesium Susp 30 Ml Udc) 15 ml PO Q4H PRN PRN Reason: Dyspepsia Stop: 05/03/20 19:25 Albuterol (Albuterol Hfa 8 Gm Inhaler) 2 puffs INH Q6 PRN PRN Reason: Wheezing Stop: 05/03/20 19:25 Atorvastatin Calcium (Atorvastatin 40 Mg Tab) 40 mg PO QAM [facility] Stop: 05/04/20 08:59 Last Admin: 04/06/20 07:54 Dose: 40 mg Documented by: Digoxin (Digoxin 0.125 Mg Tab) 0.125 mg PO [id number] [facility] Stop: 05/03/20 19:25 Last Admin: 04/05/20 15:52 Dose: 0.125 mg Documented by: Ferrous Sulfate (Ferrous Sulfate 325 Mg Tab) 325 mg PO BID [facility] Stop: 05/03/20 20:59 Last Admin: 04/06/20 07:53 Dose: 325 mg Documented by: Heparin Sodium (Porcine) (Heparin Sod 5,000 Unit/0.5 Ml Vial) 5,000 units SQ Q8 [facility] Stop: 05/03/20 21:59 Last Admin: 04/06/20 05:48 Dose: 5,000 units Documented by: Furosemide 40 mg/ Syringe 4 mls @ 4 mls/min IV [id number] [facility] Stop: 05/03/20 19:36 Last Admin: 04/05/20 09:13 Dose: 4 mls/min Documented by: Magnesium Hydroxide (Magnesium Hydroxide Susp 30 Ml Udc) 30 ml PO Q12H PRN PRN Reason: Constipation Stop: 05/03/20 19:25 Metoprolol Tartrate (Metoprolol Tartrate 1 Mg/Ml Vial) 5 mg IV Q4H PRN PRN Reason: Tachycardia Stop: 05/03/20 19:25 Miconazole Nitrate (Miconazole Nitrate Powder 43 Gm) 1 appln EXT PRN PRN PRN Reason: Affected Skin Folds Stop: 05/04/20 14:50 Multivitamins (Multivitamin Tab) 1 tab PO DAILY [facility] Stop: 05/04/20 08:59 Last Admin: 04/06/20 07:54 Dose: 1 tab Documented by: Ondansetron HCl (Ondansetron Inj 2 Mg/Ml 2 Ml Vial) 4 mg IV Q6H PRN PRN Reason: Nausea Stop: 05/03/20 19:25 Pantoprazole Sodium (Pantoprazole 40 Mg Tab) 40 mg PO QAM [facility] Stop: 05/04/20 08:59 Last Admin: 04/06/20 07:54 Dose: 40 mg Documented by: Polyethylene Glycol (Polyethylene (Miralax) 17 Gm Pack) 17 gm PO DAILY PRN PRN Reason: Constipation Stop: 05/03/20 19:25 Potassium Chloride (Potassium Chloride 10 Meq Tabcr) 10 meq PO BID [facility] Stop: 05/03/20 20:59 Last Admin: 04/06/20 07:54 Dose: 10 meq Documented by: Raspberry (Raspberry Syrup 5 Ml Udp) 5 ml PO DAILY [facility] Stop: 04/18/20 08:59 Last Admin: 04/06/20 07:53 Dose: 5 ml Documented by: Vancomycin HCl (Vancomycin Hcl 125 Mg/2.5ml Soln) 125 mg PO DAILY [facility] Stop: 05/04/20 08:59 Last Admin: 04/06/20 07:53 Dose: 125 mg Documented by: Vitamin D (Cholecalciferol 1,000 Units 25 Mcg Tab) 1,000 units PO DAILY [facility] Stop: 05/04/20 08:59 Last Admin: 04/06/20 07:54 Dose: 1,000 units Documented by: PG Care Time/CCT Total # of Minutes Spent Total Time Spent with Patient: Total time spent is greater than 50% in coordination of care (as documented) at patient's floor/unit and/or counseling patient: Coding Level of Care Code 71188 Subseq Hosp Care Lvl 3 Diagnoses Atrial fibrillation, permanent I48.21 Severe aortic stenosis I35.0 S/P TAVR (transcatheter aortic valve replacement) Z95.2 Coronary artery disease I25.10 Hypertension I10 Lymphedema of both lower extremities I89.0 Azotemia R79.89 Chest pain R07.9 Chest pain type: unspecified Paroxysmal ventricular tachycardia I47.2 Multiple intracardiac shunts Q24.9 (1) Chest pain Chest pain type: unspecified Qualified Code(s): R07.9 - Chest pain, unspecified
[2020-04-06] MEDS: METOPROLOL SUCC 25MG EXT REL TAB PO SCH (13:36)
--- NOTE | 2020-04-06 21:53 | Hospitalist Progress Note ---
Date of Service April 06, 2020 Assessment & Plan (1) Chest pain: No further cardiac work-up, chest pain is resolved. Continue medical management of CAD minus aspirin which is been stopped for hematochezia in previous weeks. (2) Acute on chronic heart failure with preserved ejection fraction (HFpEF): She appears euvolemic on exam at this time. Holding any further diuretics to avoid worsening her acute kidney injury which is still present. Per Cardiology, instead on continuing to hold diuretics on discharge which might lead to noncompliance and readmission, will continue to monitor in the hospital for now (3) Mass of colon: Recent history of rectal bleeding and a sigmoid mass was seen on CT scan on 03/29/2020. Aspirin discontinued following hematochezia episode which has not persisted. She will require a colonoscopy however I question how likely she is to follow-up as she cannot even talk to me about her stools for that day and has significant memory issues. Will consult GI for assistance in am. (4) C. difficile diarrhea: She has a history of recurrent C. difficile colitis and follows with [facility] for this. She has persistent diarrhea approximately 4 times a day and is on contact precautions for now continue vancomycin 125 mg daily for suppression and recheck stool C. difficile. (5) Atrial fibrillation, permanent: Declines anticoagulation. Cardiology was consulted this admission. Metoprolol was added back in the form of Toprol-XL 25 daily. Continue monitoring. Of note she did have 29 beats of nonsustained V. tach overnight on telemetry. With a normal ejection fraction, there is not any further work-up for this. Cont Toprol and keep lytes replaced. (6) Coronary artery disease: Stable, nonobstructive disease. No further work-up this admission per cardiology. Defer resuming aspirin to outpatient cardiology after definitive management of colon mass. (7) S/P TAVR (transcatheter aortic valve replacement): (8) Acute worsening of stage 3 chronic kidney disease: Likely secondary to overdiuresis in recent days. Baseline creatinine 0.8- 1 and remains 1.5 today. Cont to trend BMP off Lasix in am. (9) DVT prophylaxis: Heparin DNR Disposition continue monitoring [facility]. Admission and Anticipated Discharge Date Admission Date: April 03, 2020 Subjective She is feeling well today without any chest pain. She did not report this but per the nurse she had 2 episodes of diarrhea today. She denies any abdominal pain and is tolerating p.o. She continues to refuse to move out of the bed per nursing staff although she is not bedbound and came from a rehab facility. Review of Systems Review of Systems: All systems reviewed & are unremarkable except as noted in Subjective Physical Exam Physical Exam: CONSTITUTIONAL: obese, vitals as above, generally well- appearing EYES: normal conjunctivae, no scleral icterus ENT: external ear and nose normal, oropharynx clear, no TM abnormality, no maxillary or ethmoid sinus tenderness. Poor dentition. NECK: trachea midline, no lymphadenopathy, normal thyroid RESPIRATORY: clear to auscultation bilaterally, no crackles, rales or wheezes, normal respiratory effort CARDIOVASCULAR: regular rate and rhythm, S1 and 2 heard without murmurs, gallops or rubs, no JVD, no peripheral edema GASTROINTESTINAL: soft, nontender, nondistended MUSCULOSKELETAL: generalized weakness, head is normocephalic and atraumatic SKIN: warm and dry NEUROLOGIC: CN 2-12 grossly intact, no sensory deficit, normal cognition, normal speech PSYCHIATRIC: alert and cooperative. Significant memory loss. Results & Data Results & Data ([facility]) Vital Signs (Past 12 Hours) Vital Signs Temp Pulse Pulse Resp BP Pulse Ox 04/06/20 19:56 36.7 C 73 18 117/69 95 04/06/20 16:32 97 H 04/06/20 15:32 36.5 C 94 H 20 140/87 95 04/06/20 11:43 36.6 C 97 H 18 126/83 90 Laboratory Results Short CBC 04/06/20 Range/Units 06:40 WBC 7.70 (4.8-10.8) K/uL Hgb 10.6 L (12.0-16.0) g/dL Hct 32.4 L (37-47) % Plt Count 218 (130-400) K/uL BMP 04/06/20 06:40 Sodium 144 Potassium 3.8 Chloride 107 Carbon Dioxide 29 BUN 24 H Creatinine 1.52 H Glucose 91 Calcium 8.5 Medications Administered Current Inpatient Medications Acetaminophen (Acetaminophen 325 Mg Tab) 650 mg PO Q4H PRN PRN Reason: Pain or Fever Stop: 05/03/20 19:25 Al Hydrox/Mg Hydrox/Simethicone (Aluminum/Magnesium Susp 30 Ml Udc) 15 ml PO Q4H PRN PRN Reason: Dyspepsia Stop: 05/03/20 19:25 Albuterol (Albuterol Hfa 8 Gm Inhaler) 2 puffs INH Q6 PRN PRN Reason: Wheezing Stop: 05/03/20 19:25 Atorvastatin Calcium (Atorvastatin 40 Mg Tab) 40 mg PO QAM [facility] Stop: 05/04/20 08:59 Last Admin: 04/06/20 07:54 Dose: 40 mg Documented by: Digoxin (Digoxin 0.125 Mg Tab) 0.125 mg PO [id number] [facility] Stop: 05/03/20 19:25 Last Admin: 04/05/20 15:52 Dose: 0.125 mg Documented by: Ferrous Sulfate (Ferrous Sulfate 325 Mg Tab) 325 mg PO BID [facility] Stop: 05/03/20 20:59 Last Admin: 04/06/20 21:09 Dose: 325 mg Documented by: Heparin Sodium (Porcine) (Heparin Sod 5,000 Unit/0.5 Ml Vial) 5,000 units SQ Q8 [facility] Stop: 05/03/20 21:59 Last Admin: 04/06/20 21:09 Dose: 5,000 units Documented by: Furosemide 40 mg/ Syringe 4 mls @ 4 mls/min IV [id number] [facility] Stop: 05/03/20 19:36 Last Admin: 04/05/20 09:13 Dose: 4 mls/min Documented by: Magnesium Hydroxide (Magnesium Hydroxide Susp 30 Ml Udc) 30 ml PO Q12H PRN PRN Reason: Constipation Stop: 05/03/20 19:25 Metoprolol Succinate (Metoprolol Succ 25mg Ext Rel Tab) [facility] Stop: 05/06/20 12:44 Last Admin: 04/06/20 13:36 Dose: 25 mg Documented by: Metoprolol Tartrate (Metoprolol Tartrate 1 Mg/Ml Vial) 5 mg IV Q4H PRN PRN Reason: Tachycardia Stop: 05/03/20 19:25 Miconazole Nitrate (Miconazole Nitrate Powder 43 Gm) 1 appln EXT PRN PRN PRN Reason: Affected Skin Folds Stop: 05/04/20 14:50 Multivitamins (Multivitamin Tab) 1 tab PO DAILY [facility] Stop: 05/04/20 08:59 Last Admin: 04/06/20 07:54 Dose: 1 tab Documented by: Ondansetron HCl (Ondansetron Inj 2 Mg/Ml 2 Ml Vial) 4 mg IV Q6H PRN PRN Reason: Nausea Stop: 05/03/20 19:25 Pantoprazole Sodium (Pantoprazole 40 Mg Tab) 40 mg PO QAM [facility] Stop: 05/04/20 08:59 Last Admin: 04/06/20 07:54 Dose: 40 mg Documented by: Polyethylene Glycol (Polyethylene (Miralax) 17 Gm Pack) 17 gm PO DAILY PRN PRN Reason: Constipation Stop: 05/03/20 19:25 Potassium Chloride (Potassium Chloride 10 Meq Tabcr) 10 meq PO BID [facility] Stop: 05/03/20 20:59 Last Admin: 04/06/20 21:09 Dose: 10 meq Documented by: Raspberry (Raspberry Syrup 5 Ml Udp) 5 ml PO DAILY [facility] Stop: 04/18/20 08:59 Last Admin: 04/06/20 07:53 Dose: 5 ml Documented by: Vancomycin HCl (Vancomycin Hcl 125 Mg/2.5ml Soln) 125 mg PO DAILY [facility] Stop: 05/04/20 08:59 Last Admin: 04/06/20 07:53 Dose: 125 mg Documented by: Vitamin D (Cholecalciferol 1,000 Units 25 Mcg Tab) 1,000 units PO DAILY [facility] Stop: 05/04/20 08:59 Last Admin: 04/06/20 07:54 Dose: 1,000 units Documented by: (1) Chest pain Chest pain type: unspecified Qualified Code(s): R07.9 - Chest pain, unspecified
[2020-04-07] MEDS: HEPARIN SOD 5,000 UNIT/0.5 ML VIAL SQ SCH ×3 (05:52→22:28)
[2020-04-07] MEDS: PANTOprazole 40 MG TAB PO SCH (09:15)
[2020-04-07] MEDS: POTASSIUM CHLORIDE 10 MEQ TABCR PO SCH ×2 (09:15→20:45)
[2020-04-07] MEDS: RASPBERRY SYRUP 5 ML UDP PO SCH (09:15)
[2020-04-07] MEDS: MULTIVITAMIN TAB PO SCH (09:15)
[2020-04-07] MEDS: METOPROLOL SUCC 25MG EXT REL TAB PO SCH (09:15)
[2020-04-07] MEDS: ATORVASTATIN 40 MG TAB PO SCH (09:15)
[2020-04-07] MEDS: CHOLECALCIFEROL 1,000 UNITS 25 MCG TAB PO SCH (09:16)
[2020-04-07] MEDS: FERROUS SULFATE 325 MG TAB PO SCH ×2 (09:16→20:45)
--- NOTE | 2020-04-07 09:54 | Gastrointestinal Consultation ---
Date of Consultation April 07, 2020 Supervising Physician Co-Signing Physician Notes I performed a history and physical examination of the patient today, including specifically on physical exam - soft abdomen. I have discussed the patient's management with the advanced practitioner. Please refer to the nurse practitioner's note for the documented findings and plan of care. Flex sig today History of Present Illness Reason for Consultation: Sigmoid mass; rectal bleeding Requesting Physician: Dr. Morenita Lujan Attending Physician: Dr. Aubrey Macias History of Present Illness Pt is a 85 y/o female w hx of Afib not on anticoagulation, s/p TAVR currently admitted for acute on chronic HF. She has hx of recurrent Cdiff, currently on suppressive Vancomycin 125mg daily. GI consulted as pt had outpt CTA abd/pelvis done on 03/29 that showed suspected 7cm sigmoid mass. I spoke w pt's daughter in law who reports pt had rectal bleeding at home. Pt denies abd pain, n/v, stools appear soft greenish this AM. She never had any endoscopic workup before. ASSESSMENT/PLAN: 85 y/o female w recurrent Cdiff on suppressive Vancomycin 125mg daily, noted to have suspected 7cm sigmoid mass on recent CTA and rectal bleeding - Plan for flex sigmoidscopy eval today. Tap water enema prior to procedure. - Vancomycin 125mg PO daily - Recommend Vascular Surgery consult for femoral/renal/celiac artery stenoses Allergies Allergy/AdvReac Type Severity Reaction Status Date / Time milk AdvReac Mild Diarrhea Verified 04/03/20 11:45 Home Medications Home Medications Medication Instructions Recorded Confirmed Type albuterol sulfate 2 inh INHALATION Q6 PRN 10/15/19 04/03/20 History atorvastatin 40 mg PO QAM 10/15/19 04/03/20 History bisacodyl 10 mg NM DAILY PRN 10/15/19 04/03/20 History cholecalciferol (vitamin D3) 1,000 unit PO DAILY 10/15/19 04/03/20 History [Vitamin D3] docusate sodium 100 mg PO BID PRN 10/15/19 04/03/20 History melatonin 3 mg PO HS PRN 10/15/19 04/03/20 History polyethylene glycol 3350 [Miralax] 17 g PO DAILY PRN 10/15/19 04/03/20 History potassium chloride 10 meq PO BID 10/15/19 04/03/20 History torsemide 20 mg PO DAILY 10/15/19 04/03/20 History digoxin 125 mcg (0.125 mg) tablet 125 mcg PO MOWEFR #28 tab 11/08/19 04/03/20 Rx ferrous sulfate 325 mg (65 mg 325 mg PO BID 02/08/20 04/03/20 History iron) tablet,delayed release multivitamin 1 tab PO DAILY 02/08/20 04/03/20 History acetaminophen 325 mg PO Q8 PRN 03/29/20 04/03/20 History heparin (porcine) 5,000 unit SUBCUT Q8H 04/03/20 04/03/20 History metoprolol tartrate 25 mg PO BID 04/03/20 04/03/20 History nitroglycerin 0.4 mg SUBLINGUAL UD PRN 04/03/20 04/03/20 History pantoprazole 40 mg PO QAM 04/03/20 04/03/20 History vancomycin 125 mg PO DAILY 04/03/20 04/03/20 History Patient History Medical History Atrial fibrillation, permanent C. difficile diarrhea CKD (chronic kidney disease) stage 3, GFR 30-59 ml/min Coronary artery disease Dyslipidemia Hypertension Lymphedema of both lower extremities Multiple intracardiac shunts PFO (patent foramen ovale) Pseudoaneurysm Sepsis Severe aortic stenosis Surgical History H/O tooth extraction History of esophagogastroduodenoscopy (EGD) History of tonsillectomy and adenoidectomy S/P TAVR (transcatheter aortic valve replacement) Family History Father Cancer Social History Smoking Status: Never smoker Hx Alcohol Use: No Hx Substance Use: No Preferred Language: Lithuanian Communication Ability: Effective Junior Programmer Required: No Beliefs That Will Affect Care: None Current Living Situation: Rehab [facility] Other Information That Helps Us Care for You: No Feels Safe at Home: Yes Safety Concerns: Feels Safe At This Time Assistive Devices: None Review of Systems Review of Systems: All systems reviewed & are unremarkable except as noted in HPI & below Physical Exam Constitutional: WD/WN, vitals as above well groomed, cooperative and comfortable Eyes: PERRL, conjunctivae normal, anicteric sclerae ENMT: external ear and nose normal, oropharynx normal Respiratory: normal respiratory effort, lungs clear to auscultation Cardiovascular: RRR, no murmur, no edema Gastrointestinal (Abdomen): normal bowel sounds, soft, nontender, no hepatosplenomegaly Skin: no rashes, warm and dry no jaundice Psychiatric: A+Ox3, euthymic affect Lymphatic: no lymphedema Results & Data ([facility]) Vital Signs (Past 12 Hours) Vital Signs Temp Pulse Pulse Resp BP Pulse Ox 04/07/20 07:48 36.5 C 82 16 129/62 95 04/07/20 04:00 36.5 C 83 18 121/72 96 04/07/20 02:09 78 04/06/20 23:57 36.8 C 85 20 125/63 95
[2020-04-07] MEDS: VANCOMYCIN HCL 125 MG/2.5ML SOLN PO SCH (10:26)
[2020-04-07 11:02] LABS: BUN Creatinine Ratio 14.9 (10-20); Calcium 9.3 mg/dl (8.5-10.1); Creatinine Clr Calc Pharmacy 24.7 ml/min; Est GFR (African American) 37.9; Est GFR (Non-African American) 32.7
--- NOTE | 2020-04-07 12:57 | History & Physical Bridge Note ---
Date of Service April 07, 2020 History & Physical Bridge Note I have examined the patient, reviewed the History & Physical and in the interval since the performance of the History & Physical I have noted the following changes of clinical significance: no changes noted
[2020-04-07] MEDS ORDERED: ENDOSCOPIC MARKER 5 ML SYR TOP ONE (13:16)
--- NOTE | 2020-04-07 15:35 | History & Physical Bridge Note ---
Date of Service April 07, 2020 History & Physical Bridge Note I have examined the patient, reviewed the History & Physical and in the interval since the performance of the History & Physical I have noted the following changes of clinical significance: no changes noted Flex sig show large obstructing mass in the sigmoid colon, the upper gastroscope could not pass. Plan for Flex sig with colon stent placement for decompression.
--- NOTE | 2020-04-07 17:47 | Operative Report ---
Post Operative Report Pre & Post Diagnosis Operation Date: 04/07/20 08:00 Pre-Op Diagnosis: Colonic Mass with Obstruction Post-Op Diagnosis: Colonic Mass with Obstruction Operation Date: 04/07/20 17:25 Pre-Op Diagnosis: abnormal cat scan Post-Op Diagnosis: sigmoid mass I identified the patient and participated in the time-out.: Yes Procedure Operation Date: 04/07/20 08:00 Actual Procedures p Flexible Sigmoidoscopy with Colonic Stent Placement(Not Applicable) - Aubrey Macias MD Operation Date: 04/07/20 17:25 Actual Procedures p Flexible Sigmoidoscopy Biopsy - Aubrey Macias MD Surgeon Aubrey Macias MD Street Car Inspector None Estimated Blood Loss 0 Findings See Below (Obstructive colon mass, stent placed) Specimens None Description of Procedure Flex sig I attest to the content of the Intraoperative Record and any orders documented therein. Any exceptions are noted below.
--- NOTE | 2020-04-07 18:13 | Fluoroscopy Report ---
FL pelvis 1-2V CLINICAL HISTORY: COLONIC STENT COMPARISON STUDY: CT angiography of the abdomen and pelvis March 29, 2020. FLUOROSCOPY TIME: 34 seconds. FLUOROSCOPIC IMAGES: 8 FINDINGS: Fluoroscopy was provided during placement of a stent within the sigmoid colon. Stent appear s appropriately positioned with extrinsic compression upon the stent at the level of the mass shown o n CT of March 29, 2020. Contrast within the colon is noted. IMPRESSION: Fluoroscopy provided for placement of a stent which extends across the sigmoid colon mas s. ACT 112: Negative or not required by law. Electronically signed by: Ulysses Thompson M.D. 04/07/2020 6:11 PM
--- NOTE | 2020-04-07 18:13 | GI REPORT ---
Patient Name: Maxine Arias Procedure Date: 04/07/2020 12:57 PM Date of : 1935 Admit Type: Inpatient Age: 85 Gender: Female Attending MD: Aubrey Macias MD Procedure: Flexible Sigmoidoscopy Providers: Aubrey Macias MD Referring MD: Morenita Ochoa Do Indications: Abnormal CT of the GI tract Medicines: None Complications: No immediate complications. Estimated Blood Loss: Estimated blood loss: none. Estimated blood loss: none. Procedure: Pre-Anesthesia Assessment: - Prior to the procedure, a History and Physical was performed, and patient medications, allergies and sensitivities were reviewed. The patient's tolerance of previous anesthesia was reviewed. - The risks and benefits of the procedure and the sedation options and risks were discussed with the patient. All questions were answered and informed consent was obtained. - Patient identification and proposed procedure were verified prior to the procedure by the physician and the nurse. The procedure was verified in the procedure room. - Pre-procedure physical examination revealed no contraindications to sedation. After obtaining informed consent, the endoscope was passed under direct vision. Throughout the procedure, the patient's blood pressure, pulse, and oxygen saturations were monitored continuously. The Endoscope was introduced through the anus and advanced to the sigmoid colon. The flexible sigmoidoscopy was accomplished without difficulty. The patient tolerated the procedure well. The quality of the bowel preparation was fair. Findings: The perianal and digital rectal examinations were normal. A frond-like/villous, infiltrative and polypoid completely obstructing large mass was found in the sigmoid colon and at 20 cm proximal to the anus. The mass was circumferential (involving 100% of the lumen circumference). No bleeding was present. Biopsies were taken with a cold forceps for histology. Verification of patient identification for the specimen was done by the physician and nurse using the patient's name and date. Area was tattooed with an injection of 2 mL of Spot (carbon black). Impression: - Rule out malignancy, completely obstructing tumor in the sigmoid colon and at 20 cm proximal to the anus. Biopsied. Tattooed. Recommendation: - Return patient to hospital quick for ongoing care. - Plan for repeat Flex Sig in OR today with colonic stent placement. Aubrey Macias MD 04/07/2020 6:12:48 PM This report has been signed electronically. Note Initiated On: 04/07/2020 12:57 PM Number of Addenda: 0 I attest to the content of the Intraoperative Record and orders documented therein, exceptions below {[id number]}
--- NOTE | 2020-04-07 18:24 | GI REPORT ---
Patient Name: Maxine Arias Procedure Date: 04/07/2020 5:03 PM Date of : 1935 Admit Type: Inpatient Age: 85 Gender: Female Attending MD: Aubrey Macias MD Procedure: Flexible Sigmoidoscopy Providers: Aubrey Macias MD Referring MD: Morenita Ochoa Do Indications: For therapy of colonic obstruction Medicines: None Complications: No immediate complications. Estimated Blood Loss: Estimated blood loss: none. Procedure: Pre-Anesthesia Assessment: - Prior to the procedure, a History and Physical was performed, and patient medications, allergies and sensitivities were reviewed. - The risks and benefits of the procedure and the sedation options and risks were discussed with the patient. All questions were answered and informed consent was obtained. - Patient identification and proposed procedure were verified prior to the procedure by the physician and the nurse. The procedure was verified in the procedure room. - Pre-procedure physical examination revealed no contraindications to sedation. After obtaining informed consent, the endoscope was passed under direct vision. Throughout the procedure, the patient's blood pressure, pulse, and oxygen saturations were monitored continuously. The Endoscope was introduced through the anus and advanced to the descending colon. The flexible sigmoidoscopy was accomplished without difficulty. The patient tolerated the procedure well. The quality of the bowel preparation was good. Findings: The perianal and digital rectal examinations were normal. A frond-like/villous, fungating and polypoid obstructing large mass was found in the sigmoid colon and at 20 cm proximal to the anus. The mass was circumferential (involving 100% of the lumen circumference). The mass measured five cm in length. No bleeding was present. Contrast was injected and fluoroscopy was used to fortunato the proximal side of the tumor. I personally interpreted the fluoroscopy images. The ultrathin XP scope was maneuvered inside the mass and was able to reach the descending colon. A 0.035 inch long guidewire was placed in the descending colon. The scope was withdrawn. The 1T scope advanced over the guidewire into the sigmoid colon to the tattooed area distal to the mass. A 25 mm x 10 cm Evolution controlled release uncovered colonic stent was successfully placed. A TTS dilator was passed through the scope inside the stent. Dilation of the lumen of the stent with an 8.5-9.5-10.5 mm colonic balloon dilator was performed under fluoroscopic guidance. There was a gush of stool through the stent. 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 10 cm colonic stent was placed. Recommendation: - Return patient to hospital quick for ongoing care. - Refer to a colo-rectal surgeon. - Refer to an oncologist. - Full liquid diet today, then advance as tolerated to soft diet. - Miralax 1 capful (17 grams) in 8 ounces of water PO daily. Aubrey Macias MD 04/07/2020 6:24:15 PM This report has been signed electronically. Note Initiated On: 04/07/2020 5:03 PM Number of Addenda: 0 I attest to the content of the Intraoperative Record and orders documented therein, exceptions below {[id number]}
[2020-04-07] MEDS ORDERED: IOVERSOL 50ml IV ONE (18:41)
[2020-04-07] MEDS: DIGOXIN 0.125 MG TAB PO SCH (18:47)
--- NOTE | 2020-04-07 19:13 | Hospitalist Progress Note ---
Date of Service April 07, 2020 Assessment & Plan (1) Mass of colon: Recent history of rectal bleeding and a sigmoid mass was seen on CT scan on 03/29/2020. Aspirin discontinued following hematochezia episode which has not persisted. Flex sign today with biopsy of mass and placement of colonic stent. (2) Chest pain: No further cardiac work-up, chest pain is resolved. Continue medical management of CAD minus aspirin which is been stopped for hematochezia in previous weeks. (3) Acute on chronic heart failure with preserved ejection fraction (HFpEF): She appears euvolemic on exam at this time. Holding any further diuretics to avoid worsening her acute kidney injury which is still present. Per Cardiology, instead on continuing to hold diuretics on discharge which might lead to noncompliance and readmission, will continue to monitor in the hospital for now (4) C. difficile diarrhea: She has a history of recurrent C. difficile colitis and follows with [facility] for this. She has persistent diarrhea approximately 4 times a day and is on contact precautions for now continue vancomycin 125 mg daily for suppression and recheck stool C. difficile which was negative today. With this history and ongoing diarrhea will cont contact precautions as a public safety concern. (5) Atrial fibrillation, permanent: Declines anticoagulation. Cardiology was consulted this admission. Metoprolol was added back in the form of Toprol-XL 25 daily and heart rate is at goal. Continue monitoring. With a normal ejection fraction, there is not any further work-up for this. Cont Toprol and keep lytes replaced. (6) Coronary artery disease: Stable, nonobstructive disease. No further work-up this admission per cardiology. Defer resuming aspirin to outpatient cardiology after definitive management of colon mass. (7) S/P TAVR (transcatheter aortic valve replacement): (8) Acute worsening of stage 3 chronic kidney disease: Likely secondary to overdiuresis in recent days. Baseline creatinine 0.8- 1 and improved to 1.46 today. Cont to trend BMP off Lasix in am. (9) DVT prophylaxis: Heparin DNR Disposition continue monitoring Morenita Lujan DO [facility] hospitalist. Admission and Anticipated Discharge Date Admission Date: April 03, 2020 Subjective underwent colonic stent placement and flex sig with biopsy of the colon mass she is very short with me in recovery giving only no or yes without much elaboration and looking away she cannot tell me much again regarding her day and how she is doing and answers "i don't know" and "fine" denies pain reports not hungry Review of Systems Review of Systems: All systems reviewed & are unremarkable except as noted in Subjective Physical Exam Physical Exam: CONSTITUTIONAL: obese, vitals as above, generally well- appearing EYES: normal conjunctivae, no scleral icterus ENT: external ear and nose normal, Poor dentition. MMM RESPIRATORY: clear to auscultation bilaterally, no crackles, rales or wheezes, normal respiratory effort CARDIOVASCULAR: regular rate and rhythm, S1 and 2 heard without murmurs, gallops or rubs, no JVD, no peripheral edema. Has chronic appearing bilateral significant lymphedema present. GASTROINTESTINAL: soft, nontender, nondistended MUSCULOSKELETAL: generalized weakness, head is normocephalic and atraumatic SKIN: warm and dry NEUROLOGIC: CN 2-12 grossly intact, no sensory deficit, normal cognition, normal speech PSYCHIATRIC: alert and cooperative. Significant memory loss. Results & Data Results & Data ([facility]) Vital Signs (Past 12 Hours) Vital Signs Temp Pulse Pulse Resp BP BP Pulse Ox 04/07/20 19:02 37.0 C 80 18 145/76 H 96 04/07/20 17:38 84 20 178/83 H 100 04/07/20 17:36 82 20 178/78 H 99 04/07/20 17:31 74 20 171/69 H 97 04/07/20 17:26 78 18 175/92 H 99 04/07/20 17:21 81 18 192/88 H 96 04/07/20 17:16 78 18 192/88 H 99 04/07/20 17:11 84 20 170/80 H 97 04/07/20 14:15 36.6 C 81 16 141/82 H 98 04/07/20 13:52 70 20 137/78 94 04/07/20 13:42 76 20 136/74 97 04/07/20 13:27 97 H 21 124/44 L 97 04/07/20 13:22 77 21 141/64 H 97 04/07/20 13:17 79 18 133/75 97 04/07/20 13:12 77 21 136/63 97 04/07/20 13:07 72 21 136/91 97 04/07/20 12:27 36.6 C 63 16 159/55 H 97 04/07/20 07:48 36.5 C 82 16 129/62 95 Laboratory Results BMP 04/07/20 10:20 Sodium 141 Potassium 4.0 Chloride 107 Carbon Dioxide 28 BUN 22 H Creatinine 1.46 H Glucose 111 H Calcium 9.3 Medications Administered Current Inpatient Medications Acetaminophen (Acetaminophen 325 Mg Tab) 650 mg PO Q4H PRN PRN Reason: Pain or Fever Stop: 05/03/20 19:25 Al Hydrox/Mg Hydrox/Simethicone (Aluminum/Magnesium Susp 30 Ml Udc) 15 ml PO Q4H PRN PRN Reason: Dyspepsia Stop: 05/03/20 19:25 Albuterol (Albuterol Hfa 8 Gm Inhaler) 2 puffs INH Q6 PRN PRN Reason: Wheezing Stop: 05/03/20 19:25 Atorvastatin Calcium (Atorvastatin 40 Mg Tab) [facility] [place] Stop: 05/04/20 08:59 Last Admin: 04/07/20 09:15 Dose: 40 mg Documented by: Digoxin (Digoxin 0.125 Mg Tab) 0.125 mg PO [id number] [facility] Stop: 05/03/20 19:25 Last Admin: 04/07/20 18:47 Dose: Not Given Documented by: Ferrous Sulfate (Ferrous Sulfate 325 Mg Tab) 325 mg PO BID [facility] Stop: 05/03/20 20:59 Last Admin: 04/07/20 09:16 Dose: 325 mg Documented by: Heparin Sodium (Porcine) (Heparin Sod 5,000 Unit/0.5 Ml Vial) 5,000 units SQ Q8 [facility] Stop: 05/03/20 21:59 Last Admin: 04/07/20 14:20 Dose: Not Given Documented by: Magnesium Hydroxide (Magnesium Hydroxide Susp 30 Ml Udc) 30 ml PO Q12H PRN PRN Reason: Constipation Stop: 05/03/20 19:25 Metoprolol Succinate (Metoprolol Succ 25mg Ext Rel Tab) [facility] [place] Stop: 05/06/20 12:44 Last Admin: 04/07/20 09:15 Dose: 25 mg Documented by: Miconazole Nitrate (Miconazole Nitrate Powder 43 Gm) 1 appln EXT PRN PRN PRN Reason: Affected Skin Folds Stop: 05/04/20 14:50 Multivitamins (Multivitamin Tab) 1 tab PO DAILY [facility] Stop: 05/04/20 08:59 Last Admin: 04/07/20 09:15 Dose: 1 tab Documented by: Ondansetron HCl (Ondansetron Inj 2 Mg/Ml 2 Ml Vial) 4 mg IV Q6H PRN PRN Reason: Nausea Stop: 05/03/20 19:25 Pantoprazole Sodium (Pantoprazole 40 Mg Tab) 40 mg PO QAM REECE Stop: 05/04/20 08:59 Last Admin: 04/07/20 09:15 Dose: 40 mg Documented by: Polyethylene Glycol (Polyethylene (Miralax) 17 Gm Pack) 17 gm PO DAILY PRN PRN Reason: Constipation Stop: 05/03/20 19:25 Potassium Chloride (Potassium Chloride 10 Meq Tabcr) 10 meq PO BID REECE Stop: 05/03/20 20:59 Last Admin: 04/07/20 09:15 Dose: 10 meq Documented by: Raspberry (Raspberry Syrup 5 Ml Udp) 5 ml PO DAILY REECE Stop: 04/18/20 08:59 Last Admin: 04/07/20 09:15 Dose: 5 ml Documented by: Vancomycin HCl (Vancomycin Hcl 125 Mg/2.5ml Soln) 125 mg PO DAILY REECE Stop: 05/04/20 08:59 Last Admin: 04/07/20 10:26 Dose: 125 mg Documented by: Vitamin D (Cholecalciferol 1,000 Units 25 Mcg Tab) 1,000 units PO DAILY REECE Stop: 05/04/20 08:59 Last Admin: 04/07/20 09:16 Dose: 1,000 units Documented by: (1) Chest pain Chest pain type: unspecified Qualified Code(s): R07.9 - Chest pain, unspecified
[2020-04-08] MEDS: HEPARIN SOD 5,000 UNIT/0.5 ML VIAL SQ SCH ×2 (05:44→09:02)
[2020-04-08 08:26] LABS: Hematocrit (blood only) 34.9 % (37-47); Hemoglobin 11.2 g/dL (12.0-16.0); Mean Corpuscular Hemoglobin 31.9 pg (25-34); Mean Corpuscular Hgb Conc 32.1 g/dL (32-36); Mean Corpuscular Volume 99.4 fL (80-100); Mean Platelet Volume 10.7 fL (7.4-10.4); Platelet Count 209 K/uL (130-400); RDW Coefficient of Variation 14.7 % (11.5-14.5); RDW Standard Deviation 52.4 fL (36.4-46.3); Red Blood Count 3.51 M/uL (4.2-5.4); White Blood Count 9.56 K/uL (4.8-10.8)
[2020-04-08 08:42] LABS: BUN Creatinine Ratio 14.7 (10-20); Calcium 9.6 mg/dl (8.5-10.1); Creatinine Clr Calc Pharmacy 29.1 ml/min; Est GFR (African American) 46.2; Est GFR (Non-African American) 39.9; Potassium 4.2 mmol/L (3.5-5.1)
[2020-04-08] MEDS: PANTOprazole 40 MG TAB PO SCH (09:01)
[2020-04-08] MEDS: FERROUS SULFATE 325 MG TAB PO SCH (09:01)
[2020-04-08] MEDS: POTASSIUM CHLORIDE 10 MEQ TABCR PO SCH (09:01)
[2020-04-08] MEDS: MULTIVITAMIN TAB PO SCH (09:01)
[2020-04-08] MEDS: ATORVASTATIN 40 MG TAB PO SCH (09:01)
[2020-04-08] MEDS: CHOLECALCIFEROL 1,000 UNITS 25 MCG TAB PO SCH (09:01)
[2020-04-08] MEDS: METOPROLOL SUCC 25MG EXT REL TAB PO SCH (09:01)
[2020-04-08] MEDS: RASPBERRY SYRUP 5 ML UDP PO SCH (09:02)
[2020-04-08] MEDS: VANCOMYCIN HCL 125 MG/2.5ML SOLN PO SCH (10:01)
--- NOTE | 2020-04-08 13:18 | Discharge Summary ---
Date of Service April 08, 2020 Admission HPI Per Admitting Provider This is an 85-year-old female who has significant past medical history of permanent A. 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 Of significance patient recently hospitalized at [facility] 03/31 to 04/02 secondary to ambulatory dysfunction and weakness. Symptoms felt to be secondary to dehydration, home Demadex was held, she received IV fluid, PT OT evaluation who recommended acute rehab. She was discharged to [facility] on 04/02/2020. She had a negative COVID screen prior to discharge. She states last evening she developed substernal chest discomfort, described as a, "ache," nonradiating, occurred at rest, would wax and wane, "felt like elephant on chest." Pain persisted throughout evening and she received 2 sublingual nitro prior to arrival. This resolved her chest disco mfort. She further elicits associated shortness of breath at rest, dry cough and weakness. She does have diarrhea approximately 5 episodes a day in conjunction with her recurrent C. difficile. She denies any recent fever, chills, sweats, lightheadedness, dizziness, syncope, palpitations, hemoptysis, nausea, vomiting, abdominal pain. Overall decreased appetite which is normal per patient. She does have severe bilateral lower extremity lymphedema and is unsure if her legs are more swollen than usual. She is unsure if she is had any weight gain or weight loss. In ED patient was hypertensive, tachycardic and tachypneic. Upon admission she does meet SIRS criteria. Lab work notable for leukocytosis 12.10k., H&H 11.0 and 35.7, platelet 202, BUN 17, creatinine 1.16, troponin 0.025, dig 0.9. Chest x-ray Left basilar opacities likely atelectasis, possible trace pleural effusion. CTA chest performed and revealed Suspected mild pulmonary edema with bilateral pleural effusions, bibasilar opacities likely atelectatic, no evidence of PE. In ED she received IV Levaquin, IV Zosyn and a 1 inch nitro paste was placed. Admission Exam Per Admitting Provider Physical Exam Gen-AAO x 3, NAD, Afebrile Head-NCAT, EOMI, PERRLA, Anicteric Sclera, No Posterior Pharyngeal Erythema Neck-Supple, No JVD, No Thyromegaly, No Masses, No LAD, No Bruits Lungs-Clear to Auscultation Bilaterally, No Rales, No Rhonchi, No Wheezing, No Crepitus Chest-No S4, +S1, +S2, No S3, No Murmurs, No Rubs, No Gallops, No Ectopy Abdomen-Soft, Bowel Sounds Present, Non Tender, Non Distended, No Hepatomegaly, No Splenomegaly, No Palpable Masses, No Rebound, No Rigidity, No Guarding Musculoskeletal-Full Range of Motion Bilaterally, No CVAT Extremities-No Cyanosis, No Clubbing, No Edema Nuero-Cranial Nerves II-XII grossly intact, Motor WNL, DTRs WNL, Strength WNL, Non Focal Psych-Normal Mood Principal Diagnosis Colon mass s/p biopsy and colonic stent Chest pain Acute on chronic heart failure with preserved ejection fraction History of C. difficile diarrhea Atrial fibrillation Status post TAVR Acute on chronic worsening of stage III chronic kidney disease Morbid obesity Chronic lymphedema Discharge Exam CONSTITUTIONAL: obese, vitals as above, generally well-appearing EYES: normal conjunctivae, no scleral icterus ENT: external ear and nose normal, Poor dentition. MMM RESPIRATORY: clear to auscultation bilaterally, no crackles, rales or wheezes, normal respiratory effort CARDIOVASCULAR: regular rate and rhythm, S1 and 2 heard without murmurs, gallops or rubs, no JVD, no peripheral edema. Has chronic appearing bilateral significant lymphedema present. GASTROINTESTINAL: soft, nontender, nondistended. She does feels some pressure and reports gas today in the LLQ MUSCULOSKELETAL: generalized weakness, head is normocephalic and atraumatic SKIN: warm and dry NEUROLOGIC: CN 2-12 grossly intact, no sensory deficit, normal cognition, normal speech PSYCHIATRIC: alert and cooperative. Significant memory loss. Discharge Data Allergies Allergy/AdvReac Type Severity Reaction Status Date / Time milk AdvReac Mild Diarrhea Verified 04/03/20 11:45 Consultations 04/03/20 12:04 ED Decision to Admit Stat 04/03/20 13:12 Consult Cardiology Routine 04/03/20 19:26 Consult Case Management - Discharge Planning Routine 04/06/20 16:37 Consult Gastroenterology Routine Procedures Performed Operation Date: 04/07/20 08:00 Actual Procedures p Flexible Sigmoidoscopy with Colonic Stent Placement(Not Applicable) - Aubrey Macias MD Operation Date: 04/07/20 17:25 Actual Procedures p Flexible Sigmoidoscopy Biopsy - Aubrey Macias MD Ordered Studies 04/03/20 11:49 CT angio chest PE protocol Stat 04/07/20 FL pelvis 1-2V Routine Hospital Course (1) Mass of colon: (2) Chest pain: (3) Acute on chronic heart failure with preserved ejection fraction (HFpEF): Patient is an 85-year-old female presented to the ER with chest pain x 1 day. She had associated nausea and vomiting. Her chest pain was relieved with nitroglycerin. She came in from [facility] and she was admitted there from [facility]. She has a history of coronary artery disease. Heart rate was in the 130s, white blood cell count was 12, she met SIRS criteria and was admitted to the hospitalist service. BNP was 10,000. A CT angiogram of the chest revealed mild pulmonary edema and bilateral pleural effusions with no evidence of pulmonary embolism. Serial troponin was checked and negative. Her chest pain was considered nonischemic, however her EKG was not normal so continued observation was recommended. She does have permanent atrial fibrillation with a well-controlled heart rate but has declined anticoagulation in the past. She has known coronary artery disease based on recent catheterization prior to her TAVR but was felt not to require intervention at that time and cardiology recommended no further pursuit of cardiac evaluation at this time. Aspirin was recently stopped after hematochezia was noted at home mid-March. She has continued to be diuresed with Lasix for acute heart failure,and notably has a h/o chronic lymphedema bilaterally. she developed an NAZANIN and Lasix was stopped for a few days until this returns. Torsemide was restarted at time of discharge. Transthoracic echocardiogram revealed a dilated left atrium and dilated right atrium, a left to right flow across PFO with anterior atrial septum bowing to the right, a mild periprosthetic aortic regurgitation, severe eccentric mitral regurgitation and elevated right ventricular systolic pressure at 30 to 40 mmHg. There was no discrete valvular vegetation or suggestion of endocarditis. Left ventricular systolic function is normal. A CT scan performed on 03/29/2020 revealed a 7 cm sigmoid mass. An outpatient colonoscopy was recommended, however was able to perform a flex sigmoidoscopy with biopsy and colon stent. The mass was notably obstructing the colon. Path was pending at time of discharge. She was instructed to establish care with both a colorectal surgeon and an oncologist as outpatient. Of note she reported never having colonoscopy performed in the past. Although the patient met Sirs criteria on admission with leukocytosis tachycardia and tachypnea her urine culture was negative, blood cultures are negative, she is clinically feeling and looking improved and does not appear to have any pneumonia or other infection at this time. The antibiotics were discontinued. The patient does have a history of recurrent C. difficile colitis and follows with [facility]. She remained on contact precautions and continues on vancomycin 125 mg daily for suppression however, nursing reports reveals she was having multiple episodes of diarrhea a day up to 3 or 4. Therefore C. difficile toxin was rechecked and was negative. The patient was a poor historian for most of the hospitalization answering "I am fine" or "I do not know." She deferred to her sister in law for most discussions. At time of discharge she was hemodynamically stable afebrile and tolerating p.o. She did have some gassiness in her abdomen but was able to pass flatus and did not have any abdominal pain. She was transferred back to [facility] for continued rehab in stable condition with close follow-up with a colorectal surgeon and an oncologist within the next couple of weeks. Close primary care follow-up was also strongly recommended. Total Time Total Time Spent Total Time Spent (In Minutes): 60 Total Time Includes: Examination of the Patient, Discharge Planning, Medication Reconciliation and Communication With Other Providers Discharge Plan Discharge Items Patient Disposition: Transfer Inpatient Rehab Fac Reason For Visit: CHEST PAIN, HAP Discharge Diagnosis: Colon mass s/p biopsy and colonic stent Chest pain Acute on chronic heart failure with preserved ejection fraction History of C. difficile diarrhea Atrial fibrillation Status post TAVR Acute on chronic worsening of stage III chronic kidney disease Morbid obesity Chronic lymphedema Condition on Discharge: Good Health Concerns: follow-up of biopsy results soon and establishing care with a colorectal surgeon and an oncologist. Activity: As commented below Activity Comment: per rehabilitation limitations. Non-emergency contact: Primary Care Provider Call non-emergency contact if: you have any medication questions, your symptoms worsen, your pain is not controlled and your pain is worsening Follow-up/Referrals: [facility] [Primary Care Provider] - Diet: Low Sodium (2gm) Addtl Attending Provider Instructions: Please take all medications as instructed on discharge list below. Please follow-up with your primary care physician within 1 to 2 weeks to ensure you are doing well after hospitalization and to help get you referred to a local oncologist and colorectal surgeon for treatment of your colon mass. [facility] gastroenterology should follow-up with you regarding the pathology results from the biopsy performed in the hospital. If you do not hear from them please check with your primary care doctor or call them directly. Pending Studies at Discharge: Yes Studies:: path Stand-Alone Forms: My [facility] [address] Skilled Items Patient informed of condition?: Yes DNR: Yes Discharge Level of Care: Acute rehab Communicable Disease: No Discharge Prognosis: Stable Lines: None Urinary Catheter: No Medications and DC Order Prescriptions: New metoprolol succinate 25 mg Tablet Extended Release 24 Hr 25 mg PO QAM Qty: 30 RF: 1 Continued digoxin [Digox] 125 mcg (0.125 mg) tablet 125 mcg PO MOWEFR Qty: 28 RF: 3 ferrous sulfate 325 mg (65 mg iron) tablet,delayed release (DR/EC) 325 mg PO BID RF: 0 multivitamin [Daily Multi-Vitamin] Tablet 1 tab PO DAILY RF: 0 atorvastatin 40 mg Tablet 40 mg PO QAM RF: 0 potassium chloride 10 mEq Capsule, Extended Release 10 meq PO BID RF: 0 torsemide 20 mg Tablet 20 mg PO DAILY RF: 0 polyethylene glycol 3350 [Miralax] 17 gram Powder In Packet 17 g PO DAILY PRN (Reason: Constipation) RF: 0 melatonin 3 mg Tablet 3 mg PO HS PRN (Reason: Sleep) RF: 0 bisacodyl 10 mg Suppository 10 mg NE DAILY PRN (Reason: Constipation) RF: 0 docusate sodium 100 mg Capsule 100 mg PO BID PRN (Reason: Constipation) RF: 0 albuterol sulfate 90 mcg/actuation Hfa Aerosol Inhaler 2 inh INHALATION Q6 PRN (Reason: Wheezing) RF: 0 cholecalciferol (vitamin D3) [Vitamin D3] 25 mcg (1,000 unit) Tablet 1,000 unit PO DAILY RF: 0 acetaminophen 325 mg Tablet 325 mg PO Q8 PRN (Reason: Pain) RF: 0 vancomycin 125 mg Capsule 125 mg PO DAILY RF: 0 pantoprazole 40 mg tablet,delayed release (DR/EC) 40 mg PO QAM RF: 0 nitroglycerin 0.4 mg Tablet, Sublingual 0.4 mg sublingual UD PRN (Reason: Chest Pain) RF: 0 Discontinued heparin (porcine) 5,000 unit/mL Syringe 5,000 unit SUBCUT Q8H RF: 0 metoprolol tartrate 25 mg Tablet 25 mg PO BID RF: 0 Discharge Orders: Discharge Order (Routine); Ordered 04/08/20 Ordered By: Morenita Lujan Admission Data Admit Date/Time: 04/03/20 12:35 Attending Provider: Morenita Lujan Admit Provider: Trevin Lindo [facility] Other Providers: Trevin Lindo ; Carlos Sue ; Abhijit Carcamo
--- NOTE | 2020-04-20 08:18 | Coding Query ---
PATHOLOGY To promote full compliance with coding requirements relating to patient care, physician participation is requested in all cases of plane tableman uncertainty. Please assist us with the question(s) below: Please review the Pathology report and please document any relevant diagnosis(es) below: Diagnosis(es): Colon adenocarcinoma Thank you Afsaneh CHU
== END 2020-04-08 17:15 | DRG 291 ==
LOC: ED 10:04 → 2W 12:35 → SUATTDRO 12:35 → 2W 19:31 → 3W 04-07 22:17

== ENCOUNTER 2020-05-02 07:07 | Inpatient (IN) ==
--- NOTE | 2020-04-26 16:22 | PAT Medication Instructions ---
Medication Instructions Date of Service April 26, 2020 Home Medications Medication Instructions Recorded digoxin 125 mcg (0.125 mg) tablet 125 mcg PO MOWEFR #28 tab 11/08/19 metoprolol succinate 25 mg PO QAM #30 tab 04/08/20 albuterol sulfate 2 inh INHALATION Q6 PRN atorvastatin 40 mg PO QAM cholecalciferol (vitamin D3) [Vitamin D3] 1,000 unit PO QAM melatonin 3 mg PO HS PRN potassium chloride 10 meq PO BID torsemide 20 mg PO 3XWK digoxin 125 mcg (0.125 mg) tablet 125 mcg PO MOWEFR ferrous sulfate 325 mg (65 mg iron) tablet,delayed release 325 mg PO BID multivitamin 1 tab PO QAM acetaminophen 325 mg PO Q8 PRN nitroglycerin 0.4 mg SUBLINGUAL UD PRN pantoprazole 40 mg PO QAM vancomycin 125 mg PO QAM metoprolol succinate 25 mg PO QAM Lactobacillus acidoph-L.bulgar [Floranex] 1 tab PO BID apixaban [Eliquis] 2.5 mg PO BID Continue as directed digoxin 125 mcg (0.125 mg) tablet 125 mcg PO MOWEFR nitroglycerin 0.4 mg SUBLINGUAL UD PRN vancomycin 125 mg PO QAM ASK your prescriber and surgeon apixaban [Eliquis] 2.5 mg PO BID DO NOT take the morning of surgery cholecalciferol (vitamin D3) [Vitamin D3] 1,000 unit PO QAM potassium chloride 10 meq PO BID torsemide 20 mg PO 3XWK ferrous sulfate 325 mg (65 mg iron) tablet,delayed release 325 mg PO BID multivitamin 1 tab PO QAM Lactobacillus acidoph-L.bulgar [Floranex] 1 tab PO BID Take morning of surgery With a small sip of water, OTHERWISE NOTHING TO EAT OR DRINK AFTER MIDNIGHT: albuterol sulfate 2 inh INHALATION Q6 PRN (use if needed; please bring with you to hospital day of surgery if possible) atorvastatin 40 mg PO QAM acetaminophen 325 mg PO Q8 PRN (okay to take up to 4 hours prior to surgery if needed) pantoprazole 40 mg PO QAM metoprolol succinate 25 mg PO QAM Take evening before surgery albuterol sulfate 2 inh INHALATION Q6 PRN (if needed) melatonin 3 mg PO HS PRN (if needed) potassium chloride 10 meq PO BID ferrous sulfate 325 mg (65 mg iron) tablet,delayed release 325 mg PO BID acetaminophen 325 mg PO Q8 PRN (if needed) Lactobacillus acidoph-L.jasmina [Floranex] 1 tab PO BID Other Notes If you have any questions please call us at [phone] or [phone] or [phone] or [phone]
--- NOTE | 2020-04-28 09:08 | Anesthesiology Consultation ---
Date of Service April 28, 2020 Assessment & Plan (1) Encounter for pre-operative examination: - Per assessment on 04/28: Travel screen- Lives in [facility]. [facility] for doctor appt. Was d/c from [facility] 04/21. No COVID positive staff/patients at facility currently. No known COVID-19 positive contacts or current COVID-19 related symptoms. Surgeon arranging preop COVID testing (scheduled 04/[address] Mata's office). Awaiting results. - Eliquis instructions per surgeon/prescriber - [facility] admission: 03/2020: chest discomfort, diarrhea (hx recurrent c. diff). In ED patient was hypertensive, tachycardic and tachypneic. Upon admission she does meet SIRS criteria. Chest x-ray Left basilar opacities likely atelectasis, possible trace pleural effusion. CTA chest performed and revealed Suspected mild pulmonary edema with bilateral pleural effusions, bibasilar opacities likely atelectatic, no evidence of PE. In ED she received IV Levaquin, IV Zosyn and a 1 inch nitro paste was placed. Chest pain considered nonischemic. Per discharge summary, "Although the patient met Sirs criteria on admission with leukocytosis tachycardia and tachypnea her urine culture was negative, blood cultures are negative, she is clinically feeling and looking improved and does not appear to have any pneumonia or other infection at this time. The antibiotics were discontinued.. She was transferred back to [facility] for continued rehab in stable condition with close follow-up with a colorectal surgeon and an oncologist within the next couple of weeks." - Cardiology evaluation (during 03/2020 [facility] admission): 04/04/20: "She has known coronary artery disease based on recent catheterization prior to her TAVR, but it was not felt to require intervention at that time. It could have progressed but there is no clear evidence of ischemia at this time. I would not pursue further evaluation unless her enzymes trend upward significantly.. S/P TAVR (transcatheter aortic valve replacement): Based on exam and echocardiography her valve is functioning well. " - Elevated creatinine (1.84) on preop labs. Known hx of CKD with fluctuating creatinines per chart review. Baseline per review of recent labs closer to 1.4- 1.5. Due to elevated from baseline, Dr. Moctezuma recommends recheck with creatinine AM DOS. - Case reviewed with Dr. Moctezuma. He feels that patient is okay to proceed with surgery as scheduled without further cardiac evaluation and/or testing from his perspective. Patient will be re-evaluated AM DOS. Chart Review Chart Review: Acceptable Risk for Surgery (pending BMP and evaluation AM DOS) and Patient seen in Pre Admission Testing Consults Requested none Teaching & Discussion Pre-Anesthesia Teaching/Discussion Notes: Instructed NPO after midnight before surgery,except medications with 15 cc of water. Medication instructions provided according to the PAT guidelines. ASA ASA4 Proposed Anesthesia Anesthesia Type: General Anesthesia Line Insertion: Arterial line Risk / Benefits Reviewed With: PT / POA / Parent / Guardian, Accepts Plan and Informed Consent Obtained Additional Comments: covid test negative History Surgery Operation Date: 05/02/20 08:50 Proposed Procedures p Right Repair Femoral Artery Pseudoaneurysm with Endarterectomy of Common Femoral Artery - Mauro Mata MD Height/Weight Height: 5 ft Weight: 67.3 kg Allergies Allergy/AdvReac Type Severity Reaction Status Date / Time milk AdvReac Mild Diarrhea Verified 05/02/20 07:44 Medications Home Medications Medication Instructions Recorded Confirmed Last Taken albuterol sulfate 2 inh INHALATION Q6 PRN 10/15/19 05/02/20 Unknown atorvastatin 40 mg PO QAM 10/15/19 05/02/20 05/02/20 05:00 cholecalciferol (vitamin D3) 1,000 unit PO QAM 10/15/19 05/02/20 05/01/20 08:00 [Vitamin D3] melatonin 3 mg PO HS PRN 10/15/19 05/02/20 Unknown potassium chloride 10 meq PO BID 10/15/19 05/02/20 05/01/20 20:00 torsemide 20 mg PO 3XWK 10/15/19 05/02/20 05/01/20 08:00 digoxin 125 mcg (0.125 mg) tablet 125 mcg PO MOWEFR #28 tab 11/08/19 05/02/20 05/01/20 08:00 ferrous sulfate 325 mg (65 mg 325 mg PO BID 02/08/20 05/02/20 05/01/20 20:00 iron) tablet,delayed release multivitamin 1 tab PO QAM 02/08/20 05/02/20 05/01/20 08:00 acetaminophen 325 mg PO Q8 PRN 03/29/20 05/02/20 04/30/20 nitroglycerin 0.4 mg SUBLINGUAL UD PRN 04/03/20 05/02/20 04/03/20 09:00 pantoprazole 40 mg PO QAM 04/03/20 05/02/20 05/02/20 05:00 vancomycin 125 mg PO QAM 04/03/20 05/02/20 05/02/20 05:00 metoprolol succinate 25 mg PO QAM #30 tab 04/08/20 05/02/20 05/02/20 05:00 Lactobacillus acidoph-L.bulgar 1 tab PO BID 04/25/20 05/02/20 05/01/20 20:00 [Floranex] apixaban [Eliquis] 2.5 mg PO BID 04/25/20 05/02/20 04/27/20 20:00 Active Medications Generic Name Dose Route Start Last Admin Trade Name Freq PRN Reason Stop Dose Admin Lactated Ringer's 1,000 mls @ 80 mls/hr 05/02/20 06:00 05/02/20 08:21 Lr IV 05/02/20 18:29 80 mls/hr .[id number] REECE Administration NPO Date Last Intake of Fluids: 05/01/20 Time Last Intake of Fluids: 21:00 Date Last Intake of Solids: 05/01/20 Time Last Intake of Solids: 18:00 Past Medical History Medical History Atrial fibrillation, permanent C. difficile diarrhea symptoms present. pt states s/s have not resolved. 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 small ASD under surveillance by cardiology Pseudoaneurysm Severe aortic stenosis hx s/p TAVR (08/2019), Mild periprosthetic aortic regurgitation per 03/2020 echo Stroke 4+ years ago, no residual effects Exercise / Class Metabolic Activity III < 4 Walking/Shop/Light housework Past Family History Family History Father Cancer Past Surgical History Surgical History H/O tooth extraction 4 remaining teeth History of ankle fracture Right ankle fracture repair History of cardiac cath 07/2019 History of cataract surgery R/L History of colonoscopy History of esophagogastroduodenoscopy (EGD) History of tonsillectomy and adenoidectomy S/P TAVR (transcatheter aortic valve replacement) 08/2019 Past Anesthesia History No Hx of Anesthesia Complications and No Family Hx of Anesthesia Complications Brother- manic post-operatively History of PONV No Hx of PONV and No Hx of Motion Sickness Social History Smoking Status: Never smoker Do You Dip or Chew Tobacco: No Hx Alcohol Use: No Hx Substance Use: No substance use type: does not use Review of Systems Patient feels improved since discharge from [facility] 03/2020. Patient denies chest pain, shortness of breath, fever, chills, cough, wheezing, palpitations. Physical Exam Vital Signs Last Vital Signs Temp 36.6 C 05/02/20 07:56 Pulse 92 H 05/02/20 07:56 Resp 20 05/02/20 07:56 BP 151/80 H 05/02/20 07:56 Pulse Ox 97 05/02/20 07:56 VITALS BP 116/77 P 76 TEMP 97.4 SP02 98%RA RESP 16 PHYSICAL Full neck and c-spine range of motion. Full TMJ range of motion. TMD 3 finger breaths Mallampati Score 1 Dentition: 4 remaining teeth Lungs: clear throughout to auscultation Cardiac: regular rate and rhythm, I/ systolic murmur, distant heart sounds Spine: normal Carotid arteries: negative bruit Extremities: R/L lymphedema Testing Laboratory Results 04/28/20 09:39 05/02/20 07:56 PT 10.5 Seconds (9.0-12.0) 04/28/20 09:39 INR 1.0 (0.9-1.1) 04/28/20 09:39 APTT 28.2 Seconds (21.0-31.0) 04/28/20 09:39 Blood Type O Positive 04/28/20 09:39 Antibody Screen NEGATIVE 04/28/20 09:39 Electrocardiogram Date: 04/28/20 A. flutter with variable AVB at 87bpm. Rightward axis. LVH with repolarization abnormality. Anterior infarct (cited on/before 10/15/19 per fur dry cleaner hand review). Chest X-Ray Date: 04/28/20 FINDINGS: Moderate cardiomegaly with prosthetic aortic graft. Calcific plaque of the thoracic aortic arch. Mild chronic interstitial coarsening. No pneumothor ax, large pleural effusion, overt pulmonary edema or airspace consolidation typical for pneumonia. Hiatal hernia. Degenerative changes of the shoulders and spine. Cholelithiasis. Subacute to chronic bilateral rib fractures. IMPRESSION: Cardiomegaly without acute process. Echocardiogram Date: 04/04/20 EF 55-60%. No RWMA. Borderline cLVH. Severe LAD. Moderate RAD. Intra atrial septum bows to the right and there is [id number] flow across PFO. Mild periprosthetic aortic regurgitation. Severe eccentric MR. Regurgitant jet appears to involve the LV outflow tract along the aorto mitral continuity. RVSP 30-40mmhg. Mild TR. Cardiac Catheterization Date: 07/22/19 Severe CAD involving D2, mid circumflex, and distal RCA. Otherwise, moderate CAD involving LAD and mid RCA. Elevated left-sided filling pressure. Mild pulmonary hypertension, likely due to left heart failure. Evidence of left to right interatrial shunt. Plan: Referral to CT surgery at [facility] to discuss options regarding aortic valve replacement, with consideration of above CAD. We will attempt to titrate diuretic therapy. Continue medical therapy. Patient subsequent had TAVR 08/2019- they deemed that cardiac disease did not warrant intervention at time. Patient subsequently seen by cardiology 04/04/20 during [facility] admission at which patient had chest pain complaints- they did not feel that there was clear evidence of ischemia and they did not feel that further evaluation was warranted.*
--- NOTE | 2020-04-28 10:25 | XRay Report ---
XR chest Pre-admission PA/Lat HISTORY: 85 years-old Female pat preoperative exam. No acute chest complaints COMPARISON: Chest radiograph and CTA chest 04/03/2020 TECHNIQUE: AP and lateral views of the chest FINDINGS: Moderate cardiomegaly with prosthetic aortic graft. Calcific plaque of the thoracic aortic arch. Mild chronic interstitial coarsening. No pneumothorax, large pleural effusion, overt pulmonary edema or a irspace consolidation typical for pneumonia. Hiatal hernia. Degenerative changes of the shoulders and spine. Cholelithiasis. Subacute to chronic bilateral rib fractures. IMPRESSION: Cardiomegaly without acute process. ACT 112: Negative or not required by law. The above report was generated using voice recognition software. It may contain grammatical, syntax o r spelling errors. Electronically signed by: Xavier Diaz M.D. 04/28/2020 10:24 AM
[2020-04-28 10:29] LABS: Basophils # (auto) 0.03 K/uL (0-0.2); Basophils % (auto) 0.3 %; Eosinophils # (auto) 0.32 K/uL (0-0.5); Eosinophils % (auto) 3.1 %; Hemoglobin 12.1 g/dL (12.0-16.0); Immature Granulocytes # (auto) 0.01 K/uL (0.00-0.02); Immature Granulocytes % (auto) 0.1 %; Lymphocytes # (auto) 1.51 K/uL (1.2-3.4); Lymphocytes % (auto) 14.6 %; Mean Corpuscular Hemoglobin 32.7 pg (25-34); Mean Corpuscular Hgb Conc 31.8 g/dL (32-36); Mean Corpuscular Volume 102.7 fL (80-100); Mean Platelet Volume 10.6 fL (7.4-10.4); Monocytes # (auto) 1.01 K/uL (0.11-0.59); Monocytes % (auto) 9.8 %; Neutrophils # (auto) 7.47 K/uL (1.4-6.5); Neutrophils % (auto) 72.1 %; Platelet Count 260 K/uL (130-400); RDW Coefficient of Variation 15.4 % (11.5-14.5); RDW Standard Deviation 58.4 fL (36.4-46.3); White Blood Count 10.35 K/uL (4.8-10.8)
[2020-04-28 10:37] LABS: Partial Thromboplastin Time 28.2 Seconds (21.0-31.0); Prothrombin Time 10.5 Seconds (9.0-12.0)
--- NOTE | 2020-04-28 10:56 | Electrocardiogram Report ---
Test Reason : Blood Pressure : / mmHG Vent. Rate : 087 BPM Atrial Rate : 394 BPM P-R Int : 000 ms QRS Dur : 086 ms QT Int : 374 ms P-R-T Axes : 000 096 067 degrees QTc Int : 450 ms Atrial flutter with variable A-V block Rightward axis Left ventricular hypertrophy with repolarization abnormality Anterior infarct (cited on or before 15-OCT-2019) Abnormal ECG When compared with ECG of 03-APR-2020 10:10, Atrial flutter has replaced Atrial fibrillation ST now depressed in Lateral leads Confirmed by Cory Hoyt ([id number]) on 04/28/2020 10:56:39 AM Referred By: Mauro Mata Confirmed By:Cory Hoyt
[2020-04-28 11:28] LABS: BUN Creatinine Ratio 21.8 (10-20); Calcium 9.4 mg/dl (8.5-10.1); Creatinine Clr Calc Pharmacy 19.5 ml/min; Est GFR (African American) 28.7; Est GFR (Non-African American) 24.7; Potassium 3.6 mmol/L (3.5-5.1)
[~2020-05-02 07:07] MED LIST: LR 15ML/HR IV SCH; ceFAZolin 1000MG 1,000 MG/7.5 ML SYR IV SCH
[2020-05-02] MEDS ORDERED: BUPIVACAINE 0.5 % 5 MG/1 ML MPF 30ML VIAL ONE (07:22)
[2020-05-02] MEDS ORDERED: PAPAVERINE HCL INJ 30 MG/ML 2 ML VIAL ONE (07:22)
[2020-05-02] MEDS ORDERED: HEPARIN (PORCINE) 1000 UNIT/ML 10 ML (CATH LAB USE ONLY) ONE (07:22)
[2020-05-02] MEDS ORDERED: EPINEPHrine INJ 1 MG/ML AMP ONE (07:22)
[2020-05-02] MEDS ORDERED: LIDOCAINE HCL 1% 20 ML VIAL ONE (07:23)
[2020-05-02] MEDS ORDERED: THROMBIN FOR SOLN 20000 UNIT KIT ONE (07:23)
[2020-05-02] MEDS ORDERED: GELATIN SPONGE SZ 100 ONE (07:23)
--- NOTE | 2020-05-02 07:45 | History & Physical Report ---
Date of Service May 02, 2020 Assessment & Plan (1) Pseudoaneurysm following procedure: Patient is admitted at this time for repair of a pseudoaneurysm as well as a femoral endarterectomy for a severe stenosis at the location of the aneurysm. I have discussed the risks options and benefits of the procedure with the patient. The patient understands the risks options and benefits and agrees to the procedure. History of Present Illness Chief Complaint: Pseudoaneurysm of the right groin. 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 She does require surgical repair for this. However, this is has been inhibited by multiple illnesses including Pseudomonas infection as well as a C. diff infection. She denies any current symptoms related to the pseudoaneurysm and denies any pain around the aneurysm. e obtained a CT arteriogram of the abdomen and pelvis through the thigh, which evaluated the pseudoaneurysm showing that there is an area of focal stenosis in the common femoral artery proximal to the pseudoaneurysm as well as the presence of the pseudoaneurysm. We have discussed the risks and benefits of surgery with the patient and her sister, who is present today and they both would like to p rocmagalis with operative repair as soon as possible so that way she may continue to receive care for her newly diagnosed colon cancer. The patient understands the risks and benefits and we will schedule it for the following week. If you have any questions or concerns, please do not hesitate to contact us. Allergies Allergy/AdvReac Type Severity Reaction Status Date / Time milk AdvReac Mild Diarrhea Verified 05/02/20 07:44 Home Medications Home Medications Medication Instructions Recorded Confirmed Type albuterol sulfate 2 inh INHALATION Q6 PRN 10/15/19 04/25/20 History atorvastatin 40 mg PO QAM 10/15/19 04/25/20 History cholecalciferol (vitamin D3) 1,000 unit PO QAM 10/15/19 04/25/20 History [Vitamin D3] melatonin 3 mg PO HS PRN 10/15/19 04/25/20 History potassium chloride 10 meq PO BID 10/15/19 04/25/20 History torsemide 20 mg PO 3XWK 10/15/19 04/25/20 History digoxin 125 mcg (0.125 mg) tablet 125 mcg PO MOWEFR #28 tab 11/08/19 04/25/20 Rx ferrous sulfate 325 mg (65 mg 325 mg PO BID 02/08/20 04/25/20 History iron) tablet,delayed release multivitamin 1 tab PO QAM 02/08/20 04/25/20 History acetaminophen 325 mg PO Q8 PRN 03/29/20 04/25/20 History nitroglycerin 0.4 mg SUBLINGUAL UD PRN 04/03/20 04/25/20 History pantoprazole 40 mg PO QAM 04/03/20 04/25/20 History vancomycin 125 mg PO QAM 04/03/20 04/25/20 History metoprolol succinate 25 mg PO QAM #30 tab 04/08/20 04/25/20 Rx Lactobacillus acidoph-L.bulgar 1 tab PO BID 04/25/20 04/25/20 History [Floranex] apixaban [Eliquis] 2.5 mg PO BID 04/25/20 04/25/20 History Past Med/Surg History Medical History Atrial fibrillation, permanent C. 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 small ASD under surveillance by cardiology Pseudoaneurysm Severe aortic stenosis hx s/p TAVR (08/2019), Mild periprosthetic aortic regurgitation per 03/2020 echo Stroke 4+ years ago, no residual effects Surgical History H/O tooth extraction 4 remaining teeth History of ankle fracture Right ankle fracture repair History of cardiac cath 07/2019 History of cataract surgery R/L History of colonoscopy History of esophagogastroduodenoscopy (EGD) History of tonsillectomy and adenoidectomy S/P TAVR (transcatheter aortic valve replacement) 08/2019 Family History Father Cancer Social History Smoking Status: Never smoker Second Hand Exposure: No; Do You Dip or Chew Tobacco: No; Hx Alcohol Use: No Hx Substance Use: No Preferred Language: Ukrainian Communication Ability: Effective Cissp Required: No Beliefs That Will Affect Care: None Current Living Situation: Family Current Living Situation Comment: Brother and sister in law Feels Safe at Home: Yes Safety Concerns: Feels Safe At This Time Assistive Devices: Glasses and Walker Review of Systems All systems reviewed & are unremarkable except as noted in HPI & below Physical Exam Physical Exam: On physical examination, she is well appearing, well-nourished, and in no acute distress. She is breathing comfortably on room air. Her lungs are clear to auscultation. Her pulse is regular. Her abdomen is obese, but soft, nontender, nondistended. Her right groin has a firm, nontender, pulsatile mass. There are no overlying skin changes. There is no sign of infection, including erythema, and no drainage. The bilateral lower extremities, particularly notable from the knee to the ankle, exhibit very increased girth consistent with bilateral lower extremity chronic lymphedema. There do not appear to be any active infections of the bilateral lower extremities. On the right, there is a palpable dorsalis pedis pulse. The dorsalis pedis signal was confirmed on Doppler insonation to be multiphasic. There are no areas of discoloration to the toes. There are no wounds to the right foot. The right foot is warm to the touch and has good capillary refill. Motor and sensory are grossly intact.
--- NOTE | 2020-05-02 08:04 | History & Physical Bridge Note ---
Date of Service May 02, 2020 History & Physical Bridge Note I have examined the patient, reviewed the History & Physical and in the interval since the performance of the History & Physical I have noted the following changes of clinical significance: no changes noted
[2020-05-02 08:26] LABS: BUN Creatinine Ratio 18.9 (10-20); Calcium 9.4 mg/dl (8.5-10.1); Creatinine Clr Calc Pharmacy 22.1 ml/min; Est GFR (African American) 33.2; Est GFR (Non-African American) 28.6; Potassium 3.6 mmol/L (3.5-5.1)
[2020-05-02] MEDS ORDERED: ONDANSETRON INJ 2 MG/ML 2 ML VIAL ONE (08:59)
[2020-05-02] MEDS ORDERED: CISATRACURIUM BESYLATE IV SOLN 2 MG/ML 10 ML VIAL IV ONE (08:59)
[2020-05-02] MEDS ORDERED: NEOSTIGMINE METHYLSULFATE 5 MG/5 ML SYR ONE (08:59)
[2020-05-02] MEDS ORDERED: LIDOCAINE HCL 2% 2 ML VIAL/AMP(20MG/ML) INFIL ONE (08:59)
[2020-05-02] MEDS ORDERED: DEXAMETHASONE SOD INJ 4 MG/ML VIAL ONE (08:59)
[2020-05-02] MEDS ORDERED: fentaNYL citrate 100 MCG/2 ML VIAL ONE ×2 (08:59→10:24)
[2020-05-02] MEDS ORDERED: PHENYLEPHRINE HCL 10 MG/ML VIAL ONE (08:59)
[2020-05-02] MEDS ORDERED: GLYCOPYRROLATE 0.2 MG/ML VIAL ONE (08:59)
[2020-05-02] MEDS ORDERED: PROPOFOL IV EMULSION 10 MG/ML 20 ML VIAL IV ONE (08:59)
[2020-05-02] MEDS ORDERED: MoRPHine SULFATE 4 MG/ML 1 ML CARP\\VIAL IV PRN (11:55)
[2020-05-02] MEDS ORDERED: oxyCODONE/ACETAMINOPHEN 5mg/325mg TAB PO PRN (11:55)
[2020-05-02] MEDS ORDERED: NITROGLYCERIN SL 0.4 MG/TAB TAB SL PRN (11:59)
[2020-05-02] MEDS ORDERED: MELATONIN 3 MG TAB PO PRN (11:59)
[2020-05-02] MEDS ORDERED: ALBUTEROL HFA 8 GM INHALER INH PRN (11:59)
--- NOTE | 2020-05-02 12:06 | Operative Report ---
Post Operative Report Pre & Post Diagnosis Operation Date: 05/02/20 08:50 Pre-Op Diagnosis: Pseudoaneursym Right Femoral Artery Post-Op Diagnosis: Pseudoaneursym Right Femoral Artery I identified the patient and participated in the time-out.: Yes Procedure Operation Date: 05/02/20 08:50 Actual Procedures p Right Repair Femoral Artery Pseudoaneurysm with Interposition Graft(Right) - Mauro Mata MD Surgeon Mauro Mata MD Veneer Sample Maker Ibis,PAC Estimated Blood Loss 100 Findings Consistent with Post-Op Diagnosis Specimens Right groin lymph node Anesthesia Type General Complications none Disposition Accompanied Patient To Recovery: No Disposition: Recovery Room Indications Patient is 85-year-old female who developed a pseudoaneurysm right groin post percutaneous aortic valve resection. She also has colon cancer which needs to be resected. On CTA she was also found to have severe stenosis of her right common femoral artery. At this point we recommended repair of the pseudoaneurys m and repairing the stenosis. I have discussed the risks options and benefits of the procedure with the patient. The patient understands the risks options and benefits and agrees to the procedure. Description of Procedure The patient was taken to the operating room and placed in the supine position. The groin was then prepped and draped in a sterile manner. Patient was identified and a timeout was performed. Longitudinal incision was then made. This is carried down to the common femoral artery approximately the inguinal ligament. We also identified the superficial femoral profundofemoral artery distally. The pseudoaneurysm which is approximately walnut size was then isolated. Once it was isolated the superficial and profundofemoral arteries were clamped. The common femoral artery was clamped proximally. Aneurysm sac was then entered. Sac was resected. A longitudinal arteriotomy was then made from the hole in the common femoral artery anteriorly proximal distally. There is a large amount of scar tissue present. Endarterectomy was then accomplished when this was done the midportion of the common femoral artery which was the hyperplasia was very thinned and irregular. There was hard plaque removed distally. We therefore decided to do an interposition graft. An 8 mm propatent graft was brought to the operative field. It was trimmed the appropriate length. Proximal distal anastomosis were then done using a CV 6 Chester-Edi suture. The graft extended from the common femoral artery at the inguinal ligament down to the bifurcation of the common femoral artery. Once this was sewn in place clamps were removed. Excellent flow was heard in the profunda and superficial femoral arteries. Hemostasis was then obtained of the wound. Once this was accomplished the wound was closed with a running 2-0 Vicryl suture for the femoral sheath running 3-0 Vicryl subtendinous layer and lady for the skin. Sterile dressings were applied to the wound.The patient left the operation room in satisfactory condition and tolerated the procedure well. All needle and sponge counts were correct at the end of the procedure. Antonia Barone Pac assisted due to lack of resident availability and was necessary for positioning, draping, retraction, wound closure deep layers, subcutaneous tissue, and skin closure and was necessary for assisting with the case. I attest to the content of the Intraoperative Record and any orders documented therein. Any exceptions are noted below.
[2020-05-02] MEDS ORDERED: ePHEDrine sulfate 50 MG/ML AMP IV PRN (12:19)
[2020-05-02] MEDS ORDERED: PROMETHAZINE HCL 12.5 MG in SODIUM CHLORIDE 0.9% 50 ML IV PRN (12:19)
[2020-05-02] MEDS ORDERED: FLUMAZENIL 0.1 MG/1 ML 10 ML VIAL IV PRN (12:19)
[2020-05-02] MEDS ORDERED: ONDANSETRON INJ 2 MG/ML 2 ML VIAL IV PRN (12:19)
[2020-05-02] MEDS ORDERED: ATROPINE SULFATE 0.1 MG/ML 10ML SYR IV PRN (12:19)
[2020-05-02] MEDS ORDERED: NALOXONE HCL 0.4 MG/1 ML VIAL/CARP IV PRN (12:19)
[2020-05-02] MEDS ORDERED: LABETALOL HCL IV 5 MG/ML 20ML IV PRN (12:19)
[2020-05-02] MEDS ORDERED: fentaNYL citrate 100 MCG/2 ML VIAL IV PRN (12:19)
[2020-05-02 12:45] LABS: Basophils # (auto) 0.03 K/uL (0-0.2); Basophils % (auto) 0.4 %; Eosinophils # (auto) 0.37 K/uL (0-0.5); Eosinophils % (auto) 4.7 %; Hematocrit (blood only) 30.6 % (37-47); Hemoglobin 9.9 g/dL (12.0-16.0); Immature Granulocytes # (auto) 0.01 K/uL (0.00-0.02); Immature Granulocytes % (auto) 0.1 %; Lymphocytes # (auto) 2.01 K/uL (1.2-3.4); Lymphocytes % (auto) 25.3 %; Mean Corpuscular Hemoglobin 32.1 pg (25-34); Mean Corpuscular Hgb Conc 32.4 g/dL (32-36); Mean Corpuscular Volume 99.4 fL (80-100); Mean Platelet Volume 10.1 fL (7.4-10.4); Monocytes # (auto) 0.71 K/uL (0.11-0.59); Monocytes % (auto) 8.9 %; Neutrophils # (auto) 4.82 K/uL (1.4-6.5); Neutrophils % (auto) 60.6 %; Platelet Count 195 K/uL (130-400); RDW Standard Deviation 54.6 fL (36.4-46.3); Red Blood Count 3.08 M/uL (4.2-5.4); White Blood Count 7.95 K/uL (4.8-10.8)
--- NOTE | 2020-05-02 14:00 | Anesthesiology Progress Note ---
Date of Service May 02, 2020 Anesthesia Post Procedure Vital Signs Vital Signs: Temp Pulse Pulse Resp BP BP Pulse Ox 05/02/20 13:35 36.6 C 68 16 104/41 L 99 05/02/20 13:25 63 16 104/41 L 99 05/02/20 13:15 62 18 105/40 L 100 05/02/20 13:05 76 18 97/37 L 100 05/02/20 12:55 66 18 104/41 L 99 05/02/20 12:45 36.5 C 67 18 96/57 L 99 05/02/20 12:35 70 18 96/57 L 99 05/02/20 12:25 88 18 86/40 L 98 05/02/20 12:15 36.4 C L 95 H 18 104/61 98 05/02/20 07:56 36.6 C 92 H 20 151/80 H 97 Transfer of Care Handoff Completed per policy Notes Mental Status: alert / awake / arousable Patient Amnestic to Procedure: Yes Nausea / Vomiting: adequately controlled Pain: adequately controlled Airway Patency, RR, SpO2: stable & adequate BP & HR: stable & adequate and see Notes below (patient has labile blood pressure, with low diastolic BP;pt to go to surgical ICU overnight) Hydration State: stable & adequate Anesthetic Complications: no major complications apparent
--- NOTE | 2020-05-02 14:46 | Critical Care Consultation ---
Date of Consultation May 02, 2020 Assessment & Plan (1) Pseudoaneurysm following procedure: The patient underwent a pseudoaneurysm repair of the right femoral artery by Dr. Mata. The site appears clean dry and intact. Pulses are present via Doppler on the right. She had some mild postop acute blood loss anemia. She appears stable. Pain is controlled. Urodynamic management per Dr. Mata. He ordered 80 mL an hour of lactated Ringer's. Apixaban twice daily for atrial fibrillation. Vancomycin p.o. for her C. difficile infection. Continue isolation precautions. Critical care services are available if needed. ICU team will continue to monitor while she is in the intensive care unit. Thank you for the consult. (2) C. difficile diarrhea: (3) Atrial fibrillation, permanent: (4) S/P TAVR (transcatheter aortic valve replacement): History of Present Illness Reason for Consultation: ICU monitoring Requesting Physician: Dr. Mata Attending Physician: Mauro Mata MD History of Present Illness This is an 85-year-old female with a past medical history of recent TAVR from a right common femoral artery approach who developed a pseudoaneurysm and underwent pseudoaneurysm repair and femoral endarterectomy for severe stenosis. She also has a history of pseudomonal endocarditis and C. difficile infection for which she is undergoing active treatment. She underwent a planned procedure today and is currently in the intensive care unit for routine post operative management and follow-up. She denies any complaints at this time including chest pain, fevers, chills, night sweats. She has some mild incisional pain around the right femoral site. She reportedly had 100 mL loss of blood during the perioperative period. Notably, she underwent a CTA of her abdomen on 03/29/2020 which demonstrated a 7 cm sigmoid colon mass. She under went a flex sig which demonstrated a tubular adenoma with high-grade dysplasia. She also was found to have high-grade stenosis involving the proximal right renal artery, 80% diameter stenosis of the celiac artery, 50% diameter stenosis of the proximal superficial femoral artery. CT of her chest was completed at that time as well which demonstrated no evidence of pulmonary embolism. Bilateral effusions were seen. Allergies Allergy/AdvReac Type Severity Reaction Status Date / Time milk AdvReac Mild Diarrhea Verified 05/02/20 07:44 lactose AdvReac Verified 05/02/20 16:06 Home Medications Home Medications Medication Instructions Recorded Confirmed Type albuterol sulfate 2 inh INHALATION Q6 PRN 10/15/19 05/02/20 History atorvastatin 40 mg PO QAM 10/15/19 05/02/20 History cholecalciferol (vitamin D3) 1,000 unit PO QAM 10/15/19 05/02/20 History [Vitamin D3] melatonin 3 mg PO HS PRN 10/15/19 05/02/20 History potassium chloride 10 meq PO BID 10/15/19 05/02/20 History torsemide 20 mg PO 3XWK 10/15/19 05/02/20 History digoxin 125 mcg (0.125 mg) tablet 125 mcg PO MOWEFR #28 tab 11/08/19 05/02/20 Rx ferrous sulfate 325 mg (65 mg 325 mg PO BID 02/08/20 05/02/20 History iron) tablet,delayed release multivitamin 1 tab PO QAM 02/08/20 05/02/20 History acetaminophen 325 mg PO Q8 PRN 03/29/20 05/02/20 History nitroglycerin 0.4 mg SUBLINGUAL UD PRN 04/03/20 05/02/20 History pantoprazole 40 mg PO QAM 04/03/20 05/02/20 History vancomycin 125 mg PO QAM 04/03/20 05/02/20 History metoprolol succinate 25 mg PO QAM #30 tab 04/08/20 05/02/20 Rx Lactobacillus acidoph-L.bulgar 1 tab PO BID 04/25/20 05/02/20 History [Floranex] apixaban [Eliquis] 2.5 mg PO BID 04/25/20 05/02/20 History Patient History Medical History Atrial fibrillation, permanent C. difficile diarrhea symptoms present. pt states s/s have not resolved. 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 small ASD under surveillance by cardiology Pseudoaneurysm Severe aortic stenosis hx s/p TAVR (08/2019), Mild periprosthetic aortic regurgitation per 03/2020 echo Stroke 4+ years ago, no residual effects Surgical History H/O tooth extraction 4 remaining teeth History of ankle fracture Right ankle fracture repair History of cardiac cath 07/2019 History of cataract surgery R/L History of colonoscopy History of esophagogastroduodenoscopy (EGD) History of tonsillectomy and adenoidectomy S/P TAVR (transcatheter aortic valve replacement) 08/2019 Family History Father Cancer Social History Smoking Status: Never smoker Second Hand Exposure: No; Do You Dip or Chew Tobacco: No; Hx Alcohol Use: No Hx Substance Use: No Preferred Language: Polish Communication Ability: Effective Scaffolding Helper Required: No Beliefs That Will Affect Care: None Current Living Situation: Family Current Living Situation Comment: Brother and sister in law Other Information That Helps Us Care for You: No Feels Safe at Home: Yes Safety Concerns: Feels Safe At This Time Assistive Devices: Walker Review of Systems Review of Systems: All systems reviewed & are unremarkable except as noted in HPI & below Physical Exam Constitutional: WD/WN, vitals as above Elderly and frail-appearing. Eyes: PERRL, conjunctivae normal, anicteric sclerae ENMT: Ears: + hearing impairment Neck: normal visual inspection Respiratory: normal respiratory effort, lungs clear to auscultation Cardiovascular: RRR, no murmur, no edema Gastrointestinal (Abdomen): normal bowel sounds, soft, nontender, no hepatosplenomegaly Musculoskeletal: no cyanosis or clubbing, extremities motor strength 5/5 Skin: no rashes, warm and dry Neurologic: patellar DTR's 2+ bilat, sensation intact Psychiatric: A+Ox3, euthymic affect Results & Data Results & Data ([facility]) Vital Signs (Past 12 Hours) Vital Signs Temp Pulse Pulse Resp BP BP Pulse Ox 05/02/20 13:35 97.9 F 68 16 104/41 L 99 05/02/20 13:25 63 16 104/41 L 99 10/20/20 13:15 62 18 105/40 L 100 05/02/20 13:05 76 18 97/37 L 100 05/02/20 12:55 66 18 104/41 L 99 05/02/20 12:45 97.7 F 67 18 96/57 L 99 05/02/20 12:35 70 18 96/57 L 99 05/02/20 12:25 88 18 86/40 L 98 05/02/20 12:15 97.5 F L 95 H 18 104/61 98 05/02/20 07:56 97.9 F 92 H 20 151/80 H 97 reviewed labs, imaging and vital signs Coding Level of Care Code 72552 Inpt Consult Level 5 Diagnoses Pseudoaneurysm following procedure T81.718A; I72.9 C. difficile diarrhea A04.72 Atrial fibrillation, permanent I48.21 S/P TAVR (transcatheter aortic valve replacement) Z95.2
[2020-05-02] MEDS: D5W AND 1/2NSS 1,000 ML IV SCH ×2 (15:49→21:16)
[2020-05-02] MEDS: ACETAMINOPHEN 325 MG TAB PO PRN (17:03)
[2020-05-02] MEDS: ceFAZolin 1000MG 1,000 MG/7.5 ML SYR IV SCH (18:27)
[2020-05-02] MEDS: APIXABAN 2.5 MG TAB PO SCH (21:17)
[2020-05-02] MEDS: LACTOBACILLUS ACIDOPHILUS 1 GM PACK PO SCH (21:19)
[2020-05-02] MEDS: POTASSIUM CHLORIDE 10 MEQ TABCR PO SCH (21:19)
[2020-05-02] MEDS: FERROUS SULFATE 325 MG TAB PO SCH (21:19)
[2020-05-03] MEDS: D5W AND 1/2NSS 1,000 ML IV SCH ×3 (00:43→16:15)
[2020-05-03] MEDS: ceFAZolin 1000MG 1,000 MG/7.5 ML SYR IV SCH (02:12)
[2020-05-03 04:45] LABS: Basophils # (auto) 0.03 K/uL (0-0.2); Basophils % (auto) 0.4 %; Eosinophils # (auto) 0.63 K/uL (0-0.5); Eosinophils % (auto) 7.6 %; Hematocrit (blood only) 28.8 % (37-47); Immature Granulocytes # (auto) 0.02 K/uL (0.00-0.02); Immature Granulocytes % (auto) 0.2 %; Lymphocytes # (auto) 1.66 K/uL (1.2-3.4); Mean Corpuscular Hemoglobin 31.8 pg (25-34); Mean Corpuscular Hgb Conc 31.3 g/dL (32-36); Mean Corpuscular Volume 101.8 fL (80-100); Mean Platelet Volume 10.3 fL (7.4-10.4); Monocytes # (auto) 0.92 K/uL (0.11-0.59); Monocytes % (auto) 11.1 %; Neutrophils # (auto) 5.03 K/uL (1.4-6.5); Neutrophils % (auto) 60.7 %; Platelet Count 197 K/uL (130-400); RDW Coefficient of Variation 15.1 % (11.5-14.5); RDW Standard Deviation 55.5 fL (36.4-46.3); Red Blood Count 2.83 M/uL (4.2-5.4); White Blood Count 8.29 K/uL (4.8-10.8)
[2020-05-03 05:23] LABS: Calcium 8.2 mg/dl (8.5-10.1); Creatinine Clr Calc Pharmacy 23.2 ml/min; Est GFR (African American) 35.3; Est GFR (Non-African American) 30.4; Potassium 3.9 mmol/L (3.5-5.1)
--- NOTE | 2020-05-03 08:46 | Surgery Progress Note ---
Date of Service May 03, 2020 Assessment & Plan (1) Pseudoaneurysm following procedure: Doing well post op. Will transfer to floor and start PT/OT Possible discharge tomorrow. Admission and Anticipated Discharge Date Admission Date: May 02, 2020 Subjective Patient is awake and alert. Not complainging of any pain. Physical Exam Constitutional: Dressing intact. Good doppler distally in right leg. Good cap refill. Results & Data ([facility]) Vital Signs (Past 12 Hours) Vital Signs Temp Pulse Pulse Resp BP BP BP 05/03/20 08:24 36.9 C 79 15 142/92 H 05/03/20 06:00 75 18 112/58 L 91/40 L 05/03/20 05:00 76 16 108/40 L 103/49 L 05/03/20 04:00 36.5 C 74 14 120/40 L 89/39 L 05/03/20 03:00 70 18 101/40 L 83/39 L 05/03/20 02:03 64 18 05/03/20 00:00 36.5 C 72 18 115/45 L 05/02/20 23:00 61 16 05/02/20 22:55 64 19 101/43 L 05/02/20 22:30 71 18 05/02/20 22:15 55 L 13 05/02/20 22:00 68 14 05/02/20 21:54 68 13 84/43 L 05/02/20 21:29 68 21 110/56 L 05/02/20 21:00 63 14 Pulse Ox 05/03/20 08:24 93 05/03/20 06:00 97 05/03/20 05:00 96 05/03/20 04:00 98 05/03/20 03:00 95 05/03/20 02:03 97 05/03/20 00:00 97 05/02/20 23:00 98 05/02/20 22:55 96 05/02/20 22:30 95 05/02/20 22:15 95 05/02/20 22:00 96 05/02/20 21:54 96 05/02/20 21:29 98 05/02/20 21:00 96
[2020-05-03] MEDS ORDERED: NON-FORMULARY MEDICATION (Vancomycin 125 MG) PO SCH (09:00)
[2020-05-03] MEDS: FERROUS SULFATE 325 MG TAB PO SCH ×2 (10:08→21:00)
[2020-05-03] MEDS: CHOLECALCIFEROL 1,000 UNITS 25 MCG TAB PO SCH (10:08)
[2020-05-03] MEDS: METOPROLOL SUCC 25MG EXT REL TAB PO SCH (10:08)
[2020-05-03] MEDS: VANCOMYCIN HCL 125 MG/2.5ML SOLN PO SCH (10:08)
[2020-05-03] MEDS: RASPBERRY SYRUP 5 ML UDP PO SCH (10:08)
[2020-05-03] MEDS: MULTIVITAMIN TAB PO SCH (10:09)
[2020-05-03] MEDS: POTASSIUM CHLORIDE 10 MEQ TABCR PO SCH ×2 (10:09→21:00)
[2020-05-03] MEDS: APIXABAN 2.5 MG TAB PO SCH ×2 (10:09→21:01)
[2020-05-03] MEDS: PANTOprazole 40 MG TAB PO SCH (10:09)
[2020-05-03] MEDS: LACTOBACILLUS ACIDOPHILUS 1 GM PACK PO SCH ×2 (10:09→20:59)
[2020-05-03] MEDS: TORSEMIDE 20 MG TAB PO SCH (10:09)
[2020-05-03] MEDS: ATORVASTATIN 40 MG TAB PO SCH (10:09)
[2020-05-03] MEDS: ACETAMINOPHEN 325 MG TAB PO PRN (13:35)
[2020-05-03] MEDS: DIGOXIN 0.125 MG TAB PO SCH (16:00)
[2020-05-03] MEDS ORDERED: COUGH DROP (SUGAR FREE) LOZ 24 LOZ/1 BOX BUCCAL ONE (16:04)
[2020-05-04] MEDS: ACETAMINOPHEN 325 MG TAB PO PRN (04:43)
[2020-05-04] MEDS: PANTOprazole 40 MG TAB PO SCH (08:44)
[2020-05-04] MEDS: FERROUS SULFATE 325 MG TAB PO SCH ×2 (08:44→21:11)
[2020-05-04] MEDS: ATORVASTATIN 40 MG TAB PO SCH (08:44)
[2020-05-04] MEDS: CHOLECALCIFEROL 1,000 UNITS 25 MCG TAB PO SCH (08:44)
[2020-05-04] MEDS: POTASSIUM CHLORIDE 10 MEQ TABCR PO SCH ×2 (08:44→21:11)
[2020-05-04] MEDS: MULTIVITAMIN TAB PO SCH (08:44)
[2020-05-04] MEDS: APIXABAN 2.5 MG TAB PO SCH ×2 (08:44→21:11)
[2020-05-04] MEDS: METOPROLOL SUCC 25MG EXT REL TAB PO SCH (08:44)
[2020-05-04] MEDS: LACTOBACILLUS ACIDOPHILUS 1 GM PACK PO SCH ×2 (08:44→21:11)
[2020-05-04] MEDS: VANCOMYCIN HCL 125 MG/2.5ML SOLN PO SCH (10:09)
[2020-05-04] MEDS: RASPBERRY SYRUP 5 ML UDP PO SCH (10:09)
[2020-05-04] MEDS ORDERED: INFLUENZA ADMINISTRATION CHARGE ONE (10:36)
[2020-05-04] MEDS ORDERED: INFLUENZA VIRUS QUAD VACCINE 0.5 ML SYR IM ONE (10:36)
--- NOTE | 2020-05-04 10:39 | Surgery Progress Note ---
Date of Service May 04, 2020 Assessment & Plan (1) Pseudoaneurysm following procedure: Doing well post op. Possible discharge tomorrow. Admission and Anticipated Discharge Date Admission Date: May 02, 2020 Subjective Patient is awake and alert. Not complainging of any pain. Physical Exam Constitutional: WD/WN, vitals as above Cardiovascular: Extremities: normal capillary refill good distal dopplers Skin: + incision (incision dry and clean) Results & Data ([facility]) Vital Signs (Past 12 Hours) Vital Signs Temp Pulse Resp BP Pulse Ox 05/04/20 08:04 37.2 C 88 16 123/62 96 05/03/20 22:50 36.5 C 89 16 113/59 L 100
[2020-05-05] MEDS: MULTIVITAMIN TAB PO SCH (09:16)
[2020-05-05] MEDS: APIXABAN 2.5 MG TAB PO SCH (09:16)
[2020-05-05] MEDS: METOPROLOL SUCC 25MG EXT REL TAB PO SCH (09:16)
[2020-05-05] MEDS: PANTOprazole 40 MG TAB PO SCH (09:16)
[2020-05-05] MEDS: LACTOBACILLUS ACIDOPHILUS 1 GM PACK PO SCH (09:16)
[2020-05-05] MEDS: ATORVASTATIN 40 MG TAB PO SCH (09:16)
[2020-05-05] MEDS: FERROUS SULFATE 325 MG TAB PO SCH (09:16)
[2020-05-05] MEDS: POTASSIUM CHLORIDE 10 MEQ TABCR PO SCH (09:16)
[2020-05-05] MEDS: TORSEMIDE 20 MG TAB PO SCH (09:16)
[2020-05-05] MEDS: CHOLECALCIFEROL 1,000 UNITS 25 MCG TAB PO SCH (09:16)
[2020-05-05] MEDS: VANCOMYCIN HCL 125 MG/2.5ML SOLN PO SCH (10:07)
[2020-05-05] MEDS: RASPBERRY SYRUP 5 ML UDP PO SCH (10:07)
--- NOTE | 2020-05-05 13:36 | Surgery Progress Note ---
Date of Service May 05, 2020 Assessment & Plan (1) Pseudoaneurysm following procedure: Pt now POD #3 after R groin pseudoaneurysm repair. Doing well post op. Will d/c today, to [facility] if able. Admission and Anticipated Discharge Date Admission Date: May 02, 2020 Subjective 85 yo f with multiple medical problems, POD #3 after R groin pseudoaneurysm repa ir with interposition PTFE graft, seen in f/u today. Pt states no complaints. Pt has ambulated with walker. Review of Systems Review of Systems: All systems reviewed & are unremarkable except as noted in HPI & below Physical Exam Constitutional: WD/WN, vitals as above Cardiovascular: Extremities: normal capillary refill Skin: + incision (R groin clean, intact w lady. +moderate serous drainage noted) Results & Data ([facility]) Vital Signs (Past 12 Hours) Vital Signs Temp Pulse Resp BP Pulse Ox 05/05/20 09:11 36.7 C 79 16 120/70 99 05/05/20 06:15 37 C
[2020-05-05] MEDS: DIGOXIN 0.125 MG TAB PO SCH (15:41)
--- NOTE | 2020-05-08 09:42 | Discharge Summary ---
Date of Service May 08, 2020 Admission HPI Per Admitting Provider Maxine Arias is a pleasant 85-year-old woman with a slowly growing pseudoaneurysm of her right common femoral artery following a TAVR procedure. She does require surgical repair for this. However, this is has been inhibited by multiple illnesses including Pseudomonas infection as well as a C. diff infection. She denies any current symptoms related to the pseudoaneurysm and denies any pain around the aneurysm. We obtained a CT arteriogram of the abdomen and pelvis through the thigh, which evaluated the pseudoaneurysm showing that there is an area of focal stenosis in the common femoral artery proximal to the pseudoaneurysm as well as the presence of the pseudoaneurysm. We have discussed the risks and benefits of surgery with the patient and her sister, who is present today and they both would like to proceed with operative repair as soon as possible so that way she may continue to receive care for her newly diagnosed colon cancer. The patient understands the risks and benefits and we will schedule it for the following week. If you have any questions or concerns, please do not hesitate to contact us. Admission Exam Per Admitting Provider On physical examination, she is well appearing, well-nourished, and in no acute distress. She is breathing comfortably on room air. Her lungs are clear to auscultation. Her pulse is regular. Her abdomen is obese, but soft, nontender, nondistended. Her right groin has a firm, nontender, pulsatile mass. There are no overlying skin changes. There is no sign of infection, including erythema, and no drainage. The bilateral lower extremities, particularly notable from the knee to the ankle, exhibit very increased girth consistent with bilateral lower extremity chronic lymphedema. There do not appear to be any active infections of the bilateral lower extremities. On the right, there is a palpable dorsalis pedis pulse. The dorsalis pedis signal was confirmed on Doppler insonation to be multiphasic. There are no areas of discoloration to the toes. There are no wounds to the right foot. The right foot is warm to the touch and has good capillary refill. Motor and sensory are grossly intact. Principal Diagnosis 1. s/p R groin pseudoaneurysm repair with interposition PTFE graft 2. R groin pseudoaneurysm Discharge Exam Constitutional WD/WN, vitals as above Cardiovascular Extremities: normal capillary refill Skin + incision (R groin clean, intact w lady. +moderate serous drainage noted) Discharge Data Allergies Allergy/AdvReac Type Severity Reaction Status Date / Time milk AdvReac Mild Diarrhea Verified 05/02/20 07:44 lactose AdvReac Verified 05/02/20 16:06 Consultations 05/02/20 14:17 Consult Executive Sales Manager Routine Procedures Performed Operation Date: 05/02/20 08:50 Actual Procedures p Right Repair Femoral Artery Pseudoaneurysm with Interposition Graft(Right) - Mauro Mata MD Hospital Course (1) Pseudoaneurysm following procedure: Pt now POD #3 after R groin pseudoaneurysm repair. Doing well post op. Will d/c today, to [facility]. Total Time Total Time Spent Total Time Spent (In Minutes): 0 Discharge Plan Discharge Items Patient Disposition: Transfer Inpatient Rehab Fac Reason For Visit: Pseudoaneursym Right Femoral Artery Discharge Diagnosis: 1. s/p R groin pseudoaneurysm repair with interposition PTFE graft 2. R groin pseudoaneurysm Condition on Discharge: Good Activity: Per Instructions section Non-emergency contact: Primary Care Provider and Surgeon Call non-emergency contact if: your pain is not controlled, your pain is concerning for you, you have a fever, your wound has increased redness and your wound has increased drainage Follow-up/Referrals: Antonia Barone PA-C [Physician Interior Design Professional] - (Follow up in office in 2 weeks for staple removal) PCP,NO [Primary Care Provider] - Diet: Heart Healthy Addtl Attending Provider Instructions: 1. May shower, no bathing or soaking in water. Dry wound gently after. 2. No lifting more than 10 lbs x 6 weeks. 3. Ambulate as tolerated with walker. 4. Change dry dressing to R groin BID and when saturated. 5. Follow up appt needed with Dr Mata or Antonia Barone PA-C in 2 weeks for staple removal. ACTIVITY RECOMMENDATIONS: See Above SPECIAL CARE INSTRUCTIONS: Call your doctor if: * Temperature above 101 degrees * Pain not relieved by pain medicine ordered * There is increased drainage or redness from any incision * You have any unanswered questions or concerns. Pending Studies at Discharge: No Stand-Alone Forms: [facility] Skilled Items Patient informed of condition?: Yes DNR: No Discharge Level of Care: Acute rehab Communicable Disease: No Discharge Prognosis: Stable Lines: None Urinary Catheter: No Medications and DC Order Prescriptions: Continued digoxin [Digox] 125 mcg (0.125 mg) tablet 125 mcg PO MOWEFR Qty: 28 RF: 3 ferrous sulfate 325 mg (65 mg iron) tablet,delayed release (DR/EC) 325 mg PO BID RF: 0 multivitamin [Daily Multi-Vitamin] Tablet 1 tab PO QAM RF: 0 atorvastatin 40 mg Tablet 40 mg PO QAM RF: 0 potassium chloride 10 mEq Capsule, Extended Release 10 meq PO BID RF: 0 torsemide 20 mg Tablet 20 mg PO 3XWK RF: 0 melatonin 3 mg Tablet 3 mg PO HS PRN (Reason: Sleep) RF: 0 albuterol sulfate 90 mcg/actuation Hfa Aerosol Inhaler 2 inh INHALATION Q6 PRN (Reason: Wheezing) RF: 0 cholecalciferol (vitamin D3) [Vitamin D3] 25 mcg (1,000 unit) Tablet 1,000 unit PO QAM RF: 0 acetaminophen 325 mg Tablet 325 mg PO Q8 PRN (Reason: Pain) RF: 0 vancomycin 125 mg Capsule 125 mg PO QAM RF: 0 pantoprazole 40 mg tablet,delayed release (DR/EC) 40 mg PO QAM RF: 0 nitroglycerin 0.4 mg Tablet, Sublingual 0.4 mg sublingual UD PRN (Reason: Chest Pain) RF: 0 metoprolol succinate 25 mg Tablet Extended Release 24 Hr 25 mg PO QAM Qty: 30 RF: 1 Lactobacillus acidoph-L.bulgar [Floranex] 1 million cell Tablet 1 tab PO BID RF: 0 Eliquis 2.5 mg Tablet 2.5 mg PO BID RF: 0 Discharge Orders: Discharge Order (Routine); Ordered 05/05/20 Ordered By: Antonia Barone Admission Data Admit Date/Time: 05/02/20 11:55 Attending Provider: Mauro Mata Admit Provider: Mauro Mata Primary Care Provider: PCP,NO Other Providers: Romaine Gracia ; Rubén Eduardo ; Al Brady ; Mario Corea ; Elvin Newby ; Marco Bobo ; Silvana Chisholm ; [facility] Other Interventions: Discharge Summary Assessment (RN) Last Done: 05/05/20 16:14
== END 2020-05-05 17:21 | DRG 253 ==
LOC: ASU 07:07 → 1E 11:55 → 3E 05-03 09:36